=== PATIENT | male | born 1950 | race Caucasian/White ===

== ENCOUNTER 2017-07-08 14:50 | Inpatient (IN) | payer OTHER ==
[2017-07-08] MEDS ORDERED: NS 1/2 1000 ML IV 1,000 ML IV ONE (16:10)
[2017-07-08] MEDS: LEVAQUIN PREMIX IV 750 MG 750 MG/150 ML BAG IV SCH (16:25)
[2017-07-08] MEDS: NS 1/2 1000 ML IV 1,000 ML IV SCH (16:26)
[2017-07-08 17:01] LABS: ALANINE AMINOTRANSFERASE 15 Units/L (12-78); ALBUMIN 3.5 g/dL (3.4-5.0); ALKALINE PHOSPHATASE 77 Units/L (46-116); ASPARTATE AMINO TRANSFERASE 18 Units/L (15-37); BLOOD UREA NITROGEN 17 mg/dL (7-18); CALCIUM 8.8 mg/dL (8.5-10.1); CHLORIDE 97 mmol/L (98-107); CREATININE 1.04 mg/dL (0.70-1.30); SODIUM 134 mmol/L (136-145); TOTAL PROTEIN 6.7 g/dL (6.4-8.2); eGFR BLACK RACES > 60 (>60); eGFR NON BLACK RACES > 60 (>60)
[2017-07-08 17:07] LABS: BASOPHILS % (AUTO) 0.2 % (0.2-1.0); EOSINOPHILS # (AUTO) 0.1 x10^3/uL (0.0-0.2); EOSINOPHILS % (AUTO) 0.3 % (0.9-2.9); HEMATOCRIT 45.2 % (42.0-54.0); HEMOGLOBIN 15.2 g/dL (13.5-18.0); LYMPHOCYTES # (AUTO) 0.6 X10^3/uL (1.3-2.9); LYMPHOCYTES % (AUTO) 2.6 % (21.0-51.0); MEAN CORPUSCULAR HEMOGLOBIN 28.9 pg (27.0-34.0); MEAN CORPUSCULAR HGB CONC 33.6 g/dL (33.0-35.0); MEAN PLATELET VOLUME 7.3 fL (7.4-11.0); MONOCYTES # (AUTO) 1.7 x10^3/uL (0.3-0.8); MONOCYTES % (AUTO) 6.9 % (0.0-13.0); NEUTROPHILS # (AUTO) 21.8 x10^3/uL (2.2-4.8); PLATELET COUNT 216 X10^3/uL (150.0-450.0); RED BLOOD COUNT 5.26 X10^6/uL (4.7-6.0); RED CELL DISTRIBUTION WIDTH 15.9 % (11.6-16.5)
[2017-07-08] MEDS: DUONEB 0.5 MG/3 MG NEB SCH ×2 (17:11→21:45)
[2017-07-08 17:16] LABS: BAND NEUTROPHILS % 3 % (0-10); PLATELET MORPHOLOGY COMMENT NORMAL (NORMAL)
[2017-07-08 17:17] LABS: WHITE BLOOD COUNT 24.2 X10^3/uL (3.6-10.0)
[2017-07-08 17:49] VITALS: BMI 23.1
--- NOTE | 2017-07-08 18:17 | RAD ---
Examination: Chest, PA and lateral views History: Pneumonia, cough and SOB Comparison reference 12/26/2016 Findings: Continued normal heart size with no acute pulmonary, pleural or mediastinal abnormality. Impression: No interval change or acute chest findings. Reported By:
[2017-07-08] MEDS: ZOSYN VIAL 4.5 GM 4.5 GM in NS 100 ML IV + SPIKE MINIBAG* 100 ML IV SCH ×2 (18:23→21:38)
[2017-07-08] MEDS: ROBITUSSIN DM PO SCH ×2 (18:25→21:37)
[2017-07-08] MEDS ORDERED: NS 100 ML IV + SPIKE MINIBAG* 100 ML IV ONE (20:36)
[2017-07-08] MEDS: SOLU-Medrol 125 MG VIAL IVP SCH (21:39)
[2017-07-08] MEDS: PULMICORT NEB TX 0.5 MG NEB SCH (21:45)
[2017-07-08] MEDS: BROVANA IN SCH (21:45)
[2017-07-09] MEDS: DUONEB 0.5 MG/3 MG NEB SCH ×6 (00:44→20:43)
[2017-07-09] MEDS: ZOSYN VIAL 4.5 GM 4.5 GM in NS 100 ML IV + SPIKE MINIBAG* 100 ML IV SCH ×3 (05:58→21:41)
[2017-07-09] MEDS: SOLU-Medrol 125 MG VIAL IVP SCH ×3 (05:58→21:40)
[2017-07-09] MEDS: ROBITUSSIN DM PO SCH ×4 (08:38→21:40)
[2017-07-09] MEDS: LEVAQUIN PREMIX IV 750 MG 750 MG/150 ML BAG IV SCH (08:38)
[2017-07-09] MEDS: PULMICORT NEB TX 0.5 MG NEB SCH ×2 (09:22→20:43)
[2017-07-09] MEDS: BROVANA IN SCH ×2 (09:22→20:44)
[2017-07-09] MEDS ORDERED: NS 100 ML IV + SPIKE MINIBAG* 100 ML IV ONE (13:51)
[2017-07-09] MEDS: NS 1/2 1000 ML IV 1,000 ML IV SCH ×2 (14:09→21:44)
[2017-07-09] MEDS: TUSSIONEX PENNKINETIC SUSP PO PRN (20:46)
[2017-07-10] MEDS: DUONEB 0.5 MG/3 MG NEB SCH ×6 (00:54→21:34)
[2017-07-10] MEDS: SOLU-Medrol 125 MG VIAL IVP SCH ×3 (05:12→21:44)
[2017-07-10] MEDS: ZOSYN VIAL 4.5 GM 4.5 GM in NS 100 ML IV + SPIKE MINIBAG* 100 ML IV SCH ×3 (05:13→21:44)
[2017-07-10 06:36] LABS: BASOPHILS % (AUTO) 0.1 % (0.2-1.0); HEMATOCRIT 37.6 % (42.0-54.0); HEMOGLOBIN 12.9 g/dL (13.5-18.0); LYMPHOCYTES # (AUTO) 0.2 X10^3/uL (1.3-2.9); MEAN CORPUSCULAR HEMOGLOBIN 29.1 pg (27.0-34.0); MEAN CORPUSCULAR HGB CONC 34.2 g/dL (33.0-35.0); MEAN CORPUSCULAR VOLUME 85.1 fL (80.0-100.0); MEAN PLATELET VOLUME 7.5 fL (7.4-11.0); MONOCYTES # (AUTO) 0.6 x10^3/uL (0.3-0.8); MONOCYTES % (AUTO) 3.2 % (0.0-13.0); NEUTROPHILS # (AUTO) 16.7 x10^3/uL (2.2-4.8); NEUTROPHILS % (AUTO) 95.7 % (42.0-75.0); PLATELET COUNT 177 X10^3/uL (150.0-450.0); RED BLOOD COUNT 4.42 X10^6/uL (4.7-6.0); RED CELL DISTRIBUTION WIDTH 15.8 % (11.6-16.5); WHITE BLOOD COUNT 17.5 X10^3/uL (3.6-10.0)
[2017-07-10 06:52] LABS: ALANINE AMINOTRANSFERASE 18 Units/L (12-78); ALBUMIN 2.8 g/dL (3.4-5.0); ALKALINE PHOSPHATASE 67 Units/L (46-116); ASPARTATE AMINO TRANSFERASE 13 Units/L (15-37); BLOOD UREA NITROGEN 18 mg/dL (7-18); CALCIUM 8.3 mg/dL (8.5-10.1); CARBON DIOXIDE 26.5 mmol/L (21-32); CHLORIDE 99 mmol/L (98-107); COR CA(FOR HYPOALB) 9.3 mg/dL (8.5-10.1); COR NA(FOR HYPERGLY) 135 mmol/L (136-145); CREATININE 1.05 mg/dL (0.70-1.30); SODIUM 133 mmol/L (136-145); TOTAL PROTEIN 5.9 g/dL (6.4-8.2); eGFR BLACK RACES > 60 (>60); eGFR NON BLACK RACES > 60 (>60)
[2017-07-10 07:14] LABS: PLATELET MORPHOLOGY COMMENT NORMAL (NORMAL)
[2017-07-10] MEDS ORDERED: POTASSIUM CHL 40 MEQ/NS 0.45% 500 ML IV PRN (07:26)
[2017-07-10] MEDS ORDERED: POTASSIUM CHL 60 MEQ/NS 0.45% 500 ML IV PRN (07:26)
[2017-07-10] MEDS ORDERED: K-LYTE EFFERVESCENT PO PRN (07:26)
[2017-07-10] MEDS ORDERED: K-RIDER 10 MEQ/NS 100 ML 10 MEQ/100 ML BAG IV PRN (07:26)
[2017-07-10] MEDS ORDERED: MAGNESIUM SULFATE 1 GM/100 mL PREMIX 1 GM/100 ML BAG IV PRN (07:26)
[2017-07-10] MEDS ORDERED: POTASSIUM CHLORIDE LIQ 20 MEQ UDC PO PRN (07:26)
[2017-07-10] MEDS ORDERED: MAG-OX TAB PO PRN (07:26)
[2017-07-10] MEDS: PULMICORT NEB TX 0.5 MG NEB SCH ×2 (09:11→21:34)
[2017-07-10] MEDS: BROVANA IN SCH ×2 (09:11→21:35)
[2017-07-10] MEDS: LEVAQUIN PREMIX IV 750 MG 750 MG/150 ML BAG IV SCH (10:11)
[2017-07-10] MEDS: NS 1/2 1000 ML IV 1,000 ML IV SCH ×2 (10:11→23:13)
[2017-07-10] MEDS: ROBITUSSIN DM PO SCH ×4 (10:12→21:43)
--- NOTE | 2017-07-10 10:20 | RAD ---
HISTORY: CHF with shortness of breath Study: Two-view chest Comparison: 07/08/2017 Findings: The trachea is midline. The cardiac silhouette is unremarkable. The lungs demonstrate stable chroni c interstitial changes without focal infiltrate or effusion.. The bony thorax is unremarkable. IMPRESSION: 1. Stable chest. Reported By:
[2017-07-10 11:37] LABS: ABG BASE EXCESS 4.2 mmol/L (-2.0-2.0); ABG HCO3 28.4 mmol/L (22-26)
[2017-07-10] MEDS: PROTONIX TAB 40 MG PO SCH (14:41)
[2017-07-10] MEDS: TUSSIONEX PENNKINETIC SUSP PO PRN (20:40)
[2017-07-11] MEDS: DUONEB 0.5 MG/3 MG NEB SCH ×3 (00:40→09:05)
[2017-07-11] MEDS: SOLU-Medrol 125 MG VIAL IVP SCH (05:04)
[2017-07-11] MEDS: ZOSYN VIAL 4.5 GM 4.5 GM in NS 100 ML IV + SPIKE MINIBAG* 100 ML IV SCH (05:04)
[2017-07-11 05:47] LABS: BASOPHILS % (AUTO) 0.1 % (0.2-1.0); HEMATOCRIT 37.9 % (42.0-54.0); HEMOGLOBIN 12.7 g/dL (13.5-18.0); LYMPHOCYTES # (AUTO) 0.1 X10^3/uL (1.3-2.9); LYMPHOCYTES % (AUTO) 0.9 % (21.0-51.0); MEAN CORPUSCULAR HEMOGLOBIN 28.9 pg (27.0-34.0); MEAN CORPUSCULAR HGB CONC 33.5 g/dL (33.0-35.0); MEAN CORPUSCULAR VOLUME 86.3 fL (80.0-100.0); MEAN PLATELET VOLUME 7.4 fL (7.4-11.0); MONOCYTES # (AUTO) 0.5 x10^3/uL (0.3-0.8); MONOCYTES % (AUTO) 3.4 % (0.0-13.0); NEUTROPHILS # (AUTO) 13.4 x10^3/uL (2.2-4.8); NEUTROPHILS % (AUTO) 95.6 % (42.0-75.0); PLATELET COUNT 165 X10^3/uL (150.0-450.0); RED CELL DISTRIBUTION WIDTH 16.5 % (11.6-16.5)
[2017-07-11 05:53] LABS: ALANINE AMINOTRANSFERASE 23 Units/L (12-78); ALBUMIN 2.6 g/dL (3.4-5.0); ALKALINE PHOSPHATASE 61 Units/L (46-116); ASPARTATE AMINO TRANSFERASE 9 Units/L (15-37); BLOOD UREA NITROGEN 20 mg/dL (7-18); CALCIUM 8.3 mg/dL (8.5-10.1); CARBON DIOXIDE 26.8 mmol/L (21-32); CHLORIDE 102 mmol/L (98-107); COR CA(FOR HYPOALB) 9.4 mg/dL (8.5-10.1); COR NA(FOR HYPERGLY) 138 mmol/L (136-145); CREATININE 1.06 mg/dL (0.70-1.30); SODIUM 136 mmol/L (136-145); TOTAL PROTEIN 5.6 g/dL (6.4-8.2); eGFR BLACK RACES > 60 (>60); eGFR NON BLACK RACES > 60 (>60)
[2017-07-11 07:14] LABS: PLATELET MORPHOLOGY COMMENT NORMAL (NORMAL)
[2017-07-11] MEDS: PROTONIX TAB 40 MG PO SCH (08:17)
[2017-07-11] MEDS: ROBITUSSIN DM PO SCH (08:17)
[2017-07-11] MEDS: LEVAQUIN PREMIX IV 750 MG 750 MG/150 ML BAG IV SCH (08:18)
[2017-07-11] MEDS ORDERED: DIFLUCAN PO SCH (09:00)
[2017-07-11] MEDS: PULMICORT NEB TX 0.5 MG NEB SCH (09:05)
[2017-07-11] MEDS: BROVANA IN SCH (09:06)
[2017-07-11 10:01] VITALS: BP 130/73
== END 2017-07-11 11:50 | disposition home health service (06) | DRG 178 ==
LOC: UNDOADMIN 14:50 → OBS 14:50 → MED/SURG 07-09 18:05
PROVIDERS: ADMIT Internal Medicine; ATTEND Internal Medicine
DX: J15.1 Pneumonia due to Pseudomonas (principal); R06.03 Acute respiratory distress; J44.1 Chronic obstructive pulmonary disease with (acute) exacerbation; I10 Essential (primary) hypertension; E03.8 Other specified hypothyroidism; Z85.51 Personal history of malignant neoplasm of bladder; Z85.819 Personal history of malignant neoplasm of unspecified site of lip, oral cavity, and pharynx; Z99.81 Dependence on supplemental oxygen
CPT/HCPCS: 36415; 36600; 71046; 80053; 82803; 83735; 85025; 87040; 87070; 87077; 87186; 87205; 94640; 94760; A4222; J1956; J2543; J2930; J7620; J7626

== ENCOUNTER → 2017-08-25 | Outpatient (CLI) | payer OTHER ==
--- NOTE | 2017-08-25 14:25 | MRI ---
MRI OF THE LUMBAR SPINE WITHOUT IV CONTRAST CLINICAL INDICATION: Chronic low back pain TECHNIQUE: Pre-contrast sagittal T1-, T2-, and T2-w fat-saturated images, and axial T1- and T2-w imag es of the lumbar spine. COMPARISON: CT 11/13/2014 FINDINGS: For purposes of this dictation, it is assumed that there are 5 [id number], lumbar-type vertebrae , and the most caudal fully segmented lumbar vertebra is labeled L5. The lumbar spine demonstrates normal alignment. Vertebral bodies are normal in height. There is a nor mal marrow signal pattern. Multilevel degenerative disc disease. The conus medullaris terminates at a normal level and the nerve roots of the cauda equina appear normal. Redemonstration of severe left-s ided hydronephrosis and hydroureter which is similar to prior. Redemonstration of infrarenal abdomina l aortic aneurysm measuring 4.3 cm, previously 5.3 cm. Evaluation of the individual levels demonstrates: L1-2: Disc bulge with mild central stenosis and mild bilateral neural foraminal stenosis. Bilateral f acet arthritis can be seen. L2-3: Mild disc bulge without central or neural foraminal stenosis. L3-4: Circumferential disc bulge with moderate to severe central stenosis which is exacerbated by rig ht-sided ligamentum flavum redundancy which effaces the right lateral reflux. Moderate right-sided ne ural foraminal stenosis. L4-5: Circumferential disc bulge with critical central stenosis as well as ligamentum flavum redundan cy and facet hypertrophy resulting in severe left and moderate right neural foraminal stenosis. L5-S1: Mild disc bulge without central stenosis. Mild bilateral neural foraminal stenosis. IMPRESSION: 1. Multilevel degenerative disc disease worst at L4-5 where there is critical central stenosis. 2. Chronic left-sided hydroureteronephrosis. Reported By:
== END ==
LOC: RAD 12:56
PROVIDERS: ATTEND Internal Medicine
DX: M51.36 Other intervertebral disc degeneration, lumbar region (principal); N28.89 Other specified disorders of kidney and ureter
CPT/HCPCS: 72148

== ENCOUNTER 2018-11-10 20:40 | Inpatient (IN) ==
[2018-11-10] MEDS ORDERED: ZOFRAN INJ 4 MG VIAL IVP PRN (21:55)
[2018-11-10 22:13] LABS: BASOPHILS % (AUTO) 0.2 % (0.2-1.0); HEMATOCRIT 34.8 % (42.0-54.0); HEMOGLOBIN 11.5 g/dL (13.5-18.0); LYMPHOCYTES # (AUTO) 0.5 X10^3/uL (1.3-2.9); MEAN CORPUSCULAR HEMOGLOBIN 29.7 pg (27.0-34.0); MEAN CORPUSCULAR HGB CONC 33.1 g/dL (33.0-35.0); MEAN CORPUSCULAR VOLUME 89.8 fL (80.0-100.0); MEAN PLATELET VOLUME 7.3 fL (7.4-11.0); MONOCYTES # (AUTO) 0.5 x10^3/uL (0.3-0.8); MONOCYTES % (AUTO) 4.4 % (0.0-13.0); NEUTROPHILS % (AUTO) 91.4 % (42.0-75.0); PLATELET COUNT 265 X10^3/uL (150.0-450.0); RED BLOOD COUNT 3.88 X10^6/uL (4.7-6.0); RED CELL DISTRIBUTION WIDTH 14.1 % (11.6-16.5)
[2018-11-10] MEDS: PROVENTIL NEB TX 0.083% 2.5MG/ 3ML NEB PRN (22:15)
[2018-11-10 22:26] LABS: ALBUMIN 2.8 g/dL (3.4-5.0); CALCIUM 8.8 mg/dL (8.5-10.1); COR CA(FOR HYPOALB) 9.8 mg/dL (8.5-10.1); CREATININE 1.6 mg/dL (0.70-1.30); TOTAL PROTEIN 6.1 g/dL (6.4-8.2)
[2018-11-10] MEDS: NS 1000 ML 1,000 ML IV SCH (22:29)
[2018-11-10] MEDS: BROVANA IN SCH (22:30)
[2018-11-10] MEDS: ROCEPHIN VIAL 1 GRAM IVP SCH (22:30)
[2018-11-10 22:39] LABS: PLATELET MORPHOLOGY COMMENT NORMAL (NORMAL)
[2018-11-11 01:28] VITALS: BMI 20.3
[2018-11-11 05:37] LABS: BASOPHILS % (AUTO) 0.3 % (0.2-1.0); EOSINOPHILS % (AUTO) 0.2 % (0.9-2.9); HEMATOCRIT 28.5 % (42.0-54.0); HEMOGLOBIN 9.8 g/dL (13.5-18.0); LYMPHOCYTES # (AUTO) 0.7 X10^3/uL (1.3-2.9); LYMPHOCYTES % (AUTO) 5.5 % (21.0-51.0); MEAN CORPUSCULAR HEMOGLOBIN 30.5 pg (27.0-34.0); MEAN CORPUSCULAR HGB CONC 34.3 g/dL (33.0-35.0); MEAN PLATELET VOLUME 7.6 fL (7.4-11.0); MONOCYTES # (AUTO) 1.1 x10^3/uL (0.3-0.8); MONOCYTES % (AUTO) 8.2 % (0.0-13.0); NEUTROPHILS # (AUTO) 11.5 x10^3/uL (2.2-4.8); NEUTROPHILS % (AUTO) 85.8 % (42.0-75.0); PLATELET COUNT 222 X10^3/uL (150.0-450.0); RED BLOOD COUNT 3.21 X10^6/uL (4.7-6.0); RED CELL DISTRIBUTION WIDTH 14.3 % (11.6-16.5); WHITE BLOOD COUNT 13.4 X10^3/uL (3.6-10.0)
[2018-11-11 06:06] LABS: ALANINE AMINOTRANSFERASE 11 Units/L (12-78); ALBUMIN 2.3 g/dL (3.4-5.0); ALKALINE PHOSPHATASE 63 Units/L (46-116); ASPARTATE AMINO TRANSFERASE 12 Units/L (15-37); BLOOD UREA NITROGEN 30 mg/dL (7-18); CALCIUM 8.1 mg/dL (8.5-10.1); CARBON DIOXIDE 29.1 mmol/L (21-32); CHLORIDE 100 mmol/L (98-107); COR CA(FOR HYPOALB) 9.5 mg/dL (8.5-10.1); COR NA(FOR HYPERGLY) 136 mmol/L (136-145); CREATININE 1.35 mg/dL (0.70-1.30); SODIUM 135 mmol/L (136-145); TOTAL PROTEIN 5.2 g/dL (6.4-8.2); eGFR NON BLACK RACES 56 (>60)
--- NOTE | 2018-11-11 09:27 | DR.H&P ---
H&P - History & Physical for Day of: H&P Date: 11/10/18 - Chief Complaint Chief Complaint: cannot urinate, passing large blood clots since bladder surgery this am - History of Present Illness History of Present Illness: 68 WM DIRECT ADMIT FROM DR CANTRELL OFFICE AFTER CO CANNOT URINATE SINCE 7AM. PT HAD [address] BL[address] REMOV[address] PER [address] SANTA UROLOGIST IN [place] THIS AM AND CO PASSING LARGE CLOTS. PT CO SEVERE PAIN, COULD NOT URINATE. PT HAD OUTPT BLACKMAN PLACED WITH IMMEDIATE RELIEF THEN LATER "STOPPED UP". PT HAS PMH OF BLADDER CA, THROAT CANCER IN REMISSION, HTN, LSPINE DDD, COPD, RESP FAILURE. PT ADMITTED FOR TREATMENT OF ACUTE ILLNESS. - Past Medical History Past Medical History: Arthritis, COPD, Hypertension Additional Medical History: THROAT CANCER- IN REMISSION. BLADDER CANCER- FOLLOWED BY DR SANTA - Past Surgical History Surgical History: Other Additional Surgical History: PT HAS PEG TUBE PLACEMENT AND REMOVAL, THROAT CANCER SURGERY. BLADDER CANCER SURGERY - Family History Family Medical History: Cancer - Social History Does patient currently use any type of tobacco product: Yes Have you used tobacco products in the last 12 months: Yes Type of Tobacco Use: Cigarettes Does any household member use tobacco: Yes Alcohol Use: None Drug Use: None - Medications Home Medications: No Known Drug Allergies Allergy (Verified 12/24/16 15:32) - Review of Systems Constitutional: Weakness Eyes: No Symptoms Reported ENT: No Symptoms Reported Respiratory: Shortness of Breath Cardiovascular: No Symptoms Reported Gastrointestinal: Abdominal Pain Genitourinary: Incontinence, Hematuria Musculoskeletal: Back Pain Skin: No Symptoms Reported Neurological: Weakness - Physical Exam Vital Signs: Temperature 98.2 F Pulse Rate [Brachial] 95 Pulse Rate 88 Respiratory Rate 20 Blood Pressure [Right Arm] 109/66 Blood Pressure [Left Arm] 130/64 Blood Pressure 130/73 O2 Sat by Pulse Oximetry 96 Oriented: Normal Eyes: Normal Ear: Normal Nose: Normal Throat: Normal Respiratory: Diminished Throughout Cardiovascular: Normal : Normal Auscultation: Bowel Sounds: Normal Palpation: Normal Tenderness: Normal Skin: Normal Musculoskeletal: Back:Lumbar Psychiatric: Anxiety Affect: Anxious Speech Pattern: Clear, Appropriate - Assessment/Plan (1) Hematuria Status: Acute Plan: ADMITTED, ADMISSION LABS CBC CMP. CXR Q AM, RESP CONSULT. IV ROCEPHIN, STRICT I& OS. BLACKMAN CATH CARE, GENTLE IV HYDRATION (2) Urinary outflow obstruction Status: Acute (3) History of changes in urinary output Status: Acute (4) COPD (chronic obstructive pulmonary disease) Status: Acute (5) Hypertension Status: Chronic (6) History of throat cancer Status: Chronic (7) History of bladder cancer Status: Chronic - Allergies Allergies/Adverse Reactions: Allergies Allergy/AdvReac Type Severity Reaction Status Date / Time No Known Drug Allergies Allergy Verified 12/24/16 15:32
[2018-11-11] MEDS: BROVANA IN SCH ×3 (09:40→21:50)
[2018-11-11] MEDS: PROVENTIL NEB TX 0.083% 2.5MG/ 3ML NEB PRN ×2 (09:43→13:20)
[2018-11-11] MEDS: ZEBETA TAB 5 MG PO SCH (10:28)
[2018-11-11] MEDS: SYNTHROID 100 mcg TAB PO SCH (10:30)
--- NOTE | 2018-11-11 10:37 | RAD ---
Examination: AP chest History: COPD, SOB Comparison 07/10/2017 Findings: Continued normal heart size with significant symmetric pulmonary hyperaeration and diffuse chronic interstitial thickening. There is now suspicious appearance for an acute superimposed infiltrate in the left sub apical upper lobe. There is no discrete mass, adenopathy or pleural fluid identified. Impression: Continued findings consistent with COPD and chronic interstitial lung disease. There may be an acute superimposed infiltrate in the left upper lobe, see above. Follow-up suggested. Reported By:
[2018-11-11] MEDS: NS 1000 ML 1,000 ML IV SCH (12:02)
[2018-11-11] MEDS ORDERED: PHARMACY CONSULT - DOSE _____ XX SCH (14:00)
[2018-11-11] MEDS: NORCO 10/325 TAB PO PRN (17:05)
[2018-11-11 19:37] LABS: HEMATOCRIT 26.7 % (42.0-54.0); HEMOGLOBIN 9.2 g/dL (13.5-18.0)
[2018-11-11] MEDS: COLACE CAP 100 MG PO SCH (21:35)
[2018-11-11] MEDS: MILK OF MAGNESIA PO SCH (21:36)
[2018-11-11] MEDS: ROCEPHIN VIAL 1 GRAM IVP SCH (21:36)
[2018-11-12 05:19] LABS: BASOPHILS % (AUTO) 0.3 % (0.2-1.0); EOSINOPHILS # (AUTO) 0.3 x10^3/uL (0.0-0.2); EOSINOPHILS % (AUTO) 5.1 % (0.9-2.9); HEMATOCRIT 26.4 % (42.0-54.0); HEMOGLOBIN 9.1 g/dL (13.5-18.0); LYMPHOCYTES # (AUTO) 0.5 X10^3/uL (1.3-2.9); LYMPHOCYTES % (AUTO) 7.8 % (21.0-51.0); MEAN CORPUSCULAR HEMOGLOBIN 30.5 pg (27.0-34.0); MEAN CORPUSCULAR HGB CONC 34.3 g/dL (33.0-35.0); MEAN PLATELET VOLUME 6.9 fL (7.4-11.0); MONOCYTES # (AUTO) 0.9 x10^3/uL (0.3-0.8); MONOCYTES % (AUTO) 14.1 % (0.0-13.0); NEUTROPHILS # (AUTO) 4.4 x10^3/uL (2.2-4.8); NEUTROPHILS % (AUTO) 72.7 % (42.0-75.0); PLATELET COUNT 226 X10^3/uL (150.0-450.0); RED BLOOD COUNT 2.97 X10^6/uL (4.7-6.0); RED CELL DISTRIBUTION WIDTH 14.5 % (11.6-16.5); WHITE BLOOD COUNT 6.1 X10^3/uL (3.6-10.0)
[2018-11-12 05:36] LABS: ALANINE AMINOTRANSFERASE 11 Units/L (12-78); ALBUMIN 2.4 g/dL (3.4-5.0); ALKALINE PHOSPHATASE 62 Units/L (46-116); ASPARTATE AMINO TRANSFERASE 11 Units/L (15-37); BLOOD UREA NITROGEN 20 mg/dL (7-18); CALCIUM 8.3 mg/dL (8.5-10.1); CARBON DIOXIDE 35.3 mmol/L (21-32); CHLORIDE 104 mmol/L (98-107); COR CA(FOR HYPOALB) 9.6 mg/dL (8.5-10.1); CREATININE 1.06 mg/dL (0.70-1.30); SODIUM 141 mmol/L (136-145); TOTAL PROTEIN 5.2 g/dL (6.4-8.2); eGFR NON BLACK RACES > 60 (>60)
[2018-11-12] MEDS: NS 1000 ML 1,000 ML IV SCH ×3 (07:43→16:01)
[2018-11-12] MEDS: BROVANA IN SCH ×2 (09:06→21:07)
[2018-11-12] MEDS: PROVENTIL NEB TX 0.083% 2.5MG/ 3ML NEB PRN ×3 (09:09→20:45)
[2018-11-12] MEDS: SYNTHROID 100 mcg TAB PO SCH (09:28)
[2018-11-12] MEDS: MILK OF MAGNESIA PO SCH ×2 (09:28→21:00)
[2018-11-12] MEDS: ZEBETA TAB 5 MG PO SCH (09:28)
[2018-11-12] MEDS: NORCO 10/325 TAB PO PRN ×2 (09:30→20:55)
[2018-11-12] MEDS ORDERED: TRANEXAMIC ACID 1,000 MG in NS 100 ML IV 100 ML IV SCH (12:00)
[2018-11-12] MEDS ORDERED: TRANEXAMIC ACID 1,000 MG in NS 1000 ML 1,000 ML IV SCH (12:17)
[2018-11-12] MEDS: ROBITUSSIN DM PO SCH ×3 (14:06→20:55)
[2018-11-12] MEDS ORDERED: NS 100 ML IV 100 ML ONE (14:33)
[2018-11-12 14:41] LABS: BASOPHILS % (AUTO) 0.5 % (0.2-1.0); EOSINOPHILS # (AUTO) 0.4 x10^3/uL (0.0-0.2); EOSINOPHILS % (AUTO) 6.2 % (0.9-2.9); HEMATOCRIT 26.6 % (42.0-54.0); HEMOGLOBIN 9.1 g/dL (13.5-18.0); LYMPHOCYTES # (AUTO) 0.6 X10^3/uL (1.3-2.9); LYMPHOCYTES % (AUTO) 9.4 % (21.0-51.0); MEAN CORPUSCULAR HEMOGLOBIN 30.6 pg (27.0-34.0); MEAN CORPUSCULAR HGB CONC 34.2 g/dL (33.0-35.0); MEAN CORPUSCULAR VOLUME 89.6 fL (80.0-100.0); MEAN PLATELET VOLUME 6.5 fL (7.4-11.0); MONOCYTES # (AUTO) 0.9 x10^3/uL (0.3-0.8); MONOCYTES % (AUTO) 14.4 % (0.0-13.0); NEUTROPHILS # (AUTO) 4.4 x10^3/uL (2.2-4.8); NEUTROPHILS % (AUTO) 69.5 % (42.0-75.0); PLATELET COUNT 260 X10^3/uL (150.0-450.0); RED BLOOD COUNT 2.97 X10^6/uL (4.7-6.0); RED CELL DISTRIBUTION WIDTH 14.5 % (11.6-16.5); WHITE BLOOD COUNT 6.3 X10^3/uL (3.6-10.0)
[2018-11-12] MEDS ORDERED: TRANEXAMIC ACID ONE (14:44)
[2018-11-12] MEDS: PULMICORT NEB TX 0.5 MG NEB SCH ×2 (16:58→20:45)
[2018-11-12] MEDS: COLACE CAP 100 MG PO SCH (20:55)
[2018-11-12] MEDS: ROCEPHIN VIAL 1 GRAM IVP SCH (20:55)
[2018-11-12] MEDS: MORPHINE SULFATE INJ 2 MG INJ IVP PRN (23:19)
[2018-11-13 05:30] LABS: BASOPHILS % (AUTO) 0.3 % (0.2-1.0); EOSINOPHILS # (AUTO) 0.4 x10^3/uL (0.0-0.2); EOSINOPHILS % (AUTO) 5.7 % (0.9-2.9); HEMOGLOBIN 8.9 g/dL (13.5-18.0); LYMPHOCYTES # (AUTO) 0.7 X10^3/uL (1.3-2.9); LYMPHOCYTES % (AUTO) 9.8 % (21.0-51.0); MEAN CORPUSCULAR HGB CONC 34.2 g/dL (33.0-35.0); MEAN CORPUSCULAR VOLUME 90.5 fL (80.0-100.0); MEAN PLATELET VOLUME 6.9 fL (7.4-11.0); MONOCYTES # (AUTO) 1.1 x10^3/uL (0.3-0.8); MONOCYTES % (AUTO) 15.1 % (0.0-13.0); NEUTROPHILS # (AUTO) 4.9 x10^3/uL (2.2-4.8); NEUTROPHILS % (AUTO) 69.1 % (42.0-75.0); PLATELET COUNT 289 X10^3/uL (150.0-450.0); RED BLOOD COUNT 2.87 X10^6/uL (4.7-6.0); RED CELL DISTRIBUTION WIDTH 14.5 % (11.6-16.5); WHITE BLOOD COUNT 7.1 X10^3/uL (3.6-10.0)
[2018-11-13 05:49] LABS: ALANINE AMINOTRANSFERASE 13 Units/L (12-78); ALBUMIN 2.5 g/dL (3.4-5.0); ALKALINE PHOSPHATASE 62 Units/L (46-116); ASPARTATE AMINO TRANSFERASE 12 Units/L (15-37); BLOOD UREA NITROGEN 14 mg/dL (7-18); CALCIUM 8.2 mg/dL (8.5-10.1); CARBON DIOXIDE 31.9 mmol/L (21-32); CHLORIDE 103 mmol/L (98-107); COR CA(FOR HYPOALB) 9.4 mg/dL (8.5-10.1); CREATININE 0.92 mg/dL (0.70-1.30); SODIUM 138 mmol/L (136-145); TOTAL PROTEIN 5.5 g/dL (6.4-8.2); eGFR NON BLACK RACES > 60 (>60)
[2018-11-13] MEDS: NS 1000 ML 1,000 ML IV SCH (06:51)
[2018-11-13] MEDS: SYNTHROID 100 mcg TAB PO SCH (08:48)
[2018-11-13] MEDS: ZEBETA TAB 5 MG PO SCH (08:48)
[2018-11-13] MEDS: ROBITUSSIN DM PO SCH ×2 (08:48→13:16)
[2018-11-13] MEDS: MILK OF MAGNESIA PO SCH (08:51)
[2018-11-13] MEDS: MORPHINE SULFATE INJ 2 MG INJ IVP PRN (08:56)
[2018-11-13] MEDS: BROVANA IN SCH (09:10)
--- NOTE | 2018-11-13 09:16 | RAD ---
HISTORY: Pneumonia. Throat cancer. COPD. Study: AP portable chest Comparison: 11/11/2018, 07/10/2017 Findings: There are findings of chronic interstitial scarring. There is focal opacity in the left upper lobe, possibly due to underlying scarring as it is not felt to be significantly changed from the prior examination. This could be focal infiltrate . It is new when compared to 07/10/2017. Continued follow-up is recommended. The heart size is normal. Mild thoracic spondylosis is noted. No acute bony abnormalities are identified. IMPRESSION: 1. Findings suggesting chronic obstructive pulmonary disease. 2. The focal opacity in the left upper lobe is not felt to be significantly changed. Additional follow-up in 10-14 days is recommended to ensure complete clearing. If it has not resolved by that time then CT scan is recommended. Reported By:
[2018-11-13] MEDS: PULMICORT NEB TX 0.5 MG NEB SCH (09:17)
[2018-11-13] MEDS: PROVENTIL NEB TX 0.083% 2.5MG/ 3ML NEB PRN (09:17)
[2018-11-13 13:15] VITALS: BP 159/76
== END 2018-11-13 14:00 | disposition home or self-care (01) | DRG 694 ==
LOC: MED/SURG 20:42
PROVIDERS: ADMIT Internal Medicine; ATTEND Internal Medicine
DX: D50.0 Iron deficiency anemia secondary to blood loss (chronic); I10 Essential (primary) hypertension; N13.8 Other obstructive and reflux uropathy; J44.9 Chronic obstructive pulmonary disease, unspecified; Z85.819 Personal history of malignant neoplasm of unspecified site of lip, oral cavity, and pharynx; R31.9 Hematuria, unspecified; Z85.51 Personal history of malignant neoplasm of bladder; Z87.448 Personal history of other diseases of urinary system; R33.8 Other retention of urine; N99.821 Postprocedural hemorrhage of a genitourinary system organ or structure following other procedure
CPT/HCPCS: 36415; 71010; 71045; 80053; 84132; 85014; 85018; 85025; 94640; 94760; A4222; J0696; J2270; J7030; J7050; J7613; J7626

== ENCOUNTER 2019-08-13 11:39 | Inpatient (IN) ==
[2019-08-13] MEDS ORDERED: SOLU-Medrol 125 MG VIAL IVP ONE (11:47)
[2019-08-13] MEDS: PULMICORT NEB TX 0.5 MG NEB SCH ×2 (12:11→20:00)
[2019-08-13] MEDS: DUONEB 0.5 MG/3 MG (3 mL) NEB SCH ×3 (12:11→20:00)
[2019-08-13 12:16] LABS: ABG BASE EXCESS 9.5 mmol/L (-2.0-2.0)
[2019-08-13 12:17] LABS: ABG ALLEN TEST POS; ABG HCO3 37.3 mmol/L (22-26)
[2019-08-13] MEDS: PROTONIX INJ 40 MG VIAL IVP SCH ×2 (12:35→20:29)
[2019-08-13] MEDS: NS 1000 ML 1,000 ML IV SCH (12:35)
[2019-08-13 13:00] LABS: BASOPHILS % (AUTO) 0.3 % (0.2-1.0); EOSINOPHILS % (AUTO) 0.2 % (0.9-2.9); HEMATOCRIT 46.7 % (42.0-54.0); HEMOGLOBIN 15.7 g/dL (13.5-18.0); LYMPHOCYTES # (AUTO) 0.6 X10^3/uL (1.3-2.9); MEAN CORPUSCULAR HEMOGLOBIN 29.9 pg (27.0-34.0); MEAN CORPUSCULAR HGB CONC 33.6 g/dL (33.0-35.0); MEAN CORPUSCULAR VOLUME 88.9 fL (80.0-100.0); MEAN PLATELET VOLUME 7.3 fL (7.4-11.0); MONOCYTES # (AUTO) 1.1 x10^3/uL (0.3-0.8); MONOCYTES % (AUTO) 15.1 % (0.0-13.0); NEUTROPHILS # (AUTO) 5.7 x10^3/uL (2.2-4.8); NEUTROPHILS % (AUTO) 76.4 % (42.0-75.0); PLATELET COUNT 175 X10^3/uL (150.0-450.0); RED BLOOD COUNT 5.25 X10^6/uL (4.7-6.0); RED CELL DISTRIBUTION WIDTH 16.3 % (11.6-16.5); WHITE BLOOD COUNT 7.4 X10^3/uL (3.6-10.0)
[2019-08-13 13:06] VITALS: BMI 21.2
[2019-08-13] MEDS: LEVAQUIN PREMIX IV 500 MG 500 MG/100 ML BAG IV SCH (13:06)
--- NOTE | 2019-08-13 13:08 | DR.H&P ---
H&P - History & Physical for Day of: H&P Date: 08/13/19 - Chief Complaint Chief Complaint: "CANNOT GET MY BREATH", SOB - History of Present Illness History of Present Illness: PT IS 69 WM DIRECT ADMIT FROM DR CANTRELL OFFICE WITH FAILED OUTPT ACUTE ON CHRONIC RESP FAILURE WITH COPD EXACERBATION. PT HAS PMH OF COPD WITH RESP FAILURE ON SUPPLEMENTAL O2. PT HAD ONSET OF INCREASED CCC LAST TUESDAY AND WAS STARTED ON LEVAQUIN PO AND CONTINUED DUO NEBS WITHOUT IMPROVEMENT. PT FAMILY REPORTS HE HAD BEEN IN BED ALL WEEKEND, VERY WEAK, UNSTEADY GAIT. PT HAS PMH OF HTN, THROAT CA IN REMISSION, BLADDER CANCER, HYPOTHYROIDISM, LSPINE DDD. PT ADMITTED FOR TREATMENT OF ACUTE RESP DISTRESS. - Past Medical History Past Medical History: Arthritis, COPD, GERD, Hypertension, Hypothyroidism Additional Medical History: THROAT CANCER- IN REMISSION. BLADDER CANCER- FOLLOWED BY DR SANTA - Past Surgical History Surgical History: Other Additional Surgical History: PT HAS PEG TUBE PLACEMENT AND REMOVAL, THROAT CANCER SURGERY. BLADDER CANCER SURGERY - Family History Family Medical History: Cancer - Social History Does patient currently use any type of tobacco product: Yes Have you used tobacco products in the last 12 months: Yes Type of Tobacco Use: Cigarettes Does any household member use tobacco: Yes Alcohol Use: None Drug Use: None Risks, benefits, and alternatives of opioids discussed: Yes Prescription drug monitoring program results: PDMP reviewed and no concerns identified - Medications Home Medications: No Known Drug Allergies Allergy (Verified 12/24/16 15:32) - Review of Systems Constitutional: Weakness Eyes: No Symptoms Reported ENT: No Symptoms Reported Respiratory: Cough, Shortness of Breath, SOB with Excertion, Pleuritic Pain, Sputum, Wheezing Cardiovascular: No Symptoms Reported. denies: Edema Gastrointestinal: Nausea Genitourinary: No Symptoms Reported Musculoskeletal: Back Pain Skin: No Symptoms Reported Neurological: Weakness - Physical Exam Vital Signs: Blood Pressure [Right Arm] 164/72 Blood Pressure [Left Arm] 159/76 Oriented: Normal Eyes: Normal Ear: Normal Nose: Normal Throat: Normal Respiratory: Diminished Throughout, Wheezes Throughout Cardiovascular: Normal : Normal Auscultation: Bowel Sounds: Normal Palpation: Normal Tenderness: Normal Skin: Decreased Turgur Musculoskeletal: Back:Thoracic, Back:Lumbar Psychiatric: Anxiety Affect: Anxious Speech Pattern: Clear, Appropriate, Delayed (DUE TO RESP DISTRESS) - Assessment/Plan (1) Acute respiratory distress Status: Acute Plan: ADMIT, ICU. ABG ON ADMISSION, RESP CONSULT, DUO NEBS. CXR ON ADMISSION, SPUTUM AND BLOOD CULTURES. GENTLE IV HYDRATION, BP CONTROL. IV SOLU MEDROL, PPI THERAPY, VERIFY HOME MEDICATIONS (2) COPD with acute bronchitis Status: Acute (3) History of bladder cancer Status: Chronic (4) History of throat cancer Status: Chronic (5) Hypertension Status: Chronic (6) Hyperthyroidism Status: Chronic - Allergies Allergies/Adverse Reactions: Allergies Allergy/AdvReac Type Severity Reaction Status Date / Time No Known Drug Allergies Allergy Verified 12/24/16 15:32
--- NOTE | 2019-08-13 13:13 | RAD ---
HISTORYR/O PNEUMONIA, COPD, SOBSTUDYCHEST x-ray, 1 VIEWCOMPARISONX-ray 11/13/2018FINDINGSThe trachea is midline. The cardiac silhouette is unremarkable .Lungs are hyperinflated suggesting COPD. Stable slightly nodular area in the left upper lobe is probably from scar as there is a linear component, also. No pneumothorax or pleural effusion is seen. Bilateral nipple shadows are seen. Mild prominence of the left renal hilum is unchanged.No acute bony abnormality is seen.IMPRESSIONNo acute cardiopulmonary abnormality is seen.Electronically signed by: Donavan Ortiz (Aug 13, 2019 13:11:55)
[2019-08-13 13:28] LABS: BLOOD UREA NITROGEN 24 mg/dL (7-18); CALCIUM 9.4 mg/dL (8.5-10.1); CARBON DIOXIDE 36.4 mmol/L (21-32); CHLORIDE 97 mmol/L (98-107); CREATININE 0.94 mg/dL (0.70-1.30); SODIUM 137 mmol/L (136-145); TROPONIN I 0.65 ng/mL (0-1.5); eGFR NON BLACK RACES > 60 (>60)
[2019-08-13 13:38] LABS: ALANINE AMINOTRANSFERASE 21 Units/L (12-78); ALBUMIN 3.2 g/dL (3.4-5.0); ALKALINE PHOSPHATASE 71 Units/L (46-116); ASPARTATE AMINO TRANSFERASE 29 Units/L (15-37); CKMB % 7.8 % (<4); CREATINE KINASE 76 Units/L (39-308); TOTAL PROTEIN 7.2 g/dL (6.4-8.2)
[2019-08-13 13:40] LABS: CREATINE KINASE MB 5.9 ng/mL (0-4.0)
[2019-08-13 15:28] LABS: BILIRUBIN,URINE NEGATIVE (NEGATIVE); BLOOD/HEMOGLOBIN,URINE 3+ (NEGATIVE); GLUCOSE, URINE NEGATIVE (NEGATIVE); KETONES,URINE 1+ (NEGATIVE); LEUKOCYTE ESTERASE ,URINE 1+ (NEGATIVE); NITRITES,URINE NEGATIVE (NEGATIVE); PROTEIN,URINE 4+ (NEGATIVE); UROBILINOGEN,URINE NORMAL (NORMAL)
[2019-08-13 15:29] LABS: APPEARANCE,URINE CLEAR (CLEAR); COLOR,URINE YELLOW (YELLOW)
[2019-08-13 15:58] LABS: SQUAMOUS EPITHELIAL CELL,UR FEW /HPF (NEGATIVE)
[2019-08-13 15:59] LABS: AMORPHOUS SEDIMENT,UR TRACE /HPF (NEGATIVE); BACTERIA,URINE NEGATIVE /HPF (NEGATIVE); HYALINE CASTS, URINE FEW /LPF (NEGATIVE); MUCUS,URINE MODERATE /HPF (NEGATIVE)
[2019-08-13] MEDS: NORCO 10/325 TAB PO PRN (17:39)
[2019-08-13] MEDS ORDERED: ZOFRAN INJ 4 MG VIAL IVP PRN (17:59)
[2019-08-13] MEDS: ZESTRIL TAB 10 MG PO SCH (18:10)
[2019-08-13] MEDS: VISTARIL PO SCH (18:31)
[2019-08-13 18:48] LABS: CKMB % 11.5 % (<4); TROPONIN I 0.76 ng/mL (0-1.5)
[2019-08-13 19:01] LABS: CREATINE KINASE MB 7.1 ng/mL (0-4.0)
[2019-08-13] MEDS: LOVENOX INJ 40 MG SYR SC SCH (20:29)
[2019-08-13] MEDS: SINGULAIR TAB 10 MG PO SCH (20:30)
[2019-08-13] MEDS: SOLU-Medrol 125 MG VIAL IVP SCH (21:35)
[2019-08-14 00:09] LABS: CKMB % 12.7 % (<4); TROPONIN I 0.48 ng/mL (0-1.5)
[2019-08-14 00:11] LABS: CREATINE KINASE MB 5.7 ng/mL (0-4.0)
[2019-08-14] MEDS: VISTARIL PO SCH ×4 (02:45→21:17)
[2019-08-14] MEDS ORDERED: LOPRESSOR INJ 5 MG AMP ONE ×3 (03:21→23:11)
[2019-08-14] MEDS: LOPRESSOR INJ 5 MG AMP IVP ONE ×2 (03:25→21:32)
[2019-08-14 05:23] LABS: BASOPHILS % (AUTO) 0.3 % (0.2-1.0); HEMATOCRIT 42.2 % (42.0-54.0); HEMOGLOBIN 14.3 g/dL (13.5-18.0); LYMPHOCYTES # (AUTO) 0.4 X10^3/uL (1.3-2.9); LYMPHOCYTES % (AUTO) 8.6 % (21.0-51.0); MEAN CORPUSCULAR VOLUME 88.2 fL (80.0-100.0); MEAN PLATELET VOLUME 7.7 fL (7.4-11.0); MONOCYTES # (AUTO) 0.3 x10^3/uL (0.3-0.8); MONOCYTES % (AUTO) 6.7 % (0.0-13.0); NEUTROPHILS # (AUTO) 3.5 x10^3/uL (2.2-4.8); NEUTROPHILS % (AUTO) 84.4 % (42.0-75.0); PLATELET COUNT 153 X10^3/uL (150.0-450.0); RED BLOOD COUNT 4.78 X10^6/uL (4.7-6.0); RED CELL DISTRIBUTION WIDTH 15.8 % (11.6-16.5); WHITE BLOOD COUNT 4.2 X10^3/uL (3.6-10.0)
[2019-08-14 05:36] LABS: ALANINE AMINOTRANSFERASE 17 Units/L (12-78); ALKALINE PHOSPHATASE 65 Units/L (46-116); ASPARTATE AMINO TRANSFERASE 18 Units/L (15-37); BLOOD UREA NITROGEN 20 mg/dL (7-18); CALCIUM 8.9 mg/dL (8.5-10.1); CARBON DIOXIDE 32.9 mmol/L (21-32); CHLORIDE 100 mmol/L (98-107); COR CA(FOR HYPOALB) 9.7 mg/dL (8.5-10.1); COR NA(FOR HYPERGLY) 139 mmol/L (136-145); CREATININE 0.91 mg/dL (0.70-1.30); SODIUM 138 mmol/L (136-145); TOTAL PROTEIN 6.6 g/dL (6.4-8.2); eGFR NON BLACK RACES > 60 (>60)
[2019-08-14] MEDS: NS 1000 ML 1,000 ML IV SCH ×2 (05:42→18:20)
[2019-08-14] MEDS: SOLU-Medrol 125 MG VIAL IVP SCH ×3 (05:42→21:16)
[2019-08-14] MEDS ORDERED: Atrovent NEB TX 0.02% NEB PRN (08:22)
[2019-08-14] MEDS: PULMICORT NEB TX 0.5 MG NEB SCH ×2 (08:22→22:53)
[2019-08-14] MEDS ORDERED: MUCOMYST 20% 200 MG/ML NEB SCH (09:00)
[2019-08-14] MEDS ORDERED: XOPENEX 1.25 MG/3 ML NEBULE NEB SCH (09:00)
[2019-08-14] MEDS: LEVAQUIN PREMIX IV 500 MG 500 MG/100 ML BAG IV SCH (09:03)
[2019-08-14] MEDS: SYNTHROID 100 mcg TAB PO SCH (09:05)
[2019-08-14] MEDS: PROTONIX INJ 40 MG VIAL IVP SCH ×2 (09:05→21:15)
[2019-08-14] MEDS: ZESTRIL TAB 10 MG PO SCH ×2 (09:06→21:16)
[2019-08-14] MEDS: NORCO 10/325 TAB PO PRN (09:06)
[2019-08-14 09:16] LABS: ABG BASE EXCESS 10.6 mmol/L (-2.0-2.0)
[2019-08-14 09:17] LABS: ABG ALLEN TEST POS; ABG HCO3 37.4 mmol/L (22-26)
[2019-08-14] MEDS: XOPENEX 1.25 MG/3 ML NEBULE NEB SCH ×2 (12:20→18:00)
[2019-08-14] MEDS: MUCOMYST 20% 200 MG/ML NEB SCH ×2 (12:20→18:00)
[2019-08-14] MEDS: NORCO 10/325 TAB PO SCH ×3 (12:30→21:17)
[2019-08-14] MEDS: ZOSYN VIAL 3.375 GRAMS 3.375 G in NS 100 ML IV + SPIKE MINIBAG* 100 ML IV SCH ×3 (12:32→21:14)
--- NOTE | 2019-08-14 17:53 | RAD ---
CHEST, 1 VIEWHISTORY: SOB, DECREASED [id number]: AP view of the chest.Comparison:August 13, 2019Findings:The cardiomediastinal silhouette is normal. No focal consolidations, pleural effusions or pneumothorax. Osseous structures demonstrate no acute abnormality. Bilateral hyperexpansion and interstitial prominence.IMPRESSION:1. No acute cardiopulmonary process.2. Findings of COPD.Electronically signed by: MITCH OLEA (Aug 14, 2019 17:51:59)
[2019-08-14] MEDS: LASIX IVP SCH (18:27)
[2019-08-14] MEDS: NICOTINE PATCH TD SCH (18:27)
[2019-08-14] MEDS: ROBITUSSIN DM PO SCH ×2 (18:28→21:15)
[2019-08-14 18:41] LABS: CKMB % 8.6 % (<4); CREATINE KINASE MB 3.8 ng/mL (0-4.0); TROPONIN I 0.2 ng/mL (0-1.5)
[2019-08-14 20:10] LABS: BILIRUBIN,URINE NEGATIVE (NEGATIVE); BLOOD/HEMOGLOBIN,URINE 1+ (NEGATIVE); GLUCOSE, URINE NEGATIVE (NEGATIVE); KETONES,URINE NEGATIVE (NEGATIVE); LEUKOCYTE ESTERASE ,URINE NEGATIVE (NEGATIVE); NITRITES,URINE NEGATIVE (NEGATIVE); PROTEIN,URINE 2+ (NEGATIVE); UROBILINOGEN,URINE NORMAL (NORMAL)
[2019-08-14 20:16] LABS: APPEARANCE,URINE CLEAR (CLEAR); COLOR,URINE PALE YELLOW (YELLOW)
[2019-08-14 20:17] LABS: BACTERIA,URINE NEGATIVE /HPF (NEGATIVE); RBC,URINE 0-2 /HPF (0-3); SQUAMOUS EPITHELIAL CELL,UR RARE /HPF (NEGATIVE)
[2019-08-14] MEDS: LOVENOX INJ 40 MG SYR SC SCH (21:14)
[2019-08-14] MEDS: SINGULAIR TAB 10 MG PO SCH (21:16)
[2019-08-14] MEDS: FLOMAX PO SCH (21:17)
[2019-08-14] MEDS ORDERED: LOPRESSOR INJ 5 MG AMP IVP ONE ×2 (21:30→23:07)
[2019-08-14] MEDS: LOPRESSOR TAB 25 MG PO SCH (22:15)
[2019-08-15] MEDS ORDERED: CARDIZEM INJ 125 MG VIAL 125 MG in NS 100 ML IV 100 ML IV PRN (00:17)
[2019-08-15] MEDS: NORCO 10/325 TAB PO SCH ×6 (00:46→20:53)
[2019-08-15 05:55] LABS: BASOPHILS % (AUTO) 0.1 % (0.2-1.0); HEMATOCRIT 40.1 % (42.0-54.0); HEMOGLOBIN 13.7 g/dL (13.5-18.0); LYMPHOCYTES # (AUTO) 0.2 X10^3/uL (1.3-2.9); LYMPHOCYTES % (AUTO) 2.3 % (21.0-51.0); MEAN CORPUSCULAR HEMOGLOBIN 30.4 pg (27.0-34.0); MEAN CORPUSCULAR HGB CONC 34.2 g/dL (33.0-35.0); MEAN CORPUSCULAR VOLUME 88.8 fL (80.0-100.0); MEAN PLATELET VOLUME 7.7 fL (7.4-11.0); MONOCYTES # (AUTO) 0.6 x10^3/uL (0.3-0.8); MONOCYTES % (AUTO) 5.7 % (0.0-13.0); NEUTROPHILS % (AUTO) 91.9 % (42.0-75.0); PLATELET COUNT 158 X10^3/uL (150.0-450.0); RED BLOOD COUNT 4.52 X10^6/uL (4.7-6.0); RED CELL DISTRIBUTION WIDTH 15.6 % (11.6-16.5); WHITE BLOOD COUNT 9.8 X10^3/uL (3.6-10.0)
[2019-08-15 05:59] LABS: ALANINE AMINOTRANSFERASE 19 Units/L (12-78); ALBUMIN 2.8 g/dL (3.4-5.0); ALKALINE PHOSPHATASE 55 Units/L (46-116); ASPARTATE AMINO TRANSFERASE 15 Units/L (15-37); BLOOD UREA NITROGEN 25 mg/dL (7-18); CALCIUM 8.6 mg/dL (8.5-10.1); CARBON DIOXIDE 37.6 mmol/L (21-32); CHLORIDE 99 mmol/L (98-107); COR CA(FOR HYPOALB) 9.6 mg/dL (8.5-10.1); COR NA(FOR HYPERGLY) 140 mmol/L (136-145); CREATINE KINASE 30 Units/L (39-308); CREATINE KINASE MB 2.4 ng/mL (0-4.0); CREATININE 1.08 mg/dL (0.70-1.30); SODIUM 140 mmol/L (136-145); TOTAL PROTEIN 6.2 g/dL (6.4-8.2); TROPONIN I 0.16 ng/mL (0-1.5); eGFR NON BLACK RACES > 60 (>60)
[2019-08-15 06:18] LABS: BAND NEUTROPHILS % 3 % (0-10); PLATELET MORPHOLOGY COMMENT NORMAL (NORMAL)
[2019-08-15] MEDS: ZOSYN VIAL 3.375 GRAMS 3.375 G in NS 100 ML IV + SPIKE MINIBAG* 100 ML IV SCH ×3 (06:19→22:03)
[2019-08-15] MEDS: SOLU-Medrol 125 MG VIAL IVP SCH ×3 (06:19→22:03)
[2019-08-15] MEDS: NS 1000 ML 1,000 ML IV SCH ×2 (06:19→22:13)
[2019-08-15] MEDS: MUCOMYST 20% 200 MG/ML NEB SCH ×4 (06:33→17:44)
[2019-08-15] MEDS: XOPENEX 1.25 MG/3 ML NEBULE NEB SCH ×4 (06:34→17:45)
[2019-08-15] MEDS: ROBITUSSIN DM PO SCH ×4 (08:08→20:55)
[2019-08-15 08:45] LABS: CHOL/HDL RATIO 2.8 (0.0-5.0)
[2019-08-15 08:59] LABS: ABG BASE EXCESS 11.6 mmol/L (-2.0-2.0)
[2019-08-15 09:00] LABS: ABG ALLEN TEST POS; ABG HCO3 38.3 mmol/L (22-26)
[2019-08-15] MEDS: PULMICORT NEB TX 0.5 MG NEB SCH ×2 (09:50→21:33)
[2019-08-15] MEDS: LOPRESSOR TAB 25 MG PO SCH ×2 (09:57→20:54)
[2019-08-15] MEDS: PROTONIX INJ 40 MG VIAL IVP SCH ×2 (09:57→20:52)
[2019-08-15] MEDS: ZESTRIL TAB 10 MG PO SCH ×2 (09:57→21:00)
[2019-08-15] MEDS: LASIX IVP SCH (09:57)
[2019-08-15] MEDS: SYNTHROID 100 mcg TAB PO SCH (09:57)
[2019-08-15] MEDS: LEVAQUIN PREMIX IV 500 MG 500 MG/100 ML BAG IV SCH (09:58)
[2019-08-15] MEDS: VISTARIL PO SCH ×2 (09:58→20:54)
[2019-08-15] MEDS: NICOTINE PATCH TD SCH (09:58)
[2019-08-15] MEDS ORDERED: CARDIZEM INJ 50 MG VIAL IVP ONE ×2 (18:50→19:16)
[2019-08-15] MEDS ORDERED: CARDIZEM INJ 125 MG VIAL ONE (18:53)
[2019-08-15] MEDS ORDERED: NS 100 ML IV 100 ML IV ONE (18:53)
[2019-08-15] MEDS: CARDIZEM INJ 125 MG VIAL 125 MG in NS 100 ML IV 100 ML IV PRN (19:00)
[2019-08-15] MEDS: FLOMAX PO SCH (20:53)
[2019-08-15] MEDS: SINGULAIR TAB 10 MG PO SCH (20:53)
[2019-08-15] MEDS: LOVENOX INJ 40 MG SYR SC SCH (20:54)
[2019-08-16] MEDS: NORCO 10/325 TAB PO SCH ×6 (04:58→20:14)
[2019-08-16 05:26] LABS: BASOPHILS % (AUTO) 0.1 % (0.2-1.0); HEMATOCRIT 39.2 % (42.0-54.0); HEMOGLOBIN 13.2 g/dL (13.5-18.0); LYMPHOCYTES # (AUTO) 0.2 X10^3/uL (1.3-2.9); LYMPHOCYTES % (AUTO) 2.4 % (21.0-51.0); MEAN CORPUSCULAR HGB CONC 33.6 g/dL (33.0-35.0); MEAN CORPUSCULAR VOLUME 89.2 fL (80.0-100.0); MEAN PLATELET VOLUME 7.6 fL (7.4-11.0); MONOCYTES # (AUTO) 0.4 x10^3/uL (0.3-0.8); MONOCYTES % (AUTO) 3.8 % (0.0-13.0); NEUTROPHILS # (AUTO) 9.1 x10^3/uL (2.2-4.8); NEUTROPHILS % (AUTO) 93.7 % (42.0-75.0); PLATELET COUNT 141 X10^3/uL (150.0-450.0); RED CELL DISTRIBUTION WIDTH 15.5 % (11.6-16.5); WHITE BLOOD COUNT 9.7 X10^3/uL (3.6-10.0)
[2019-08-16] MEDS: ZOSYN VIAL 3.375 GRAMS 3.375 G in NS 100 ML IV + SPIKE MINIBAG* 100 ML IV SCH ×3 (05:27→21:45)
[2019-08-16] MEDS: SOLU-Medrol 125 MG VIAL IVP SCH ×3 (05:27→21:02)
[2019-08-16 05:36] LABS: ALANINE AMINOTRANSFERASE 24 Units/L (12-78); ALBUMIN 2.6 g/dL (3.4-5.0); ALKALINE PHOSPHATASE 47 Units/L (46-116); ASPARTATE AMINO TRANSFERASE 14 Units/L (15-37); BLOOD UREA NITROGEN 28 mg/dL (7-18); CALCIUM 8.2 mg/dL (8.5-10.1); CARBON DIOXIDE 39.1 mmol/L (21-32); CHLORIDE 99 mmol/L (98-107); COR CA(FOR HYPOALB) 9.3 mg/dL (8.5-10.1); COR NA(FOR HYPERGLY) 141 mmol/L (136-145); CREATININE 1.09 mg/dL (0.70-1.30); SODIUM 140 mmol/L (136-145); TOTAL PROTEIN 5.7 g/dL (6.4-8.2); eGFR NON BLACK RACES > 60 (>60)
[2019-08-16] MEDS: MUCOMYST 20% 200 MG/ML NEB SCH ×3 (05:42→12:05)
[2019-08-16] MEDS: XOPENEX 1.25 MG/3 ML NEBULE NEB SCH ×2 (05:42)
[2019-08-16] MEDS ORDERED: K-DUR TAB 20 MEQ PO PRN (05:55)
[2019-08-16] MEDS ORDERED: MICRO K EXTEN CAP 10 MEQ PO PRN (05:55)
[2019-08-16] MEDS ORDERED: POTASSIUM CHL 60 MEQ/NS 0.45% 500 ML IV PRN (05:55)
[2019-08-16] MEDS ORDERED: POTASSIUM CHLORIDE LIQ 20 MEQ UDC PO PRN (05:55)
[2019-08-16] MEDS ORDERED: KLOR-CON PO PRN (05:55)
[2019-08-16] MEDS ORDERED: POTASSIUM CHL 40 MEQ/NS 0.45% 500 ML IV PRN (05:55)
[2019-08-16] MEDS ORDERED: K-RIDER 10 MEQ/NS 100 ML 10 MEQ/100 ML BAG IV PRN (05:55)
[2019-08-16 05:56] LABS: BAND NEUTROPHILS % 2 % (0-10); PLATELET MORPHOLOGY COMMENT NORMAL (NORMAL)
[2019-08-16 06:10] LABS: ABG BASE EXCESS 15.4 mmol/L (-2.0-2.0)
[2019-08-16 06:12] LABS: ABG ALLEN TEST POS; ABG HCO3 39.4 mmol/L (22-26)
[2019-08-16 06:21] LABS: FRACTIONATED INSPIRED OXYGEN 32
[2019-08-16] MEDS: CARDIZEM INJ 125 MG VIAL 125 MG in NS 100 ML IV 100 ML IV PRN (08:20)
[2019-08-16] MEDS ORDERED: LOPRESSOR INJ 5 MG AMP IVP ONE ×2 (08:34→23:23)
[2019-08-16] MEDS ORDERED: LANOXIN INJ ONE (08:38)
[2019-08-16] MEDS ORDERED: LOPRESSOR INJ 5 MG AMP ONE (08:39)
[2019-08-16] MEDS: LANOXIN INJ IVP SCH ×3 (08:40→23:48)
[2019-08-16] MEDS: PULMICORT NEB TX 0.5 MG NEB SCH ×2 (08:56→20:30)
[2019-08-16] MEDS: PROTONIX INJ 40 MG VIAL IVP SCH ×2 (09:47→20:17)
[2019-08-16] MEDS: VISTARIL PO SCH ×2 (09:47→20:16)
[2019-08-16] MEDS: ELIQUIS PO SCH ×2 (09:48→20:18)
[2019-08-16] MEDS: SYNTHROID 100 mcg TAB PO SCH (09:48)
[2019-08-16] MEDS: LEVAQUIN PREMIX IV 500 MG 500 MG/100 ML BAG IV SCH (09:48)
[2019-08-16] MEDS: LASIX IVP SCH (09:48)
[2019-08-16] MEDS: ROBITUSSIN DM PO SCH ×4 (09:48→20:17)
[2019-08-16] MEDS: NICOTINE PATCH TD SCH (09:49)
[2019-08-16] MEDS: ZESTRIL TAB 10 MG PO SCH (09:52)
[2019-08-16] MEDS: LOPRESSOR TAB 25 MG PO SCH ×4 (09:52→20:17)
[2019-08-16] MEDS ORDERED: CORDARONE TAB 200 MG PO SCH (10:00)
--- NOTE | 2019-08-16 10:45 | RAD ---
HISTORYSOB, TACHYCARDIASTUDYCHEST, 1 VIEWCOMPARISONChest film August 14, 2019.FINDINGSThe trachea is midline. The cardiac silhouette is unremarkable . The lungs are clear without focal infiltrate or effusion. There are chronic changes of fibrosis in the apices. The lungs are also hyperexpanded consistent with COPD.. The bony thorax is unremarkable for acute bone changes. There is suggestion that several ribs are sclerotic compared to older films in 2018 which raises the possibility of sclerotic metastases..IMPRESSIONCOPD and chronic changes of fibrosis in the apices but no acute cardiopulmonary abnormalities. No acute cardiopulmonary disease.Electronically signed by: PERRY VERMA (Aug 16, 2019 10:42:55)
[2019-08-16] MEDS: NS 1000 ML 1,000 ML IV SCH ×2 (10:58→21:45)
[2019-08-16] MEDS: MAGNESIUM SULFATE 1 GRAM/100 mL PREMIX 1 GM/100 ML BAG IV PRN ×2 (13:00→14:10)
[2019-08-16] MEDS ORDERED: NEXTERONE IV 150 MG PREMIX* 150 MG/100 ML BAG IV ONE (15:03)
[2019-08-16] MEDS ORDERED: NEXTERONE IV 360 MG PREMIX* 360 MG/200 ML BAG IV PRN (15:06)
[2019-08-16] MEDS: XOPENEX 1.25 MG/3 ML NEBULE NEB PRN (16:25)
[2019-08-16 18:14] LABS: CREATINE KINASE MB 1.8 ng/mL (0-4.0); TROPONIN I 0.07 ng/mL (0-1.5)
[2019-08-16] MEDS: CARDIZEM TAB 30 MG PLAIN PO SCH (20:15)
[2019-08-16] MEDS: SINGULAIR TAB 10 MG PO SCH (20:16)
[2019-08-16] MEDS: FLOMAX PO SCH (20:18)
[2019-08-16] MEDS: MERREM VIAL 500 MG in NS 100 ML IV + SPIKE MINIBAG* 100 ML IV SCH (21:01)
[2019-08-16] MEDS: NEXTERONE IV 360 MG PREMIX* 360 MG/200 ML BAG IV PRN (22:03)
[2019-08-17] MEDS: NORCO 10/325 TAB PO SCH ×6 (00:10→20:45)
[2019-08-17 00:14] LABS: CKMB % 8.1 % (<4); CREATINE KINASE MB 1.7 ng/mL (0-4.0); TROPONIN I 0.06 ng/mL (0-1.5)
[2019-08-17] MEDS: MERREM VIAL 500 MG in NS 100 ML IV + SPIKE MINIBAG* 100 ML IV SCH ×3 (04:59→21:09)
[2019-08-17 05:21] LABS: BASOPHILS % (AUTO) 0 % (0.2-1.0); HEMATOCRIT 39.6 % (42.0-54.0); HEMOGLOBIN 13.1 g/dL (13.5-18.0); LYMPHOCYTES # (AUTO) 0.2 X10^3/uL (1.3-2.9); LYMPHOCYTES % (AUTO) 1.5 % (21.0-51.0); MEAN CORPUSCULAR HEMOGLOBIN 29.5 pg (27.0-34.0); MEAN CORPUSCULAR HGB CONC 33.2 g/dL (33.0-35.0); MEAN PLATELET VOLUME 7.2 fL (7.4-11.0); MONOCYTES # (AUTO) 0.8 x10^3/uL (0.3-0.8); MONOCYTES % (AUTO) 6.4 % (0.0-13.0); NEUTROPHILS # (AUTO) 11.3 x10^3/uL (2.2-4.8); NEUTROPHILS % (AUTO) 92.1 % (42.0-75.0); PLATELET COUNT 161 X10^3/uL (150.0-450.0); RED BLOOD COUNT 4.45 X10^6/uL (4.7-6.0); RED CELL DISTRIBUTION WIDTH 15.5 % (11.6-16.5); WHITE BLOOD COUNT 12.3 X10^3/uL (3.6-10.0)
[2019-08-17 05:40] LABS: PLATELET MORPHOLOGY COMMENT NORMAL (NORMAL)
[2019-08-17 05:44] LABS: ALANINE AMINOTRANSFERASE 42 Units/L (12-78); ALBUMIN 2.7 g/dL (3.4-5.0); ALKALINE PHOSPHATASE 46 Units/L (46-116); ASPARTATE AMINO TRANSFERASE 21 Units/L (15-37); BLOOD UREA NITROGEN 27 mg/dL (7-18); CALCIUM 7.9 mg/dL (8.5-10.1); CARBON DIOXIDE 39.4 mmol/L (21-32); CHLORIDE 99 mmol/L (98-107); COR CA(FOR HYPOALB) 8.9 mg/dL (8.5-10.1); COR NA(FOR HYPERGLY) 141 mmol/L (136-145); CREATININE 0.89 mg/dL (0.70-1.30); SODIUM 140 mmol/L (136-145); TOTAL PROTEIN 5.6 g/dL (6.4-8.2); eGFR NON BLACK RACES > 60 (>60)
[2019-08-17 05:45] LABS: CKMB % 6.3 % (<4); CREATINE KINASE MB 1.5 ng/mL (0-4.0); DIGOXIN 0.62 ng/mL (0.9-2); TROPONIN I 0.06 ng/mL (0-1.5)
[2019-08-17] MEDS: CARDIZEM TAB 30 MG PLAIN PO SCH ×3 (06:02→21:08)
[2019-08-17] MEDS: ZOSYN VIAL 3.375 GRAMS 3.375 G in NS 100 ML IV + SPIKE MINIBAG* 100 ML IV SCH ×3 (06:03→22:20)
[2019-08-17] MEDS: LANOXIN INJ IVP SCH (06:20)
[2019-08-17] MEDS ORDERED: CORDARONE TAB 200 MG PO SCH (09:00)
[2019-08-17] MEDS: VISTARIL PO SCH ×2 (09:06→21:08)
[2019-08-17] MEDS: LOPRESSOR TAB 25 MG PO SCH ×2 (09:07→21:07)
[2019-08-17] MEDS: SYNTHROID 100 mcg TAB PO SCH (09:07)
[2019-08-17] MEDS: ROBITUSSIN DM PO SCH ×4 (09:08→21:07)
[2019-08-17] MEDS: ELIQUIS PO SCH ×2 (09:08→21:07)
[2019-08-17] MEDS: NICOTINE PATCH TD SCH (09:08)
[2019-08-17] MEDS: PROTONIX INJ 40 MG VIAL IVP SCH ×2 (09:09→21:07)
[2019-08-17] MEDS: LASIX IVP SCH (09:09)
[2019-08-17] MEDS: PULMICORT NEB TX 0.5 MG NEB SCH ×2 (09:25→20:00)
[2019-08-17] MEDS: XOPENEX 1.25 MG/3 ML NEBULE NEB PRN ×2 (11:50→20:00)
[2019-08-17 12:28] LABS: ABG BASE EXCESS 15.3 mmol/L (-2.0-2.0)
[2019-08-17 12:29] LABS: ABG ALLEN TEST POS; ABG HCO3 42.8 mmol/L (22-26)
[2019-08-17] MEDS: NEXTERONE IV 360 MG PREMIX* 360 MG/200 ML BAG IV PRN (12:55)
[2019-08-17] MEDS: NS 1000 ML 1,000 ML IV SCH (15:17)
[2019-08-17] MEDS: FLOMAX PO SCH (21:07)
[2019-08-17] MEDS: SINGULAIR TAB 10 MG PO SCH (21:08)
[2019-08-18] MEDS: NORCO 10/325 TAB PO SCH ×7 (03:36→20:32)
[2019-08-18] MEDS: CARDIZEM TAB 30 MG PLAIN PO SCH ×3 (05:25→22:15)
[2019-08-18] MEDS: MERREM VIAL 500 MG in NS 100 ML IV + SPIKE MINIBAG* 100 ML IV SCH ×3 (05:25→22:15)
[2019-08-18] MEDS: ZOSYN VIAL 3.375 GRAMS 3.375 G in NS 100 ML IV + SPIKE MINIBAG* 100 ML IV SCH (06:15)
[2019-08-18 06:18] LABS: BASOPHILS % (AUTO) 0.1 % (0.2-1.0); EOSINOPHILS % (AUTO) 0.1 % (0.9-2.9); HEMATOCRIT 36.7 % (42.0-54.0); HEMOGLOBIN 12.4 g/dL (13.5-18.0); LYMPHOCYTES # (AUTO) 0.4 X10^3/uL (1.3-2.9); LYMPHOCYTES % (AUTO) 3.9 % (21.0-51.0); MEAN CORPUSCULAR HEMOGLOBIN 30.1 pg (27.0-34.0); MEAN CORPUSCULAR HGB CONC 33.8 g/dL (33.0-35.0); MEAN PLATELET VOLUME 7.6 fL (7.4-11.0); MONOCYTES # (AUTO) 0.8 x10^3/uL (0.3-0.8); MONOCYTES % (AUTO) 8.9 % (0.0-13.0); NEUTROPHILS # (AUTO) 8.2 x10^3/uL (2.2-4.8); PLATELET COUNT 151 X10^3/uL (150.0-450.0); RED BLOOD COUNT 4.12 X10^6/uL (4.7-6.0); RED CELL DISTRIBUTION WIDTH 15.5 % (11.6-16.5); WHITE BLOOD COUNT 9.5 X10^3/uL (3.6-10.0)
[2019-08-18 06:51] LABS: ALANINE AMINOTRANSFERASE 28 Units/L (12-78); ALBUMIN 2.2 g/dL (3.4-5.0); ALKALINE PHOSPHATASE 42 Units/L (46-116); ASPARTATE AMINO TRANSFERASE 13 Units/L (15-37); BLOOD UREA NITROGEN 22 mg/dL (7-18); CALCIUM 7.6 mg/dL (8.5-10.1); CARBON DIOXIDE 37.9 mmol/L (21-32); CHLORIDE 101 mmol/L (98-107); SODIUM 140 mmol/L (136-145); TOTAL PROTEIN 4.8 g/dL (6.4-8.2); eGFR NON BLACK RACES > 60 (>60)
[2019-08-18] MEDS: NS 1000 ML 1,000 ML IV SCH (07:19)
[2019-08-18] MEDS: VISTARIL PO SCH ×2 (08:57→20:33)
[2019-08-18] MEDS: ELIQUIS PO SCH ×2 (08:57→20:32)
[2019-08-18] MEDS: LASIX IVP SCH (08:57)
[2019-08-18] MEDS: LOPRESSOR TAB 25 MG PO SCH ×2 (08:57→20:33)
[2019-08-18] MEDS: SYNTHROID 100 mcg TAB PO SCH (08:57)
[2019-08-18] MEDS: ROBITUSSIN DM PO SCH ×4 (08:58→20:33)
[2019-08-18] MEDS: PROTONIX INJ 40 MG VIAL IVP SCH ×2 (08:58→20:33)
[2019-08-18] MEDS: NICOTINE PATCH TD SCH (08:58)
[2019-08-18] MEDS ORDERED: MICRO K EXTEN CAP 10 MEQ PO PRN (09:00)
[2019-08-18] MEDS: PULMICORT NEB TX 0.5 MG NEB SCH ×2 (09:11→20:00)
--- NOTE | 2019-08-18 10:29 | PCM.PROG ---
Progress Note Progress Note for Day of Date of Exam: 08/18/19 Subjective Subjective: Patient seen at bedside, no acute overnight events. Patient is awaiting on being transferred to [facility] in [facility] due to cardiology evaluation for new onset afib with RVR. Patient not in distress, currently on oxygen. He is currently in NSR with HR in 60s. He is also receiving antibiotics for E.coli and Klebsiella pna. He was started on Merrem yesterday, will DC Zosyn. CXR showed COPD with chronic fibrotic changes. Continue cardiac medications. Awaiting on bed to be transferred to [facility]. Family at bedside updated. Past Medical Family Social History Past Med/Fam/Surg Hx: No changes since H&P Allergies: Allergies No Known Drug Allergies Allergy (Verified 12/24/16 15:32) Review of Systems ROS: No change since H&P Vital Signs and I&O's Vital Signs: Temperature 97.8 F Pulse Rate [Apical] 79 Pulse Rate 68 Respiratory Rate 22 Blood Pressure [Right Arm] 164/72 Blood Pressure [Left Arm] 137/62 Blood Pressure 155/67 O2 Sat by Pulse Oximetry 98 Intake and Output: Intake & Output 08/15/19 08/16/19 08/17/19 08/18/19 23:59 23:59 23:59 23:59 Intake Total 3336 / 3336 5251.5 / 5251.5 2986 / 2986 956 / 956 Output Total 3225 / 3225 3325 / 3325 4250 / 4250 500 / 500 Balance 111 / 111 1926.5 / 1926.5 -1264 / -1264 456 / 456 Physical Exam Oriented: Normal Eyes: Normal Ear: Normal Nose: Normal Throat: Normal Respiratory: Diminished Cardiovascular: Normal Auscultation: Bowel Sounds: Normal Tenderness: Normal Skin: Decreased Turgur Musculoskeletal: Back:Thoracic and Back:Lumbar Psychiatric: Anxiety Mood Description: Calm Affect: Normal Speech Pattern: Clear and Appropriate Laboratory and Diagnostics Result Diagrams: 08/18/19 04:12 08/18/19 04:12 Labs: 08/13/19 12:19 Sputum - Expectorated Sputum Sputum Culture - Final Escherichia Coli Klebsiella Pneumoniae 08/13/19 12:19 Sputum - Expectorated Sputum - Final 08/13/19 12:35 Blood Blood Culture - Preliminary 08/13/19 12:18 Blood Blood Culture - Preliminary Laboratory WBC 9.5 X10^3/uL (3.6-10.0) 08/18/19 04:12 RBC 4.12 X10^6/uL (4.7-6.0) L 08/18/19 04:12 Hgb 12.4 g/dL (13.5-18.0) L 08/18/19 04:12 Hct 36.7 % (42.0-54.0) L 08/18/19 04:12 MCV 89.0 fL (80.0-100.0) 08/18/19 04:12 MCH 30.1 pg (27.0-34.0) 08/18/19 04:12 MCHC 33.8 g/dL (33.0-35.0) 08/18/19 04:12 RDW 15.5 % (11.6-16.5) 08/18/19 04:12 Plt Count 151 X10^3/uL (150.0-450.0) 08/18/19 04:12 Plt Count Comment Adequate (ADEQUATE) 08/17/19 04:46 MPV 7.6 fL (7.4-11.0) 08/18/19 04:12 Neut % (Auto) 87.0 % (42.0-75.0) H 08/18/19 04:12 Lymph % (Auto) 3.9 % (21.0-51.0) L 08/18/19 04:12 Spink % (Auto) 8.9 % (0.0-13.0) 08/18/19 04:12 Eos % (Auto) 0.1 % (0.9-2.9) L 08/18/19 04:12 Baso % (Auto) 0.1 % (0.2-1.0) L 08/18/19 04:12 Neut # (Auto) 8.2 x10^3/uL (2.2-4.8) H 08/18/19 04:12 Lymph # (Auto) 0.4 X10^3/uL (1.3-2.9) L 08/18/19 04:12 Spink # (Auto) 0.8 x10^3/uL (0.3-0.8) 08/18/19 04:12 Eos # (Auto) 0.0 x10^3/uL (0.0-0.2) 08/18/19 04:12 Baso # (Auto) 0.0 X10^3/uL (0.0-0.1) 08/18/19 04:12 Absolute Nucleated RBC 0.2 /100WBC 08/18/19 04:12 Total Counted 100 08/17/19 04:46 Neutrophils % (Manual) 92 % (39-76) H 08/17/19 04:46 Band Neutrophils % 2 % (0-10) 08/16/19 04:03 Lymphocytes % (Manual) 4 % (13-43) L 08/17/19 04:46 Monocytes % (Manual) 4 % (4-9) 08/17/19 04:46 Plt Morphology Comment Normal (NORMAL) 08/17/19 04:46 RBC Morphology Normal (NORMAL) 08/17/19 04:46 Sample Site Rrad 08/17/19 12:15 ABG pH 7.420 (7.35-7.45) 08/17/19 12:15 ABG pCO2 66.0 mmHg (35.0-45.0) H* 08/17/19 12:15 ABG pO2 84.0 mmHg (80.0-100.0) 08/17/19 12:15 ABG HCO3 42.8 mmol/L (22-26) H* 08/17/19 12:15 ABG O2 Saturation 96.0 % (90-100) 08/17/19 12:15 ABG Base Excess 15.3 mmol/L (-2.0-2.0) H 08/17/19 12:15 Ed Test Pos 08/17/19 12:15 A-a Gradient 62.0 mmHg 08/17/19 12:15 FiO2 32.0 08/17/19 12:15 Blood Gas Comments Mignon well -sd 08/17/19 12:15 Sodium 140 mmol/L (136-145) 08/18/19 04:12 Corrected Sodium TNP 08/18/19 04:12 Potassium 3.7 mmol/L (3.5-5.1) 08/18/19 04:12 Chloride 101 mmol/L (98-107) 08/18/19 04:12 Carbon Dioxide 37.9 mmol/L (21-32) H 08/18/19 04:12 BUN 22 mg/dL (7-18) H 08/18/19 04:12 Creatinine 0.90 mg/dL (0.70-1.30) 08/18/19 04:12 Est GFR (MDRD) Af Amer > 60 (>60) 08/18/19 04:12 Est GFR (MDRD) Non-Af > 60 (>60) 08/18/19 04:12 Glucose 84 mg/dL (65-99) 08/18/19 04:12 Calcium 7.6 mg/dL (8.5-10.1) L 08/18/19 04:12 Corrected Calcium 9.0 mg/dL (8.5-10.1) 08/18/19 04:12 Magnesium 2.0 mg/dL (1.7-2.9) 08/18/19 04:12 Total Bilirubin 0.20 mg/dL (0.2-1.0) 08/18/19 04:12 AST 13 Units/L (15-37) L 08/18/19 04:12 ALT 28 Units/L (12-78) 08/18/19 04:12 Alkaline Phosphatase 42 Units/L (46-116) L 08/18/19 04:12 Creatine Kinase 24 Units/L (39-308) L 08/17/19 04:46 CK-MB (CK-2) 1.5 ng/mL (0-4.0) 08/17/19 04:46 CK/CKMB % Calc 6.3 % (<4) 08/17/19 04:46 Troponin I 0.06 ng/mL (0-1.5) 08/17/19 04:46 Total Protein 4.8 g/dL (6.4-8.2) L 08/18/19 04:12 Albumin 2.2 g/dL (3.4-5.0) L 08/18/19 04:12 Globulin 2.6 g/dL (2.5-4.5) 08/18/19 04:12 Albumin/Globulin Ratio 0.8 Ratio (1.1-2.1) L 08/18/19 04:12 Triglycerides 90 mg/dL (0-150) 08/15/19 04:15 Cholesterol 148 mg/dL (0-200) 08/15/19 04:15 LDL Cholesterol, Calc 78 mg/dL (0-100) 08/15/19 04:15 HDL Cholesterol 52 mg/dL (40-60) 08/15/19 04:15 Cholesterol/HDL Ratio 2.8 (0.0-5.0) 08/15/19 04:15 Specimen Type Catherized urine 08/14/19 19:50 Urine Color Pale yellow (YELLOW) 08/14/19 19:50 Urine Appearance Clear (CLEAR) 08/14/19 19:50 Urine pH 6.0 (5.0 - 8.0) 08/14/19 19:50 Ur Specific [place] 1.010 (1.000-1.030) 08/14/19 19:50 Urine Protein 2+ (NEGATIVE) 08/14/19 19:50 Urine Glucose (UA) Negative (NEGATIVE) 08/14/19 19:50 Urine Ketones Negative (NEGATIVE) 08/14/19 19:50 Urine Occult Blood 1+ (NEGATIVE) 08/14/19 19:50 Urine Nitrite Negative (NEGATIVE) 08/14/19 19:50 Urine Bilirubin Negative (NEGATIVE) 08/14/19 19:50 Urine Urobilinogen Normal (NORMAL) 08/14/19 19:50 Ur Leukocyte Esterase Negative (NEGATIVE) 08/14/19 19:50 Urine RBC 0-2 /HPF (0-3) 08/14/19 19:50 Urine WBC None seen /HPF (0-5) 08/14/19 19:50 Ur Squamous Epith Cells Rare /HPF (NEGATIVE) 08/14/19 19:50 Amorphous Sediment Trace /HPF (NEGATIVE) 08/13/19 15:12 Urine Bacteria Negative /HPF (NEGATIVE) 08/14/19 19:50 Hyaline Casts Few /LPF (NEGATIVE) 08/13/19 15:12 Urine Mucus Moderate /HPF (NEGATIVE) 08/13/19 15:12 Ur Culture Indicated? No/not indicated 08/14/19 19:50 Digoxin 0.62 ng/mL (0.9-2) L 08/17/19 04:46 Plan (1) Acute respiratory distress: Status: Acute (2) COPD with acute bronchitis: Status: Acute (3) History of bladder cancer: Status: Chronic (4) History of throat cancer: Status: Chronic (5) Hypertension: Status: Chronic Qualifiers: Hypertension type: essential hypertension Qualified Code(s): I10 - Essential (primary) hypertension (6) Hyperthyroidism: Status: Chronic
[2019-08-18] MEDS ORDERED: NS 1000 ML 1,000 ML ONE (15:25)
[2019-08-18] MEDS: CORDARONE TAB 200 MG PO SCH (19:14)
[2019-08-18] MEDS: XOPENEX 1.25 MG/3 ML NEBULE NEB PRN (20:00)
[2019-08-18] MEDS: FLOMAX PO SCH (20:32)
[2019-08-18] MEDS: SINGULAIR TAB 10 MG PO SCH (20:33)
[2019-08-19] MEDS: NORCO 10/325 TAB PO SCH ×5 (05:15→17:10)
[2019-08-19] MEDS: MERREM VIAL 500 MG in NS 100 ML IV + SPIKE MINIBAG* 100 ML IV SCH ×2 (05:56→14:06)
[2019-08-19] MEDS: CARDIZEM TAB 30 MG PLAIN PO SCH ×2 (05:56→14:05)
[2019-08-19 06:19] LABS: BASOPHILS % (AUTO) 0.1 % (0.2-1.0); EOSINOPHILS # (AUTO) 0.1 x10^3/uL (0.0-0.2); EOSINOPHILS % (AUTO) 1.6 % (0.9-2.9); HEMATOCRIT 39.6 % (42.0-54.0); HEMOGLOBIN 13.3 g/dL (13.5-18.0); LYMPHOCYTES # (AUTO) 0.4 X10^3/uL (1.3-2.9); LYMPHOCYTES % (AUTO) 5.3 % (21.0-51.0); MEAN CORPUSCULAR HEMOGLOBIN 29.8 pg (27.0-34.0); MEAN CORPUSCULAR HGB CONC 33.5 g/dL (33.0-35.0); MEAN CORPUSCULAR VOLUME 88.8 fL (80.0-100.0); MEAN PLATELET VOLUME 7.1 fL (7.4-11.0); MONOCYTES # (AUTO) 0.7 x10^3/uL (0.3-0.8); NEUTROPHILS # (AUTO) 6.4 x10^3/uL (2.2-4.8); PLATELET COUNT 161 X10^3/uL (150.0-450.0); RED BLOOD COUNT 4.46 X10^6/uL (4.7-6.0); RED CELL DISTRIBUTION WIDTH 15.5 % (11.6-16.5); WHITE BLOOD COUNT 7.6 X10^3/uL (3.6-10.0)
[2019-08-19 06:27] LABS: ALANINE AMINOTRANSFERASE 25 Units/L (12-78); ALBUMIN 2.2 g/dL (3.4-5.0); ALKALINE PHOSPHATASE 43 Units/L (46-116); ASPARTATE AMINO TRANSFERASE 15 Units/L (15-37); BLOOD UREA NITROGEN 17 mg/dL (7-18); CALCIUM 7.9 mg/dL (8.5-10.1); CHLORIDE 101 mmol/L (98-107); COR CA(FOR HYPOALB) 9.3 mg/dL (8.5-10.1); CREATININE 0.68 mg/dL (0.70-1.30); SODIUM 141 mmol/L (136-145); eGFR NON BLACK RACES > 60 (>60)
[2019-08-19 06:31] LABS: CARBON DIOXIDE 42.2 mmol/L (21-32)
[2019-08-19] MEDS: PULMICORT NEB TX 0.5 MG NEB SCH (09:22)
[2019-08-19] MEDS: LASIX IVP SCH (09:33)
[2019-08-19] MEDS: PROTONIX INJ 40 MG VIAL IVP SCH (09:33)
[2019-08-19] MEDS: SYNTHROID 100 mcg TAB PO SCH (09:34)
[2019-08-19] MEDS: VISTARIL PO SCH (09:34)
[2019-08-19] MEDS: ZESTRIL TAB 10 MG PO SCH (09:34)
[2019-08-19] MEDS: LOPRESSOR TAB 25 MG PO SCH (09:34)
[2019-08-19] MEDS: NICOTINE PATCH TD SCH (09:35)
[2019-08-19] MEDS: ELIQUIS PO SCH (09:35)
[2019-08-19] MEDS: CORDARONE TAB 200 MG PO SCH (09:35)
[2019-08-19] MEDS: ROBITUSSIN DM PO SCH ×3 (09:36→17:10)
--- NOTE | 2019-08-19 11:22 | PCM.PROG ---
Progress Note Progress Note for Day of Date of Exam: 08/19/19 Subjective Subjective: Patient seen at bedside, no acute overnight events. Patient has been in NSR since yesterday. Patient is awaiting on being transferred to [facility] in [facility] due to cardiology evaluation for new onset afib. Patient resting on exam, no distress noted. He is currently in NSR with HR in 60-80s. He is also receiving antibiotics for E.coli and Klebsiella pna. Last CXR showed COPD with chronic fibrotic changes. Continue cardiac medications. Will continue Merrem. Resume lisinopril. Family at bedside updated. Past Medical Family Social History Past Med/Fam/Surg Hx: No changes since H&P Allergies: Allergies No Known Drug Allergies Allergy (Verified 12/24/16 15:32) Review of Systems ROS: No change since H&P Vital Signs and I&O's Vital Signs: Temperature 98.1 F Pulse Rate [Apical] 79 Pulse Rate 67 Respiratory Rate 18 Blood Pressure [Right Arm] 164/72 Blood Pressure [Left Arm] 137/62 Blood Pressure 163/74 O2 Sat by Pulse Oximetry 94 Intake and Output: Intake & Output 08/16/19 08/17/19 08/18/19 08/20/19 23:59 23:59 23:59 00:59 Intake Total 5251.5 / 5251.5 2986 / 2986 2325 / 2325 100 / 100 Output Total 3325 / 3325 4250 / 4250 4300 / 4300 1100 / 1100 Balance 1926.5 / 1926.5 -1264 / -1264 -1974 / -1974 -1000 / -1000 Physical Exam Oriented: Normal Eyes: Normal Ear: Normal Nose: Normal Throat: Normal Respiratory: Diminished and Wheezes Cardiovascular: Normal Auscultation: Bowel Sounds: Normal Tenderness: Normal Skin: Decreased Turgur Musculoskeletal: Back:Thoracic and Back:Lumbar Psychiatric: Normal Mood Description: Calm Affect: Normal Speech Pattern: Clear and Appropriate Laboratory and Diagnostics Result Diagrams: 08/19/19 04:34 08/19/19 04:34 Labs: 08/13/19 12:35 Blood Blood Culture - Final 08/13/19 12:18 Blood Blood Culture - Final 08/13/19 12:19 Sputum - Expectorated Sputum Sputum Culture - Final Escherichia Coli Klebsiella Pneumoniae 08/13/19 12:19 Sputum - Expectorated Sputum - Final Laboratory WBC 7.6 X10^3/uL (3.6-10.0) 08/19/19 04:34 RBC 4.46 X10^6/uL (4.7-6.0) L 08/19/19 04:34 Hgb 13.3 g/dL (13.5-18.0) L 08/19/19 04:34 Hct 39.6 % (42.0-54.0) L 08/19/19 04:34 MCV 88.8 fL (80.0-100.0) 08/19/19 04:34 MCH 29.8 pg (27.0-34.0) 08/19/19 04:34 MCHC 33.5 g/dL (33.0-35.0) 08/19/19 04:34 RDW 15.5 % (11.6-16.5) 08/19/19 04:34 Plt Count 161 X10^3/uL (150.0-450.0) 08/19/19 04:34 Plt Count Comment Adequate (ADEQUATE) 08/17/19 04:46 MPV 7.1 fL (7.4-11.0) L 08/19/19 04:34 Neut % (Auto) 84.0 % (42.0-75.0) H 08/19/19 04:34 Lymph % (Auto) 5.3 % (21.0-51.0) L 08/19/19 04:34 [place] % (Auto) 9.0 % (0.0-13.0) 08/19/19 04:34 Eos % (Auto) 1.6 % (0.9-2.9) 08/19/19 04:34 Baso % (Auto) 0.1 % (0.2-1.0) L 08/19/19 04:34 Neut # (Auto) 6.4 x10^3/uL (2.2-4.8) H 08/19/19 04:34 Lymph # (Auto) 0.4 X10^3/uL (1.3-2.9) L 08/19/19 04:34 [place] # (Auto) 0.7 x10^3/uL (0.3-0.8) 08/19/19 04:34 Eos # (Auto) 0.1 x10^3/uL (0.0-0.2) 08/19/19 04:34 Baso # (Auto) 0.0 X10^3/uL (0.0-0.1) 08/19/19 04:34 Absolute Nucleated RBC 0.1 /100WBC 08/19/19 04:34 Total Counted 100 08/17/19 04:46 Neutrophils % (Manual) 92 % (39-76) H 08/17/19 04:46 Band Neutrophils % 2 % (0-10) 08/16/19 04:03 Lymphocytes % (Manual) 4 % (13-43) L 08/17/19 04:46 Monocytes % (Manual) 4 % (4-9) 08/17/19 04:46 Plt Morphology Comment Normal (NORMAL) 08/17/19 04:46 RBC Morphology Normal (NORMAL) 08/17/19 04:46 Sample Site Rrad 08/17/19 12:15 ABG pH 7.420 (7.35-7.45) 08/17/19 12:15 ABG pCO2 66.0 mmHg (35.0-45.0) H* 08/17/19 12:15 ABG pO2 84.0 mmHg (80.0-100.0) 08/17/19 12:15 ABG HCO3 42.8 mmol/L (22-26) H* 08/17/19 12:15 ABG O2 Saturation 96.0 % (90-100) 08/17/19 12:15 ABG Base Excess 15.3 mmol/L (-2.0-2.0) H 08/17/19 12:15 Ed Test Pos 08/17/19 12:15 A-a Gradient 62.0 mmHg 08/17/19 12:15 FiO2 32.0 08/17/19 12:15 Blood Gas Comments Mignon well -sd 08/17/19 12:15 Sodium 141 mmol/L (136-145) 08/19/19 04:34 Corrected Sodium TNP 08/19/19 04:34 Potassium 3.7 mmol/L (3.5-5.1) 08/19/19 04:34 Chloride 101 mmol/L (98-107) 08/19/19 04:34 Carbon Dioxide 42.2 mmol/L (21-32) H* 08/19/19 04:34 BUN 17 mg/dL (7-18) 08/19/19 04:34 Creatinine 0.68 mg/dL (0.70-1.30) L 08/19/19 04:34 Est GFR (MDRD) Af Amer > 60 (>60) 08/19/19 04:34 Est GFR (MDRD) Non-Af > 60 (>60) 08/19/19 04:34 Glucose 73 mg/dL (65-99) 08/19/19 04:34 Calcium 7.9 mg/dL (8.5-10.1) L 08/19/19 04:34 Corrected Calcium 9.3 mg/dL (8.5-10.1) 08/19/19 04:34 Magnesium 2.0 mg/dL (1.7-2.9) 08/18/19 04:12 Total Bilirubin 0.30 mg/dL (0.2-1.0) 08/19/19 04:34 AST 15 Units/L (15-37) 08/19/19 04:34 ALT 25 Units/L (12-78) 08/19/19 04:34 Alkaline Phosphatase 43 Units/L (46-116) L 08/19/19 04:34 Creatine Kinase 24 Units/L (39-308) L 08/17/19 04:46 CK-MB (CK-2) 1.5 ng/mL (0-4.0) 08/17/19 04:46 CK/CKMB % Calc 6.3 % (<4) 08/17/19 04:46 Troponin I 0.06 ng/mL (0-1.5) 08/17/19 04:46 Total Protein 5.0 g/dL (6.4-8.2) L 08/19/19 04:34 Albumin 2.2 g/dL (3.4-5.0) L 08/19/19 04:34 Globulin 2.8 g/dL (2.5-4.5) 08/19/19 04:34 Albumin/Globulin Ratio 0.8 Ratio (1.1-2.1) L 08/19/19 04:34 Triglycerides 90 mg/dL (0-150) 08/15/19 04:15 Cholesterol 148 mg/dL (0-200) 08/15/19 04:15 LDL Cholesterol, Calc 78 mg/dL (0-100) 08/15/19 04:15 HDL Cholesterol 52 mg/dL (40-60) 08/15/19 04:15 Cholesterol/HDL Ratio 2.8 (0.0-5.0) 08/15/19 04:15 Specimen Type Catherized urine 08/14/19 19:50 Urine Color Pale yellow (YELLOW) 08/14/19 19:50 Urine Appearance Clear (CLEAR) 08/14/19 19:50 Urine pH 6.0 (5.0 - 8.0) 08/14/19 19:50 Ur Specific [place] 1.010 (1.000-1.030) 08/14/19 19:50 Urine Protein 2+ (NEGATIVE) 08/14/19 19:50 Urine Glucose (UA) Negative (NEGATIVE) 08/14/19 19:50 Urine Ketones Negative (NEGATIVE) 08/14/19 19:50 Urine Occult Blood 1+ (NEGATIVE) 08/14/19 19:50 Urine Nitrite Negative (NEGATIVE) 08/14/19 19:50 Urine Bilirubin Negative (NEGATIVE) 08/14/19 19:50 Urine Urobilinogen Normal (NORMAL) 08/14/19 19:50 Ur Leukocyte Esterase Negative (NEGATIVE) 08/14/19 19:50 Urine RBC 0-2 /HPF (0-3) 08/14/19 19:50 Urine WBC None seen /HPF (0-5) 08/14/19 19:50 Ur Squamous Epith Cells Rare /HPF (NEGATIVE) 08/14/19 19:50 Amorphous Sediment Trace /HPF (NEGATIVE) 08/13/19 15:12 Urine Bacteria Negative /HPF (NEGATIVE) 08/14/19 19:50 Hyaline Casts Few /LPF (NEGATIVE) 08/13/19 15:12 Urine Mucus Moderate /HPF (NEGATIVE) 08/13/19 15:12 Ur Culture Indicated? No/not indicated 08/14/19 19:50 Digoxin 0.62 ng/mL (0.9-2) L 08/17/19 04:46 Plan (1) Acute respiratory distress: Status: Acute (2) COPD with acute bronchitis: Status: Acute (3) History of bladder cancer: Status: Chronic (4) History of throat cancer: Status: Chronic (5) Hypertension: Status: Chronic Qualifiers: Hypertension type: essential hypertension Qualified Code(s): I10 - Essential (primary) hypertension (6) Hyperthyroidism: Status: Chronic
[2019-08-19 17:58] VITALS: BP 167/87
== END 2019-08-19 17:40 | disposition short-term general hospital (02) | DRG 189 ==
LOC: ICU 11:41
PROVIDERS: ADMIT Internal Medicine; ATTEND Internal Medicine
DX: R94.31 Abnormal electrocardiogram [ECG] [EKG]; R26.89 Other abnormalities of gait and mobility; N40.0 Benign prostatic hyperplasia without lower urinary tract symptoms; Z85.51 Personal history of malignant neoplasm of bladder; J96.21 Acute and chronic respiratory failure with hypoxia; I10 Essential (primary) hypertension; J15.5 Pneumonia due to Escherichia coli; J44.1 Chronic obstructive pulmonary disease with (acute) exacerbation; I49.8 Other specified cardiac arrhythmias; E03.8 Other specified hypothyroidism; Z85.819 Personal history of malignant neoplasm of unspecified site of lip, oral cavity, and pharynx; I48.91 Unspecified atrial fibrillation; J15.0 Pneumonia due to Klebsiella pneumoniae
CPT/HCPCS: 36415; 36600; 71010; 71045; 80053; 80061; 80162; 81001; 82550; 82553; 82803; 83735; 84484; 85025; 87040; 87070; 87077; 87186; 87205; 93005; 94640; 94669; 97162; 97165; A4222; A7030; C9113; J0282; J1160; J1650; J1940; J1956; J2185; J2543; J2930; J3475; J3490; J7030; J7050; J7620; J7626; Q0177

== ENCOUNTER 2019-11-28 14:19 | Inpatient (IN) ==
[2019-11-28 16:05] LABS: CKMB % 9.2 % (<4); CREATINE KINASE MB 3.4 ng/mL (0-4.0); TROPONIN I 0.08 ng/mL (0-1.5)
[2019-11-28] MEDS: DUONEB 0.5 MG/3 MG (3 mL) NEB SCH ×2 (16:05→21:30)
[2019-11-28 16:06] LABS: ABG HCO3 32.5 mmol/L (22-26)
[2019-11-28 17:12] LABS: BASOPHILS % (AUTO) 0.1 % (0.2-1.0); HEMATOCRIT 33.2 % (42.0-54.0); HEMOGLOBIN 10.9 g/dL (13.5-18.0); LYMPHOCYTES # (AUTO) 0.3 X10^3/uL (1.3-2.9); LYMPHOCYTES % (AUTO) 2.3 % (21.0-51.0); MEAN CORPUSCULAR HEMOGLOBIN 29.1 pg (27.0-34.0); MEAN CORPUSCULAR HGB CONC 32.7 g/dL (33.0-35.0); MEAN CORPUSCULAR VOLUME 88.9 fL (80.0-100.0); MEAN PLATELET VOLUME 6.7 fL (7.4-11.0); MONOCYTES # (AUTO) 0.5 x10^3/uL (0.3-0.8); MONOCYTES % (AUTO) 3.6 % (0.0-13.0); NEUTROPHILS # (AUTO) 13.6 x10^3/uL (2.2-4.8); PLATELET COUNT 403 X10^3/uL (150.0-450.0); RED BLOOD COUNT 3.74 X10^6/uL (4.7-6.0); WHITE BLOOD COUNT 14.5 X10^3/uL (3.6-10.0)
[2019-11-28 17:22] LABS: ALBUMIN 2.8 g/dL (3.4-5.0); CALCIUM 9.3 mg/dL (8.5-10.1); CARBON DIOXIDE 30.8 mmol/L (21-32); COR CA(FOR HYPOALB) 10.3 mg/dL (8.5-10.1); CREATININE 2.2 mg/dL (0.70-1.30); TOTAL PROTEIN 7.3 g/dL (6.4-8.2)
[2019-11-28 17:24] LABS: BAND NEUTROPHILS % 5 % (0-10); PLATELET MORPHOLOGY COMMENT NORMAL (NORMAL)
[2019-11-28] MEDS ORDERED: DECADRON TAB PO ONE (17:59)
--- NOTE | 2019-11-28 18:06 | DR.H&P ---
H&P - History & Physical for Day of: H&P Date: 11/28/19 - Chief Complaint Chief Complaint: CHEST PAIN, SOB - History of Present Illness History of Present Illness: PT IS 69 WM DIRECT ADMIT FROM DR CANTRELL OFFICE AFTER PRESENTING WITH CO CHEST PAIN, RADIATES TO LEFT ARM AND LEFT JAW. PT REPORTS EPISODES ON AND OFF X 1 ONE WEEK. PT HAD ABLATION FOR AFIB [address] CARLOS ALBERTO GUZMAN. PT REPORTS HE HAS HAD INCREASED FATIGUE AND BLACK STOOL. PT HAS CHRONIC RESP FAILURE ON CONTINUOUS O2, WITH SAT 70% ON 4 LPER NC. PT ADMITTED FOR ICU FOR R/O AM, ACUTE HYPOXIA, COVID SWAB ORDERED ON ADMISSION. - Past Medical History Past Medical History: Arthritis, COPD, GERD, Hypertension, Hypothyroidism Additional Medical History: THROAT CANCER- IN REMISSION. BLADDER CANCER- FOLLOWED BY DR SANTA - Past Surgical History Surgical History: Other Additional Surgical History: PT HAS PEG TUBE PLACEMENT AND REMOVAL, THROAT CANCER SURGERY. BLADDER CANCER SURGERY - Family History Family Medical History: Cancer - Social History Does patient currently use any type of tobacco product: Yes Have you used tobacco products in the last 12 months: Yes Type of Tobacco Use: Cigarettes Alcohol Use: None Drug Use: None - Medications Home Medications: No Known Drug Allergies Allergy (Verified 12/24/16 15:32) CONTINUE taking the following medications amiodarone 200 mg PO DAILY 11/28/19 [History] apixaban [Eliquis] 5 mg PO BID 11/28/19 [History] furosemide 40 mg PO DAILY 11/28/19 [History] lisinopril 10 mg PO DAILY 11/28/19 [History] pantoprazole 40 mg PO DAILY 11/28/19 [History] simvastatin 10 mg PO HS 11/28/19 [History] - Review of Systems Constitutional: Weakness. denies: Fever Eyes: No Symptoms Reported ENT: No Symptoms Reported Respiratory: Shortness of Breath Cardiovascular: Chest Pain, Edema Gastrointestinal: No Symptoms Reported Genitourinary: No Symptoms Reported Musculoskeletal: Shoulder Pain, Arm Pain Skin: No Symptoms Reported Neurological: Weakness - Physical Exam Vital Signs: Temperature 98.1 F Pulse Rate [Apical] 80 Respiratory Rate 22 Blood Pressure [Right Arm] 164/72 Blood Pressure [Left Arm] 98/57 Blood Pressure 167/87 O2 Sat by Pulse Oximetry 100 Oriented: Normal Eyes: Normal Ear: Normal Nose: Normal Throat: Normal Respiratory: Diminished Throughout Cardiovascular: Irregular, Edema Auscultation: Bowel Sounds: Normal Palpation: Normal Tenderness: Normal Skin: Decreased Turgur Musculoskeletal: Back:Thoracic, Back:Lumbar Psychiatric: Anxiety Affect: Anxious Speech Pattern: Clear, Appropriate - Assessment/Plan (1) Chest pain Status: Acute Plan: ADMIT, SERIAL CE AND EKG. CARDIAC MONITORING, ABG ON ADMISSION. SUPPLMENTAL O2, COVID 19 ON ADMISSION. CBC CMP AND SPUTUM CULTURE. IV ZITHROMAX, CXR ON ADMISSION, VERIFY HOME MEDICATION. OCCULT STOOL, ANEMIA PANEL (2) Acute respiratory disease Status: Acute (3) COPD with acute bronchitis Status: Acute (4) Hypoxia Status: Acute (5) History of bladder cancer Status: Chronic (6) History of throat cancer Status: Chronic (7) Hypertension Qualifiers: Hypertension type: essential hypertension Qualified Code(s): I10 - Essential (primary) hypertension Status: Chronic (8) Hyperthyroidism Status: Chronic - Allergies Allergies/Adverse Reactions: Allergies Allergy/AdvReac Type Severity Reaction Status Date / Time No Known Drug Allergies Allergy Verified 12/24/16 15:32
[2019-11-28] MEDS: PROTONIX INJ 40 MG VIAL IVP SCH (18:16)
[2019-11-28] MEDS: NS 1000 ML 1,000 ML IV SCH (18:16)
[2019-11-28] MEDS: ZITHROMAX INJ 500 MG VIAL 500 MG in NS 250 ML IV 250 ML IV SCH (18:24)
[2019-11-28 18:42] LABS: BILIRUBIN,URINE NEGATIVE (NEGATIVE); BLOOD/HEMOGLOBIN,URINE 1+ (NEGATIVE); GLUCOSE, URINE NEGATIVE (NEGATIVE); KETONES,URINE NEGATIVE (NEGATIVE); LEUKOCYTE ESTERASE ,URINE NEGATIVE (NEGATIVE); NITRITES,URINE NEGATIVE (NEGATIVE); PROTEIN,URINE 1+ (NEGATIVE); UROBILINOGEN,URINE NORMAL (NORMAL)
[2019-11-28 18:54] LABS: APPEARANCE,URINE CLEAR (CLEAR); COLOR,URINE YELLOW (YELLOW)
[2019-11-28 18:55] LABS: BACTERIA,URINE NEGATIVE /HPF (NEGATIVE); RBC,URINE 0-2 /HPF (0-3); SQUAMOUS EPITHELIAL CELL,UR RARE /HPF (NEGATIVE)
[2019-11-28] MEDS: PULMICORT NEB TX 0.5 MG NEB SCH (21:30)
[2019-11-28] MEDS: ROBITUSSIN DM PO SCH (21:40)
[2019-11-28] MEDS: ZOCOR TAB 10 MG PO SCH (21:40)
[2019-11-28] MEDS: ELIQUIS PO SCH (21:40)
[2019-11-28 23:12] LABS: CKMB % 13.9 % (<4); TROPONIN I 0.5 ng/mL (0-1.5)
[2019-11-28 23:13] LABS: CREATINE KINASE MB 5.4 ng/mL (0-4.0)
[2019-11-29] MEDS: DUONEB 0.5 MG/3 MG (3 mL) NEB SCH ×6 (01:07→20:40)
[2019-11-29 03:26] LABS: BASOPHILS % (AUTO) 0.2 % (0.2-1.0); EOSINOPHILS # (AUTO) 0.1 x10^3/uL (0.0-0.2); HEMATOCRIT 27.5 % (42.0-54.0); HEMOGLOBIN 9.1 g/dL (13.5-18.0); LYMPHOCYTES # (AUTO) 0.5 X10^3/uL (1.3-2.9); LYMPHOCYTES % (AUTO) 4.5 % (21.0-51.0); MEAN CORPUSCULAR HEMOGLOBIN 29.4 pg (27.0-34.0); MEAN CORPUSCULAR HGB CONC 33.3 g/dL (33.0-35.0); MEAN CORPUSCULAR VOLUME 88.3 fL (80.0-100.0); MEAN PLATELET VOLUME 6.7 fL (7.4-11.0); MONOCYTES # (AUTO) 0.6 x10^3/uL (0.3-0.8); MONOCYTES % (AUTO) 6.3 % (0.0-13.0); NEUTROPHILS # (AUTO) 8.8 x10^3/uL (2.2-4.8); PLATELET COUNT 337 X10^3/uL (150.0-450.0); RED BLOOD COUNT 3.11 X10^6/uL (4.7-6.0); RED CELL DISTRIBUTION WIDTH 15.6 % (11.6-16.5)
[2019-11-29 04:04] LABS: ALBUMIN 2.3 g/dL (3.4-5.0); CALCIUM 8.4 mg/dL (8.5-10.1); CARBON DIOXIDE 31.3 mmol/L (21-32); CKMB % 12.8 % (<4); COR CA(FOR HYPOALB) 9.8 mg/dL (8.5-10.1); CREATININE 1.88 mg/dL (0.70-1.30); TOTAL PROTEIN 5.9 g/dL (6.4-8.2); TROPONIN I 0.58 ng/mL (0-1.5)
[2019-11-29 04:06] LABS: CREATINE KINASE MB 4.1 ng/mL (0-4.0)
[2019-11-29] MEDS ORDERED: SYNTHROID 100 mcg TAB ONE (05:57)
--- NOTE | 2019-11-29 06:01 | RAD ---
Chest AP portableIndication: Dyspnea. Bladder and throat cancer.[email or web address] leads obscure detail. There is no pneumothorax. Heart size is normal. Lungs are hyperinflated. Patchy bilateral pulmonary opacities are noted.IMPRESSIONProminent heart size and COPD with patchy pulmonary opacities seen. Correlate for signs of developing pneumonia. Viral pneumonitis not excluded.Electronically signed by: MEET BROCK (Nov 29, 2019 05:59:28)
[2019-11-29] MEDS: SYNTHROID 100 mcg TAB PO SCH (06:16)
[2019-11-29] MEDS: PULMICORT NEB TX 0.5 MG NEB SCH ×2 (09:10→20:40)
[2019-11-29] MEDS: CORDARONE TAB 200 MG PO SCH (09:39)
[2019-11-29] MEDS: ELIQUIS PO SCH ×2 (09:40→22:40)
[2019-11-29] MEDS: ROBITUSSIN DM PO SCH ×4 (09:40→21:10)
[2019-11-29] MEDS: PROTONIX INJ 40 MG VIAL IVP SCH (09:40)
[2019-11-29 09:41] LABS: CKMB % 10.4 % (<4); CREATINE KINASE MB 2.9 ng/mL (0-4.0); TROPONIN I 0.35 ng/mL (0-1.5)
[2019-11-29] MEDS: HEMOCYTE-PLUS PO SCH (14:18)
[2019-11-29 14:58] VITALS: BMI 19.8
[2019-11-29 15:27] LABS: CKMB % 9.6 % (<4); CREATINE KINASE MB 2.5 ng/mL (0-4.0); TROPONIN I 0.23 ng/mL (0-1.5)
[2019-11-29] MEDS: ZITHROMAX INJ 500 MG VIAL 500 MG in NS 250 ML IV 250 ML IV SCH (21:10)
[2019-11-29] MEDS: ZOCOR TAB 10 MG PO SCH (21:10)
[2019-11-29 22:11] LABS: CKMB % 7.6 % (<4); CREATINE KINASE MB 1.9 ng/mL (0-4.0); TROPONIN I 0.21 ng/mL (0-1.5)
[2019-11-30] MEDS: DUONEB 0.5 MG/3 MG (3 mL) NEB SCH ×4 (00:53→12:41)
--- NOTE | 2019-11-30 05:50 | RAD ---
Chest AP portableIndication: Pneumonia.[email or web address] is no pneumothorax. Heart size is normal. No large effusion. Pulmonary hyperinflation is noted. Mild peribronchial thickening noted. Monitoring leads obscure detail.IMPRESSIONCOPD with patchy pulmonary opacities. Correlate for developing pneumonia. Mild pneumonitis not excluded. Findings are similar to the previous day's radiograph.Electronically signed by: MEET BROCK (Nov 30, 2019 05:48:44)
[2019-11-30 05:53] LABS: ALANINE AMINOTRANSFERASE 17 Units/L (12-78); ALBUMIN 2.5 g/dL (3.4-5.0); ALKALINE PHOSPHATASE 63 Units/L (46-116); ASPARTATE AMINO TRANSFERASE 13 Units/L (15-37); BLOOD UREA NITROGEN 30 mg/dL (7-18); CALCIUM 8.7 mg/dL (8.5-10.1); CARBON DIOXIDE 31.1 mmol/L (21-32); CHLORIDE 100 mmol/L (98-107); COR CA(FOR HYPOALB) 9.9 mg/dL (8.5-10.1); CREATININE 1.45 mg/dL (0.70-1.30); SODIUM 136 mmol/L (136-145); TOTAL PROTEIN 6.4 g/dL (6.4-8.2); eGFR NON BLACK RACES 51 (>60)
[2019-11-30 06:02] LABS: BASOPHILS % (AUTO) 0.2 % (0.2-1.0); EOSINOPHILS % (AUTO) 0.4 % (0.9-2.9); HEMATOCRIT 29.3 % (42.0-54.0); HEMOGLOBIN 9.7 g/dL (13.5-18.0); LYMPHOCYTES # (AUTO) 0.6 X10^3/uL (1.3-2.9); LYMPHOCYTES % (AUTO) 5.1 % (21.0-51.0); MEAN CORPUSCULAR HGB CONC 33.1 g/dL (33.0-35.0); MEAN CORPUSCULAR VOLUME 87.6 fL (80.0-100.0); MEAN PLATELET VOLUME 6.6 fL (7.4-11.0); MONOCYTES # (AUTO) 0.7 x10^3/uL (0.3-0.8); MONOCYTES % (AUTO) 5.6 % (0.0-13.0); NEUTROPHILS # (AUTO) 10.9 x10^3/uL (2.2-4.8); NEUTROPHILS % (AUTO) 88.7 % (42.0-75.0); PLATELET COUNT 392 X10^3/uL (150.0-450.0); RED BLOOD COUNT 3.34 X10^6/uL (4.7-6.0); RED CELL DISTRIBUTION WIDTH 15.5 % (11.6-16.5); WHITE BLOOD COUNT 12.2 X10^3/uL (3.6-10.0)
[2019-11-30] MEDS: SYNTHROID 100 mcg TAB PO SCH (06:16)
[2019-11-30] MEDS: CORDARONE TAB 200 MG PO SCH (08:00)
[2019-11-30] MEDS: ROBITUSSIN DM PO SCH ×3 (08:00→17:11)
[2019-11-30] MEDS: HEMOCYTE-PLUS PO SCH (08:22)
[2019-11-30] MEDS: ELIQUIS PO SCH ×2 (08:22→21:39)
[2019-11-30] MEDS: PROTONIX INJ 40 MG VIAL IVP SCH (08:23)
[2019-11-30] MEDS: PULMICORT NEB TX 0.5 MG NEB SCH ×2 (09:55→22:05)
[2019-11-30] MEDS: ZESTRIL TAB 10 MG PO SCH (13:03)
[2019-11-30] MEDS: ZOSYN VIAL 3.375 GRAMS 3.375 G in NS 100 ML IV 100 ML IV SCH ×2 (14:00→22:50)
[2019-11-30] MEDS: NORCO 10/325 TAB PO PRN (14:00)
[2019-11-30] MEDS ORDERED: XOPENEX 1.25 MG/3 ML NEBULE NEB SCH (14:30)
[2019-11-30] MEDS ORDERED: LOPRESSOR TAB 25 MG ONE (14:32)
[2019-11-30] MEDS ORDERED: NICOTINE PATCH TD ONE (14:32)
[2019-11-30] MEDS: NICOTINE PATCH TD SCH (14:33)
[2019-11-30] MEDS: LOPRESSOR TAB 25 MG PO SCH ×2 (14:33→21:30)
[2019-11-30] MEDS: LASIX IVP SCH (17:11)
[2019-11-30] MEDS ORDERED: TYLENOL 325 MG TAB PO PRN (17:26)
[2019-11-30] MEDS ORDERED: TYLENOL 325 MG TAB PO ONE (17:28)
[2019-11-30] MEDS: XOPENEX 1.25 MG/3 ML NEBULE NEB SCH (18:00)
[2019-11-30] MEDS ORDERED: NS 100 ML IV + SPIKE MINIBAG* 100 ML IV ONE (20:47)
[2019-11-30] MEDS ORDERED: ZOSYN VIAL 3.375 GRAMS IV ONE (20:48)
[2019-11-30] MEDS ORDERED: NS 250 ML IV 0 ML IV ONE (20:48)
[2019-11-30] MEDS: NS 1000 ML 1,000 ML IV SCH (21:05)
[2019-11-30] MEDS: ZITHROMAX INJ 500 MG VIAL 500 MG in NS 250 ML IV 250 ML IV SCH (21:35)
[2019-12-01] MEDS: XOPENEX 1.25 MG/3 ML NEBULE NEB SCH ×5 (00:45→17:00)
[2019-12-01] MEDS ORDERED: NS 100 ML IV + SPIKE MINIBAG* 100 ML IV ONE (04:48)
[2019-12-01] MEDS ORDERED: ZOSYN VIAL 3.375 GRAMS IV ONE (04:49)
[2019-12-01 05:43] LABS: BASOPHILS # (AUTO) 0.1 X10^3/uL (0.0-0.1); BASOPHILS % (AUTO) 0.9 % (0.2-1.0); EOSINOPHILS # (AUTO) 0.2 x10^3/uL (0.0-0.2); EOSINOPHILS % (AUTO) 1.8 % (0.9-2.9); HEMATOCRIT 27.3 % (42.0-54.0); HEMOGLOBIN 9.1 g/dL (13.5-18.0); LYMPHOCYTES # (AUTO) 0.8 X10^3/uL (1.3-2.9); LYMPHOCYTES % (AUTO) 7.7 % (21.0-51.0); MEAN CORPUSCULAR HEMOGLOBIN 29.6 pg (27.0-34.0); MEAN CORPUSCULAR HGB CONC 33.3 g/dL (33.0-35.0); MEAN CORPUSCULAR VOLUME 88.8 fL (80.0-100.0); MEAN PLATELET VOLUME 6.5 fL (7.4-11.0); MONOCYTES # (AUTO) 0.9 x10^3/uL (0.3-0.8); MONOCYTES % (AUTO) 8.2 % (0.0-13.0); NEUTROPHILS # (AUTO) 8.4 x10^3/uL (2.2-4.8); NEUTROPHILS % (AUTO) 81.4 % (42.0-75.0); PLATELET COUNT 350 X10^3/uL (150.0-450.0); RED BLOOD COUNT 3.07 X10^6/uL (4.7-6.0); RED CELL DISTRIBUTION WIDTH 15.6 % (11.6-16.5); WHITE BLOOD COUNT 10.4 X10^3/uL (3.6-10.0)
[2019-12-01 05:54] LABS: ALANINE AMINOTRANSFERASE 24 Units/L (12-78); ALBUMIN 2.4 g/dL (3.4-5.0); ALKALINE PHOSPHATASE 71 Units/L (46-116); ASPARTATE AMINO TRANSFERASE 18 Units/L (15-37); BLOOD UREA NITROGEN 23 mg/dL (7-18); CALCIUM 8.4 mg/dL (8.5-10.1); CARBON DIOXIDE 31.2 mmol/L (21-32); CHLORIDE 101 mmol/L (98-107); COR CA(FOR HYPOALB) 9.7 mg/dL (8.5-10.1); CREATININE 1.37 mg/dL (0.70-1.30); SODIUM 136 mmol/L (136-145); TOTAL PROTEIN 5.7 g/dL (6.4-8.2); eGFR NON BLACK RACES 55 (>60)
[2019-12-01] MEDS: ZOSYN VIAL 3.375 GRAMS 3.375 G in NS 100 ML IV 100 ML IV SCH ×3 (05:55→23:40)
[2019-12-01] MEDS: SYNTHROID 100 mcg TAB PO SCH (06:19)
[2019-12-01 07:05] LABS: BAND NEUTROPHILS % 1 % (0-10); PLATELET MORPHOLOGY COMMENT NORMAL (NORMAL)
--- NOTE | 2019-12-01 07:22 | RAD ---
HISTORYSOBSTUDYPortable AP [id number] normal heart size with symmetric pulmonary hyperinflation and diffuse bilateral interstitial prominence, especially in the lower lobes. No developing airspace consolidation, pulmonary edema or extrapulmonary air.IMPRESSIONFindings remain consistent with COPD a nd an area parenchymal distortion/fibrosis. No localized pneumonia identified.Electronically signed b y: VICKY PADILLA (Dec 01, 2019 07:21:18)
[2019-12-01 08:41] LABS: ABG BASE EXCESS 5.6 mmol/L (-2.0-2.0)
[2019-12-01 08:42] LABS: ABG ALLEN TEST POS; ABG HCO3 31.6 mmol/L (22-26)
[2019-12-01] MEDS: PULMICORT NEB TX 0.5 MG NEB SCH ×2 (08:44→21:30)
[2019-12-01] MEDS: ROBITUSSIN DM PO SCH ×5 (08:55→21:45)
[2019-12-01] MEDS: CORDARONE TAB 200 MG PO SCH (08:55)
[2019-12-01] MEDS: PROTONIX INJ 40 MG VIAL IVP SCH (08:56)
[2019-12-01] MEDS: ZESTRIL TAB 10 MG PO SCH (08:56)
[2019-12-01] MEDS: NICOTINE PATCH TD SCH (08:57)
[2019-12-01] MEDS: LOPRESSOR TAB 25 MG PO SCH ×2 (08:57→21:44)
[2019-12-01] MEDS: LASIX IVP SCH (08:57)
[2019-12-01] MEDS: ELIQUIS PO SCH ×2 (08:58→21:44)
[2019-12-01] MEDS: HEMOCYTE-PLUS PO SCH (08:58)
--- NOTE | 2019-12-01 09:33 | PCM.PROG ---
Progress Note - Progress Note for Day of Date of Exam: 12/01/19 - Subjective Subjective: IS BEING TREATED FOR COPD WITH ACUTE BRONCHITIS, PNEUMONIA, HYPOXIA, AND DEHYDRATION. HE WAS SWABBED FOR COVID-19, BUT HIS RESULTS ARE PENDING. HE DID HAVE A POSITIVE TEST OVER A MONTH AGO, BUT HAS SINCE TESTED NEGATIVE. HIS SPUTUM CULTURE DID GROW OUT KLEBSIELLA PNEUMONIAE AND PSUED UOMONAS. TODAY, HE IS ALERT AND ORIENTED, LYING IN BED ON MORNING ROUNDS. HE CONTINUE WITH COMPLAINTS OF SHORTNESS OF BREATH TODAY. ON EXAMINATION, HEART IS REGULAR IN RATE AND RHYTHM. BILATERAL LUNGS ARE NOTED WITH DIMINISHED LUNG SOUNDS THROUGHOUT. ABDOMEN IS FLAT, SOFT, AND NON-TENDER WITH NORMAL BOWEL SOUNDS NOTED IN ALL QUADRANTS. HIS VITALS THIS MORNING ARE: 98.2-79-29-97%NC-199/88. LABS WERE OBTAINED. ABNORMAL LAB VALUES INCLUDE THE FOLLOWING: WBC 10.4, RBC 3.07, HGB 9.1, HCT 27.3, BUN 23, CREATININE 1.37, CALCIUM 8.4, TOTAL BILI 0.10, CRP 19.30, TOTAL PROTEIN 5.7, ALBUMIN 2.4. AN ABG WAS REPEATED TODAY AND REVEALED: PH 7.400, PC02 51.0, P02 90.0, HC03 31.6, 02 SATURATION 97.0, BASE EXCESS 5.6. A CHEST XRAY WAS REPEATED AND REVEALED: Findings remain consistent with COPD and an area parenchymal distortion/fibrosis. No localized pneumonia identified. HE IS CURRENTLY RECEIVING NS AT [facility], ZOSYN 3.375G IV TID, AZITHROMYCIN 500MG IV HS, XOPENEX NEB TX, PULMICORT NEB TX, PTORONIX 40MG IV DAILY, HEMOCYTE PLUS, LOPRESSOR 25MG PO BID, ZESTRIL 10MG PO DAILY, SYNTHROID 100MCG PO DAILY, NORCO 10/325MG PO Q6H PRN, ROBITUSSIN DM 10 ML PO QID, ELIQUIS 5MG PO BID, AND AMIODARONE 200MG PO NORBERTO LY. WE WILL CONTINUE WITH CURRENT PLAN OF CARE TODAY. OTHERWISE, WE WILL FOLLOW UP WITH AM LABS AND CONTINUE TO MONITOR. - Past Medical Family Social History Past Med/Fam/Surg Hx: No changes since H&P Allergies: Allergies No Known Drug Allergies Allergy (Verified 12/24/16 15:32) - Review of Systems ROS: No change since H&P - Vital Signs and I&O's Vital Signs: Temperature 98.2 F Pulse Rate [Apical] 79 Pulse Rate 79 Respiratory Rate 29 Blood Pressure [Right Arm] 199/88 Blood Pressure [Left Arm] 174/80 Blood Pressure 167/87 O2 Sat by Pulse Oximetry 97 Intake and Output: Intake & Output 11/28/19 11/29/19 11/30/19 12/01/19 11:59 11:59 11:59 11:59 Intake Total 869 / 869 2035 / 2035 1879 / 1879 Output Total 1400 / 1400 1000 / 1000 2350 / 2350 Balance -531 / -531 1035 / 1035 -471 / -471 - Physical Exam Oriented: Normal Eyes: Normal Ear: Normal Nose: Normal Throat: Normal Respiratory: Generalized, Diminished Cardiovascular: Normal : Normal Auscultation: Bowel Sounds: Normal Palpation: Normal Tenderness: Normal Skin: Decreased Turgur Musculoskeletal: Back:Thoracic, Back:Lumbar Psychiatric: Anxiety Affect: Anxious Speech Pattern: Clear, Appropriate - Laboratory and Diagnostics Result Diagrams: 12/01/19 04:49 12/01/19 04:49 Labs: 11/28/19 22:06 Sputum - Expectorated Sputum Sputum Culture - Final Klebsiella Pneumoniae Pseudomonas Aeruginosa 11/28/19 22:06 Sputum - Expectorated Sputum - Final Laboratory WBC 10.4 X10^3/uL (3.6-10.0) H 12/01/19 04:49 RBC 3.07 X10^6/uL (4.7-6.0) L 12/01/19 04:49 Hgb 9.1 g/dL (13.5-18.0) L 12/01/19 04:49 Hct 27.3 % (42.0-54.0) L 12/01/19 04:49 MCV 88.8 fL (80.0-100.0) 12/01/19 04:49 MCH 29.6 pg (27.0-34.0) 12/01/19 04:49 MCHC 33.3 g/dL (33.0-35.0) 12/01/19 04:49 RDW 15.6 % (11.6-16.5) 12/01/19 04:49 Plt Count 350 X10^3/uL (150.0-450.0) 12/01/19 04:49 Plt Count Comment Adequate (ADEQUATE) 12/01/19 04:49 MPV 6.5 fL (7.4-11.0) L 12/01/19 04:49 Neut % (Auto) 81.4 % (42.0-75.0) H 12/01/19 04:49 Lymph % (Auto) 7.7 % (21.0-51.0) L 12/01/19 04:49 [place] % (Auto) 8.2 % (0.0-13.0) 12/01/19 04:49 Eos % (Auto) 1.8 % (0.9-2.9) 12/01/19 04:49 Baso % (Auto) 0.9 % (0.2-1.0) 12/01/19 04:49 Neut # (Auto) 8.4 x10^3/uL (2.2-4.8) H 12/01/19 04:49 Lymph # (Auto) 0.8 X10^3/uL (1.3-2.9) L 12/01/19 04:49 [place] # (Auto) 0.9 x10^3/uL (0.3-0.8) H 12/01/19 04:49 Eos # (Auto) 0.2 x10^3/uL (0.0-0.2) 12/01/19 04:49 Baso # (Auto) 0.1 X10^3/uL (0.0-0.1) 12/01/19 04:49 Absolute Nucleated RBC 0.0 /100WBC 12/01/19 04:49 Total Counted 100 12/01/19 04:49 Neutrophils % (Manual) 90 % (39-76) H 12/01/19 04:49 Band Neutrophils % 1 % (0-10) 12/01/19 04:49 Lymphocytes % (Manual) 7 % (13-43) L 12/01/19 04:49 Monocytes % (Manual) 2 % (4-9) L 12/01/19 04:49 Eosinophils % (Manual) 1 % (0-6) 11/28/19 15:32 Plt Morphology Comment Normal (NORMAL) 12/01/19 04:49 RBC Morphology Normal (NORMAL) 12/01/19 04:49 ESR 72 MM/HOUR (0-15) H 11/29/19 08:55 Sample Site Lr 12/01/19 08:31 ABG pH 7.400 (7.35-7.45) 12/01/19 08:31 ABG pCO2 51.0 mmHg (35.0-45.0) H* 12/01/19 08:31 ABG pO2 90.0 mmHg (80.0-100.0) 12/01/19 08:31 ABG HCO3 31.6 mmol/L (22-26) H* 12/01/19 08:31 ABG O2 Saturation 97.0 % (90-100) 12/01/19 08:31 ABG Base Excess 5.6 mmol/L (-2.0-2.0) H 12/01/19 08:31 Ed Test Pos 12/01/19 08:31 A-a Gradient 74.0 mmHg 12/01/19 08:31 FiO2 32.0 12/01/19 08:31 Blood Gas Comments Pt rossi well. cdn 12/01/19 08:31 Sodium 136 mmol/L (136-145) 12/01/19 04:49 Corrected Sodium TNP 12/01/19 04:49 Potassium 4.6 mmol/L (3.5-5.1) 12/01/19 04:49 Chloride 101 mmol/L (98-107) 12/01/19 04:49 Carbon Dioxide 31.2 mmol/L (21-32) 12/01/19 04:49 BUN 23 mg/dL (7-18) H 12/01/19 04:49 Creatinine 1.37 mg/dL (0.70-1.30) H 12/01/19 04:49 Est GFR (MDRD) Af Amer > 60 (>60) 12/01/19 04:49 Est GFR (MDRD) Non-Af 55 (>60) L 12/01/19 04:49 Glucose 82 mg/dL (65-99) 12/01/19 04:49 Calcium 8.4 mg/dL (8.5-10.1) L 12/01/19 04:49 Corrected Calcium 9.7 mg/dL (8.5-10.1) 12/01/19 04:49 Iron 22 ug/dL (50-175) L 11/28/19 15:11 Transferrin 245 mg/dL (202-364) 11/28/19 15:11 Ferritin 65 ng/mL (26-388) 12/01/19 04:49 Total Bilirubin 0.10 mg/dL (0.2-1.0) L 12/01/19 04:49 AST 18 Units/L (15-37) 12/01/19 04:49 ALT 24 Units/L (12-78) 12/01/19 04:49 Alkaline Phosphatase 71 Units/L (46-116) 12/01/19 04:49 Creatine Kinase 25 Units/L (39-308) L 11/29/19 21:30 CK-MB (CK-2) 1.9 ng/mL (0-4.0) 11/29/19 21:30 CK/CKMB % Calc 7.6 % (<4) 11/29/19 21:30 Troponin I 0.21 ng/mL (0-1.5) 11/29/19 21:30 C-Reactive Protein 19.30 mg/L (0-3.0) H 12/01/19 04:49 Total Protein 5.7 g/dL (6.4-8.2) L 12/01/19 04:49 Albumin 2.4 g/dL (3.4-5.0) L 12/01/19 04:49 Globulin 3.3 g/dL (2.5-4.5) 12/01/19 04:49 Albumin/Globulin Ratio 0.7 Ratio (1.1-2.1) L 12/01/19 04:49 Vitamin B12 1182 pg/mL (193-986) H 11/28/19 15:11 Folate 17.5 ng/mL (>8.6) 11/28/19 15:11 Specimen Type Clean catch urine 11/28/19 18:31 Urine Color Yellow (YELLOW) 11/28/19 18:31 Urine Appearance Clear (CLEAR) 11/28/19 18: Urine pH 6.0 (5.0 - 8.0) 11/28/19 18:31 Ur Specific [place] 1.010 (1.000-1.030) 11/28/19 18:31 Urine Protein 1+ (NEGATIVE) 11/28/19 18: Urine Glucose (UA) Negative (NEGATIVE) 11/28/19 18:31 Urine Ketones Negative (NEGATIVE) 11/28/19 18:31 Urine Occult Blood 1+ (NEGATIVE) 11/28/19 18:31 Urine Nitrite Negative (NEGATIVE) 11/28/19 18:31 Urine Bilirubin Negative (NEGATIVE) 11/28/19 18:31 Urine Urobilinogen Normal (NORMAL) 11/28/19 18:31 Ur Leukocyte Esterase Negative (NEGATIVE) 11/28/19 18:31 Urine RBC 0-2 /HPF (0-3) 11/28/19 18:31 Urine WBC 0-2 /HPF (0-5) 11/28/19 18:31 Ur Squamous Epith Cells Rare /HPF (NEGATIVE) 11/28/19 18:31 Urine Bacteria Negative /HPF (NEGATIVE) 11/28/19 18:31 Ur Culture Indicated? No/not indicated 11/28/19 18:31 Stool Description 120g brown solid 11/29/19 04:50 Stl Occult Blood (IFOB) Positive (NEGATIVE) A 11/29/19 04:50 - Plan (1) COPD with acute bronchitis Status: Acute (2) Pneumonia Status: Acute Qualifiers: Pneumonia type: due to Klebsiella pneumoniae Laterality: unspecified laterality Lung location: unspecified part of lung Qualified Code(s): J15.0 - Pneumonia due to Klebsiella pneumoniae (3) Hypoxia Status: Acute (4) Dehydration Status: Acute
[2019-12-01] MEDS: ZOCOR TAB 10 MG PO SCH ×2 (11:46→21:45)
[2019-12-01] MEDS: NS 1000 ML 1,000 ML IV SCH (11:48)
[2019-12-01] MEDS: NORCO 10/325 TAB PO PRN (12:05)
[2019-12-01] MEDS ORDERED: RESTORIL CAP 15 MG PO PRN (20:30)
[2019-12-01] MEDS: ZITHROMAX INJ 500 MG VIAL 500 MG in NS 250 ML IV 250 ML IV SCH (21:45)
[2019-12-02] MEDS: XOPENEX 1.25 MG/3 ML NEBULE NEB SCH ×2 (00:46→06:23)
[2019-12-02] MEDS: NS 1000 ML 1,000 ML IV SCH (05:22)
[2019-12-02] MEDS: ZOSYN VIAL 3.375 GRAMS 3.375 G in NS 100 ML IV 100 ML IV SCH (05:23)
[2019-12-02 05:34] LABS: BASOPHILS # (AUTO) 0.2 X10^3/uL (0.0-0.1); BASOPHILS % (AUTO) 2.1 % (0.2-1.0); EOSINOPHILS # (AUTO) 0.3 x10^3/uL (0.0-0.2); HEMATOCRIT 27.5 % (42.0-54.0); HEMOGLOBIN 8.9 g/dL (13.5-18.0); LYMPHOCYTES # (AUTO) 0.8 X10^3/uL (1.3-2.9); LYMPHOCYTES % (AUTO) 8.3 % (21.0-51.0); MEAN CORPUSCULAR HEMOGLOBIN 29.2 pg (27.0-34.0); MEAN CORPUSCULAR HGB CONC 32.6 g/dL (33.0-35.0); MEAN CORPUSCULAR VOLUME 89.6 fL (80.0-100.0); MEAN PLATELET VOLUME 6.6 fL (7.4-11.0); MONOCYTES # (AUTO) 1.1 x10^3/uL (0.3-0.8); MONOCYTES % (AUTO) 10.8 % (0.0-13.0); NEUTROPHILS # (AUTO) 7.6 x10^3/uL (2.2-4.8); NEUTROPHILS % (AUTO) 75.8 % (42.0-75.0); PLATELET COUNT 361 X10^3/uL (150.0-450.0); RED BLOOD COUNT 3.07 X10^6/uL (4.7-6.0); RED CELL DISTRIBUTION WIDTH 15.6 % (11.6-16.5)
[2019-12-02 06:07] LABS: ALANINE AMINOTRANSFERASE 20 Units/L (12-78); ALBUMIN 2.4 g/dL (3.4-5.0); ALKALINE PHOSPHATASE 69 Units/L (46-116); ASPARTATE AMINO TRANSFERASE 20 Units/L (15-37); BLOOD UREA NITROGEN 19 mg/dL (7-18); CALCIUM 8.4 mg/dL (8.5-10.1); CARBON DIOXIDE 31.3 mmol/L (21-32); CHLORIDE 100 mmol/L (98-107); COR CA(FOR HYPOALB) 9.7 mg/dL (8.5-10.1); CREATININE 1.34 mg/dL (0.70-1.30); SODIUM 136 mmol/L (136-145); TOTAL PROTEIN 5.7 g/dL (6.4-8.2); eGFR NON BLACK RACES 56 (>60)
--- NOTE | 2019-12-02 06:39 | RAD ---
CHEST, 1 VIEWHistory: SHORTNESS OF BREATHComparison: 12/01/2019Findings: Cardiac silhouette is normal in size. Lungs are hyperinflated with flattening of the hemidiaphragms and stable coarsened interstitial markings, compatible with COPD. No acute alveolar infiltrate or significant effusion is identified. No pneumothorax.Impression: Stable findings of COPD without acute cardiopulmonary abnormality.Electronically signed by: LANG ALVARADO (Dec 02, 2019 06:38:17)
[2019-12-02 06:41] LABS: BAND NEUTROPHILS % 1 % (0-10); PLATELET MORPHOLOGY COMMENT NORMAL (NORMAL)
[2019-12-02] MEDS: NORCO 10/325 TAB PO PRN (08:09)
[2019-12-02 08:11] VITALS: BP 166/76
[2019-12-02] MEDS: NICOTINE PATCH TD SCH (08:25)
[2019-12-02] MEDS: ROBITUSSIN DM PO SCH (08:27)
[2019-12-02] MEDS: LOPRESSOR TAB 25 MG PO SCH (08:27)
[2019-12-02] MEDS: ZESTRIL TAB 10 MG PO SCH (08:27)
[2019-12-02] MEDS: CORDARONE TAB 200 MG PO SCH (08:28)
[2019-12-02] MEDS: ELIQUIS PO SCH (08:28)
[2019-12-02] MEDS: PROTONIX INJ 40 MG VIAL IVP SCH (08:28)
[2019-12-02] MEDS: HEMOCYTE-PLUS PO SCH (08:29)
[2019-12-02] MEDS: PULMICORT NEB TX 0.5 MG NEB SCH (09:11)
== END 2019-12-02 11:34 | disposition home or self-care (01) | DRG 178 ==
LOC: ICU
PROVIDERS: ADMIT Internal Medicine; ATTEND Internal Medicine
DX: R26.89 Other abnormalities of gait and mobility; J15.0 Pneumonia due to Klebsiella pneumoniae; I48.91 Unspecified atrial fibrillation; J44.9 Chronic obstructive pulmonary disease, unspecified; R70.0 Elevated erythrocyte sedimentation rate; Z85.51 Personal history of malignant neoplasm of bladder; J44.0 Chronic obstructive pulmonary disease with (acute) lower respiratory infection; N17.8 Other acute kidney failure; E86.0 Dehydration; J20.8 Acute bronchitis due to other specified organisms; Z72.0 Tobacco use; B96.5 Pseudomonas (aeruginosa) (mallei) (pseudomallei) as the cause of diseases classified elsewhere; Z11.59 Encounter for screening for other viral diseases; I10 Essential (primary) hypertension; D64.89 Other specified anemias; R79.82 Elevated C-reactive protein (CRP); Z85.819 Personal history of malignant neoplasm of unspecified site of lip, oral cavity, and pharynx
CPT/HCPCS: 36415; 36600; 71010; 71045; 80053; 81001; 82270; 82550; 82553; 82607; 82728; 82746; 82803; 83540; 84466; 84484; 85025; 85652; 86140; 87070; 87077; 87186; 87205; 93005; 94640; 97110; 97162; 97166; A4216; C9113; G0378; J0456; J1940; J2543; J7030; J7050; J7620; J7626; J8540

== ENCOUNTER 2020-11-03 12:43 | Inpatient (IN) ==
[2020-11-03] MEDS ORDERED: TUSSIONEX PENNKINETIC SUSP PO PRN (16:31)
[2020-11-03] MEDS ORDERED: XOPENEX 1.25 MG/3 ML NEBULE NEB ONE (16:45)
[2020-11-03 16:54] LABS: ABG BASE EXCESS 13.3 mmol/L (-2.0-2.0)
[2020-11-03 16:55] LABS: ABG ALLEN TEST POS; ABG HCO3 40.6 mmol/L (22-26)
[2020-11-03] MEDS: XOPENEX 1.25 MG/3 ML NEBULE NEB SCH (16:58)
[2020-11-03] MEDS: SOLU-Medrol 125 MG VIAL IVP SCH ×2 (17:05→21:15)
[2020-11-03] MEDS: ZITHROMAX INJ 500 MG VIAL 500 MG in D5W 250 ML IV 250 ML IV SCH (17:05)
[2020-11-03] MEDS: ROBITUSSIN DM PO SCH ×2 (17:05→21:15)
[2020-11-03] MEDS: NS 1000 ML 1,000 ML IV SCH (17:05)
--- NOTE | 2020-11-03 17:18 | DR.H&P ---
H&P - History & Physical for Day of: H&P Date: 11/03/20 - Chief Complaint Chief Complaint: SOB, CCC, WEAKNESS, INCREASED WHEEZING - History of Present Illness History of Present Illness: PT IS 70 WM DIRECT ADMIT FROM DR [place] OFFICE WITH SOB, CCC, AND INCREASED WEAKNESS. PT HAD COPD AND RESP FAILURE WITH CONTINUOUS SUPPLEMENTAL O2, SATING 84% ON 3L NC IN OFFICE, 74 AFTER EXERTION. PT FAILED OUTPT TREATMENT WITH PO PREDNISONE AND ZITHROMAX 500MG PO. PT DENIES ANY FEVER OR KNOWN COVID EXPOSURE. PT HAS PMH OF RESP FAILURE, COPD, AFIB, HTN, HYPOTHYROIDISM AND LSPINE DDD. PT ADMITTED FOR ACUTE RESP DISTRESS RO COVID 19 - Past Medical History Past Medical History: Hypertension, Hypothyroidism, COPD, GERD, Arthritis Additional Medical History: THROAT CANCER- IN REMISSION. BLADDER CANCER- FOLLOWED BY DR SANTA - Past Surgical History Surgical History: Other Additional Surgical History: PT HAS PEG TUBE PLACEMENT AND REMOVAL, THROAT CANCER SURGERY. BLADDER CANCER SURGERY - Family History Family Medical History: Cancer - Social History Does patient currently use any type of tobacco product: Yes Have you used tobacco products in the last 12 months: Yes Type of Tobacco Use: Cigarettes Does any household member use tobacco: No Alcohol Use: None Drug Use: None Risks, benefits, and alternatives of opioids discussed: No - Medications Home Medications: No Known Drug Allergies Allergy (Verified 02/04/20 11:09) - Review of Systems Constitutional: Weakness, Malaise Eyes: No Symptoms Reported ENT: No Symptoms Reported Respiratory: No Symptoms Reported Cardiovascular: No Symptoms Reported Gastrointestinal: Nausea, Other (POOR APPETITE) Genitourinary: No Symptoms Reported Musculoskeletal: No Symptoms Reported Skin: No Symptoms Reported Neurological: No Symptoms Reported - Physical Exam Vital Signs: Respiratory Rate 20 Blood Pressure [Right Arm] 101/60 Blood Pressure [Left Arm] 174/80 Blood Pressure 110/60 O2 Sat by Pulse Oximetry 97 Oriented: Normal Eyes: Normal Ear: Normal Nose: Normal Throat: Normal Respiratory: Wheezes Throughout, RML Diminished, RLL Diminished, LML Diminished, LLL Diminished Cardiovascular: Normal : Normal Auscultation: Bowel Sounds: Normal Palpation: Normal Tenderness: Normal Skin: Decreased Turgur Psychiatric: Anxiety Mood Description: Anxious Affect: Anxious Speech Pattern: Clear, Appropriate - Assessment/Plan (1) COPD with acute bronchitis Status: Acute Plan: ADMIT, COVID 19 SWAB ON ADMISSION. IV ATBX, RESP THERAPY BLOOD AND SPUTUM CULTURE ON ADMISSION. EKG ON ADMISSION. RAFA NEBCaleb, VERIFY HOME MEDICATION. ABG ON ADMISSION (2) Hypoxia Status: Acute (3) Pneumonia Qualifiers: Pneumonia type: due to Klebsiella pneumoniae Laterality: unspecified lat erality Lung location: unspecified part of lung Qualified Code(s): J15.0 - Pneumonia due to Klebsiella pneumoniae Status: Acute (4) SOB (shortness of breath) Status: Acute (5) Hypertension Qualifiers: Hypertension type: essential hypertension Qualified Code(s): I10 - Essential (primary) hypertension Status: Chronic (6) History of throat cancer Status: Chronic (7) History of bladder cancer Status: Chronic - Allergies Allergies/Adverse Reactions: Allergies Allergy/AdvReac Type Severity Reaction Status Date / Time No Known Drug Allergies Allergy Verified 02/04/20 11:09
[2020-11-03 17:20] LABS: BASOPHILS % (AUTO) 0.3 % (0.2-1.0); HEMATOCRIT 34.9 % (42.0-54.0); HEMOGLOBIN 11.7 g/dL (13.5-18.0); LYMPHOCYTES # (AUTO) 0.5 X10^3/uL (1.3-2.9); LYMPHOCYTES % (AUTO) 6.2 % (21.0-51.0); MEAN CORPUSCULAR HEMOGLOBIN 28.7 pg (27.0-34.0); MEAN CORPUSCULAR HGB CONC 33.5 g/dL (33.0-35.0); MEAN CORPUSCULAR VOLUME 85.5 fL (80.0-100.0); MONOCYTES # (AUTO) 0.4 x10^3/uL (0.3-0.8); MONOCYTES % (AUTO) 5.2 % (0.0-13.0); NEUTROPHILS # (AUTO) 7.6 x10^3/uL (2.2-4.8); NEUTROPHILS % (AUTO) 88.3 % (42.0-75.0); PLATELET COUNT 240 X10^3/uL (150.0-450.0); RED BLOOD COUNT 4.08 X10^6/uL (4.7-6.0); RED CELL DISTRIBUTION WIDTH 16.2 % (11.6-16.5); WHITE BLOOD COUNT 8.6 X10^3/uL (3.6-10.0)
[2020-11-03 17:29] LABS: ALANINE AMINOTRANSFERASE 17 Units/L (12-78); ALBUMIN 3.5 g/dL (3.4-5.0); ALKALINE PHOSPHATASE 100 Units/L (46-116); ASPARTATE AMINO TRANSFERASE 14 Units/L (15-37); BLOOD UREA NITROGEN 30 mg/dL (7-18); CALCIUM 8.9 mg/dL (8.5-10.1); CARBON DIOXIDE 37.5 mmol/L (21-32); CHLORIDE 102 mmol/L (98-107); CREATININE 1.25 mg/dL (0.70-1.30); SODIUM 144 mmol/L (136-145); eGFR NON BLACK RACES > 60 (>60)
[2020-11-03 19:05] VITALS: BMI 18.6
--- NOTE | 2020-11-03 19:29 | RAD ---
HISTORYCOPD, SOB, PNEUMONIASTUDYCHEST, 1 VIEWCOMPARISONAugust 2019[facility] 1 view AP projection, 2 imagesFINDINGSNo cardiomegalyAirspace disease in the right infrahilar region, obscuring the right heart border, could be located within the middle lobe.No acute osseous abnormality.No pleural effusion.No pneumothorax.Soft tissues are unremarkable.No acute osseous abnormality.Lungs are hyperinflated.IMPRESSION1. Airspace disease in the right infrahilar region, obscuring the right heart border, could be located within the middle lobe. Differential diagnosis atelectasis and infiltrate. Recommend continued follow-up to resolution to exclude an underlying neoplastic process.2. Lungs are hyperinflated; consistent with COPD.Electronically signed by: Jerel Almodovar (November 03, 2020 19:27:56)
[2020-11-03] MEDS ORDERED: PULMICORT NEB TX 0.5 MG NEB ONE (19:36)
[2020-11-03] MEDS ORDERED: MUCOMYST (RESPIRATORY USE ONLY) ONE (19:37)
[2020-11-03] MEDS ORDERED: STERILE WATER IRRIGATION IR ONE (19:55)
[2020-11-03] MEDS: PULMICORT NEB TX 0.5 MG NEB SCH (20:10)
[2020-11-03] MEDS ORDERED: MUCOMYST (RESPIRATORY USE ONLY) NEB SCH (21:00)
[2020-11-03] MEDS: LOPRESSOR TAB 25 MG PO SCH (21:14)
[2020-11-03] MEDS: ZOCOR TAB 10 MG PO SCH (21:15)
[2020-11-04] MEDS: MUCOMYST 20% 200 MG/ML NEB SCH ×4 (00:10→17:45)
[2020-11-04] MEDS: XOPENEX 1.25 MG/3 ML NEBULE NEB SCH ×4 (00:10→17:45)
[2020-11-04] MEDS ORDERED: NS 100 ML IV 100 ML IV ONE (05:17)
[2020-11-04 06:18] LABS: BASOPHILS % (AUTO) 0.1 % (0.2-1.0); HEMATOCRIT 36.2 % (42.0-54.0); LYMPHOCYTES # (AUTO) 0.4 X10^3/uL (1.3-2.9); LYMPHOCYTES % (AUTO) 5.9 % (21.0-51.0); MEAN CORPUSCULAR HEMOGLOBIN 28.4 pg (27.0-34.0); MEAN CORPUSCULAR HGB CONC 33.2 g/dL (33.0-35.0); MEAN CORPUSCULAR VOLUME 85.5 fL (80.0-100.0); MONOCYTES # (AUTO) 0.2 x10^3/uL (0.3-0.8); MONOCYTES % (AUTO) 2.8 % (0.0-13.0); NEUTROPHILS # (AUTO) 6.5 x10^3/uL (2.2-4.8); NEUTROPHILS % (AUTO) 91.2 % (42.0-75.0); PLATELET COUNT 227 X10^3/uL (150.0-450.0); RED BLOOD COUNT 4.24 X10^6/uL (4.7-6.0); RED CELL DISTRIBUTION WIDTH 15.9 % (11.6-16.5); WHITE BLOOD COUNT 7.1 X10^3/uL (3.6-10.0)
[2020-11-04] MEDS: NS 1000 ML 1,000 ML IV SCH ×3 (06:28→23:45)
[2020-11-04] MEDS: SOLU-Medrol 125 MG VIAL IVP SCH ×3 (06:28→21:02)
[2020-11-04 06:38] LABS: ALANINE AMINOTRANSFERASE 23 Units/L (12-78); ALBUMIN 3.4 g/dL (3.4-5.0); ALKALINE PHOSPHATASE 101 Units/L (46-116); ASPARTATE AMINO TRANSFERASE 19 Units/L (15-37); BLOOD UREA NITROGEN 26 mg/dL (7-18); CARBON DIOXIDE 34.8 mmol/L (21-32); CHLORIDE 98 mmol/L (98-107); COR NA(FOR HYPERGLY) 139 mmol/L (136-145); CREATININE 1.04 mg/dL (0.70-1.30); SODIUM 139 mmol/L (136-145); TOTAL PROTEIN 7.1 g/dL (6.4-8.2); eGFR NON BLACK RACES > 60 (>60)
[2020-11-04 06:47] LABS: BAND NEUTROPHILS % 2 % (0-10); PLATELET MORPHOLOGY COMMENT NORMAL (NORMAL)
--- NOTE | 2020-11-04 09:01 | CT ---
HISTORYcopd, sob, pneumoniaSTUDYCHEST WITH CONCOMPARISONChest x-ray 11/03/2020TECHNIQUEMultiple axial images of the chest were obtained from the thoracic inlet to the upper abdomen after the administration of IV contrast. 3D reconstructions utilizing axial MIPS imaging was performed and reviewed. Dose reduction techniques including Automated Exposure Control (AEC) and adjustment of mA and kV were utilized.FINDINGSNo pneumothorax or effusion. Severe centrilobular emphysema. 0.8 cm right lower lobe nodule seen on series 5, image 62. Right middle lobe collapse and volume loss. Left upper lobe scarring.The heart is normal in size. No evidence of pericardial disease. Coronary calcifications. Prominence of the main pulmonary arteries.No acute osseous abnormality. Multilevel degenerative changes throughout the visualized spine.Limited visualized portions of the upper abdomen demonstrate no acute process. Partially visualized abdominal aortic aneurysm.IMPRESSIONRight middle lobe collapse and volume loss without definite acute airspace disease.Prominence of the main pulmonary arteries which may be seen with pulmonary hypertension.Severe centrilobular emphysema.Partially visualized abdominal aortic aneurysm.Electronically signed by: LUCI HUYNH (November 04, 2020 08:59:38)
[2020-11-04] MEDS: ZITHROMAX INJ 500 MG VIAL 500 MG in D5W 250 ML IV 250 ML IV SCH (09:21)
[2020-11-04] MEDS: SYNTHROID 100 mcg TAB PO SCH (09:22)
[2020-11-04] MEDS: ROBITUSSIN DM PO SCH ×4 (09:23→21:02)
[2020-11-04] MEDS: LOPRESSOR TAB 25 MG PO SCH ×2 (09:24→21:03)
[2020-11-04] MEDS: NICOTINE PATCH TD SCH (09:24)
[2020-11-04] MEDS: NORCO 10/325 TAB PO PRN ×2 (09:30→21:09)
[2020-11-04] MEDS: PULMICORT NEB TX 0.5 MG NEB SCH ×2 (09:45→20:18)
[2020-11-04] MEDS: ZOCOR TAB 10 MG PO SCH (21:02)
[2020-11-05] MEDS: XOPENEX 1.25 MG/3 ML NEBULE NEB SCH ×3 (00:29→13:03)
[2020-11-05] MEDS: MUCOMYST 20% 200 MG/ML NEB SCH ×3 (00:29→13:03)
[2020-11-05] MEDS: NORCO 10/325 TAB PO PRN ×2 (03:24→08:59)
[2020-11-05 05:27] LABS: BASOPHILS % (AUTO) 0.1 % (0.2-1.0); HEMATOCRIT 35.9 % (42.0-54.0); HEMOGLOBIN 11.7 g/dL (13.5-18.0); LYMPHOCYTES # (AUTO) 0.3 X10^3/uL (1.3-2.9); LYMPHOCYTES % (AUTO) 2.9 % (21.0-51.0); MEAN CORPUSCULAR HGB CONC 32.7 g/dL (33.0-35.0); MEAN CORPUSCULAR VOLUME 85.5 fL (80.0-100.0); MEAN PLATELET VOLUME 7.5 fL (7.4-11.0); MONOCYTES # (AUTO) 0.4 x10^3/uL (0.3-0.8); MONOCYTES % (AUTO) 3.6 % (0.0-13.0); NEUTROPHILS # (AUTO) 10.7 x10^3/uL (2.2-4.8); NEUTROPHILS % (AUTO) 93.4 % (42.0-75.0); PLATELET COUNT 246 X10^3/uL (150.0-450.0); RED CELL DISTRIBUTION WIDTH 16.1 % (11.6-16.5); WHITE BLOOD COUNT 11.5 X10^3/uL (3.6-10.0)
[2020-11-05 05:44] LABS: ALANINE AMINOTRANSFERASE 52 Units/L (12-78); ALBUMIN 3.4 g/dL (3.4-5.0); ALKALINE PHOSPHATASE 100 Units/L (46-116); ASPARTATE AMINO TRANSFERASE 40 Units/L (15-37); BLOOD UREA NITROGEN 29 mg/dL (7-18); CALCIUM 8.6 mg/dL (8.5-10.1); CHLORIDE 99 mmol/L (98-107); COR NA(FOR HYPERGLY) 137 mmol/L (136-145); SODIUM 136 mmol/L (136-145); TOTAL PROTEIN 6.9 g/dL (6.4-8.2); eGFR NON BLACK RACES 58 (>60)
[2020-11-05] MEDS: SOLU-Medrol 125 MG VIAL IVP SCH ×2 (06:00→13:45)
[2020-11-05 06:07] LABS: BAND NEUTROPHILS % 1 % (0-10); PLATELET MORPHOLOGY COMMENT NORMAL (NORMAL)
[2020-11-05] MEDS: ZITHROMAX INJ 500 MG VIAL 500 MG in D5W 250 ML IV 250 ML IV SCH (08:58)
[2020-11-05] MEDS: ROBITUSSIN DM PO SCH ×2 (08:58→13:44)
[2020-11-05] MEDS: LOPRESSOR TAB 25 MG PO SCH (08:59)
[2020-11-05] MEDS: NICOTINE PATCH TD SCH (09:00)
[2020-11-05] MEDS: SYNTHROID 100 mcg TAB PO SCH (09:00)
[2020-11-05] MEDS ORDERED: PROTONIX INJ 40 MG VIAL IVP ONE (09:44)
[2020-11-05] MEDS: PULMICORT NEB TX 0.5 MG NEB SCH (09:45)
[2020-11-05] MEDS ORDERED: PEPCID 20 MG IV PREMIX* 20 MG/50 ML BAG IV ONE (13:39)
[2020-11-05] MEDS ORDERED: PROTONIX INJ 40 MG VIAL ONE (13:39)
[2020-11-05] MEDS: PEPCID 20 MG IV PREMIX* 20 MG/50 ML BAG IV ONE ×2 (13:43→13:44)
[2020-11-05 13:50] VITALS: BP 147/68
== END 2020-11-05 14:45 | disposition home or self-care (01) | DRG 178 ==
LOC: OBS → OBSVTOIN 15:02 → MED/SURG 16:19
PROVIDERS: ADMIT Internal Medicine; ATTEND Internal Medicine
DX: K21.9 Gastro-esophageal reflux disease without esophagitis; Z85.21 Personal history of malignant neoplasm of larynx; R09.02 Hypoxemia; R94.31 Abnormal electrocardiogram [ECG] [EKG]; Z99.81 Dependence on supplemental oxygen; R26.89 Other abnormalities of gait and mobility; J15.0 Pneumonia due to Klebsiella pneumoniae; E03.8 Other specified hypothyroidism; R53.1 Weakness; J44.0 Chronic obstructive pulmonary disease with (acute) lower respiratory infection; Z20.822 Contact with and (suspected) exposure to COVID-19; Z85.51 Personal history of malignant neoplasm of bladder; I10 Essential (primary) hypertension; R06.02 Shortness of breath

== ENCOUNTER 2020-12-29 12:48 | Inpatient (IN) ==
[2020-12-29 14:39] LABS: BASOPHILS # (AUTO) 0.1 X10^3/uL (0.0-0.1); BASOPHILS % (AUTO) 0.9 % (0.2-1.0); EOSINOPHILS # (AUTO) 0.3 x10^3/uL (0.0-0.2); EOSINOPHILS % (AUTO) 2.1 % (0.9-2.9); HEMATOCRIT 37.2 % (42.0-54.0); LYMPHOCYTES # (AUTO) 0.9 X10^3/uL (1.3-2.9); LYMPHOCYTES % (AUTO) 6.1 % (21.0-51.0); MEAN CORPUSCULAR HEMOGLOBIN 28.2 pg (27.0-34.0); MEAN CORPUSCULAR HGB CONC 32.2 g/dL (33.0-35.0); MEAN CORPUSCULAR VOLUME 87.5 fL (80.0-100.0); MEAN PLATELET VOLUME 6.2 fL (7.4-11.0); MONOCYTES # (AUTO) 1.1 x10^3/uL (0.3-0.8); MONOCYTES % (AUTO) 7.8 % (0.0-13.0); NEUTROPHILS # (AUTO) 12.1 x10^3/uL (2.2-4.8); NEUTROPHILS % (AUTO) 83.1 % (42.0-75.0); PLATELET COUNT 299 X10^3/uL (150.0-450.0); RED BLOOD COUNT 4.25 X10^6/uL (4.7-6.0); RED CELL DISTRIBUTION WIDTH 16.5 % (11.6-16.5); WHITE BLOOD COUNT 14.5 X10^3/uL (3.6-10.0)
[2020-12-29 14:55] LABS: ALANINE AMINOTRANSFERASE 12 Units/L (12-78); ALBUMIN 3.5 g/dL (3.4-5.0); ALKALINE PHOSPHATASE 100 Units/L (46-116); ASPARTATE AMINO TRANSFERASE 12 Units/L (15-37); BLOOD UREA NITROGEN 12 mg/dL (7-18); CALCIUM 9.1 mg/dL (8.5-10.1); CARBON DIOXIDE 38.5 mmol/L (21-32); CHLORIDE 100 mmol/L (98-107); CREATININE 1.02 mg/dL (0.70-1.30); MAGNESIUM 2.4 mg/dL (1.7-2.9); SODIUM 142 mmol/L (136-145); TOTAL PROTEIN 7.4 g/dL (6.4-8.2); eGFR NON BLACK RACES > 60 (>60)
--- NOTE | 2020-12-29 15:44 | RAD ---
HISTORYSOB, CONGESTION[Chest pain and dyspnea].Exam: [PA and lateral views of the chest].Comparison: Chest radiograph dated November 03, 2020.Findings: The trachea is [midline]. The cardiomediastinal silhouette is [within normal limits]. There is [no evidence for CHF or pulmonary edema]. Hazy ground-glass changes are seen in the left lung base, suggesting an early infiltrate or pneumonia. Follow-up to complete resolution is recommended. The chest is hyperinflated with an increased AP dimension of the chest, diaphragmatic flattening, and central interstitial changes which would be compatible with changes of obstructive airways disease. []. [No acute bony abnormalities are seen].Impression:Hazy ground-glass changes are seen in the left lung base, suggesting an early infiltrate or pneumonia. Follow-up to complete resolution is recommended. Findings of obstructive airways disease/COPD. No other cardiopulmonary changes are identified.Electronically signed by: YAMILA PALACIO III (Dec 29, 2020 15:42:59)
[2020-12-29] MEDS ORDERED: SALINE 3% 15 ML NEB TX ONE (15:50)
[2020-12-29] MEDS ORDERED: XOPENEX 1.25 MG/3 ML NEBULE NEB ONE (15:50)
[2020-12-29] MEDS: XOPENEX 1.25 MG/3 ML NEBULE NEB SCH (16:15)
[2020-12-29 16:22] LABS: ABG BASE EXCESS 14.1 mmol/L (-2.0-2.0)
[2020-12-29 16:23] LABS: ABG ALLEN TEST POS; ABG HCO3 43.1 mmol/L (22-26)
[2020-12-29 16:33] VITALS: BMI 17.1
[2020-12-29 17:51] LABS: BILIRUBIN,URINE NEGATIVE (NEGATIVE); BLOOD/HEMOGLOBIN,URINE 1+ (NEGATIVE); GLUCOSE, URINE NEGATIVE (NEGATIVE); KETONES,URINE NEGATIVE (NEGATIVE); LEUKOCYTE ESTERASE ,URINE NEGATIVE (NEGATIVE); NITRITES,URINE NEGATIVE (NEGATIVE); PROTEIN,URINE 1+ (NEGATIVE); UROBILINOGEN,URINE NORMAL (NORMAL)
[2020-12-29] MEDS: NS 1000 ML 1,000 ML IV SCH (17:51)
[2020-12-29 18:01] LABS: APPEARANCE,URINE CLEAR (CLEAR); COLOR,URINE YELLOW (YELLOW)
[2020-12-29 18:03] LABS: BACTERIA,URINE NEGATIVE /HPF (NEGATIVE); RBC,URINE 0-2 /HPF (0-3); SQUAMOUS EPITHELIAL CELL,UR RARE /HPF (NEGATIVE)
--- NOTE | 2020-12-29 18:07 | DR.H&P ---
H&P - History & Physical for Day of: H&P Date: 12/29/20 - Chief Complaint Chief Complaint: CCC, SOB, WEAKNESS - History of Present Illness History of Present Illness: PT IS 70 WM DIRECT ADMIT FROM DR CANTRELL OFFICE WITH CO CCC WITH INCREASED SOB ONSET LAST TUESDAY. PT STARTED ON AUGMENTIN ON TUESDAY, 875 BID WITHOUT IMPROVEMENT. PT HAS BEEN TAKING PO PREDNISONE AND USING DUO NEBS WITH CONTINUED PRODUCTIVE COUGH. PT FAMILY REPORTS HE HAS BEEN WEAK WITH POOR PO INTAKE. PT HAS PMH OF COPD WITH RESP FAILURE, HTN, HYPOTHYROIDISM, OA, HX THROAT AND BLADDER CA. PT HAD NEGATIVE COVID SWAB LAST WEEK, PT ADMITTED FOR TREATMENT OF ACUTE ILLNESS. - Past Medical History Past Medical History: Hypertension, Hypothyroidism, COPD, GERD, Arthritis Additional Medical History: THROAT CANCER- IN REMISSION. BLADDER CANCER- FOLLOWED BY DR SANTA - Past Surgical History Surgical History: AAA Repair, Ortho Surgery, Other Additional Surgical History: PT HAS PEG TUBE PLACEMENT AND REMOVAL, THROAT CANCER SURGERY. BLADDER CANCER SURGERY - Family History Family Medical History: Hypertension - Social History Does patient currently use any type of tobacco product: Yes Have you used tobacco products in the last 12 months: Yes Type of Tobacco Use: Cigarettes Alcohol Use: None Drug Use: None - Medications Home Medications: No Known Drug Allergies Allergy (Verified 02/04/20 11:09) - Review of Systems Constitutional: Chills, Weakness, Malaise Eyes: No Symptoms Reported ENT: No Symptoms Reported Respiratory: Cough, Shortness of Breath, SOB with Excertion, Sputum, Wheezing Cardiovascular: Light Headedness Gastrointestinal: Nausea Genitourinary: Frequency Musculoskeletal: Back Pain, Leg Pain Skin: No Symptoms Reported Neurological: Weakness - Physical Exam Vital Signs: Temperature 98.3 F Pulse Rate [Left Radial] 71 Pulse Rate 47 Respiratory Rate 20 Blood Pressure [Right Arm] 141/71 Blood Pressure [Left Arm] 147/68 Blood Pressure 110/60 O2 Sat by Pulse Oximetry 98 Oriented: Normal Eyes: Normal Ear: Normal Nose: Normal Throat: Normal Respiratory: RLL Diminished, LLL Diminished Cardiovascular: Normal. negative: Edema : Normal Auscultation: Bowel Sounds: Normal Palpation: Normal Tenderness: Normal Skin: Decreased Turgur Musculoskeletal: Back:Thoracic, Back:Lumbar Psychiatric: Anxiety Affect: Anxious Speech Pattern: Clear (CHRONIC HOARSENESS ), Appropriate - Allergies Allergies/Adverse Reactions: Allergies Allergy/AdvReac Type Severity Reaction Status Date / Time No Known Drug Allergies Allergy Verified 02/04/20 11:09
[2020-12-29] MEDS: ROCEPHIN 1 GRAM IV PREMIX 1 G/50 ML IV.SOLN. IV SCH (18:26)
[2020-12-29] MEDS: ROBITUSSIN DM PO SCH ×2 (18:26→20:42)
[2020-12-29] MEDS: ELIQUIS PO SCH ×2 (18:26→20:44)
[2020-12-29] MEDS: PROTONIX INJ 40 MG VIAL IVP SCH ×2 (18:26→20:43)
[2020-12-29] MEDS: SOLU-Medrol 125 MG VIAL IVP SCH ×2 (18:26→21:06)
[2020-12-29 18:30] LABS: CKMB % 3.3 % (<4); CREATINE KINASE 52 Units/L (39-308); CREATINE KINASE MB 1.7 ng/mL (0-4.0); TROPONIN I < 0.02 ng/mL (0-1.5)
[2020-12-29] MEDS: NICOTINE PATCH TD SCH (19:07)
[2020-12-29] MEDS: NORCO 10/325 TAB PO PRN (19:07)
[2020-12-29] MEDS: PULMICORT NEB TX 0.5 MG NEB SCH (20:30)
[2020-12-29] MEDS: LEVAQUIN PREMIX IV 500 MG 500 MG/100 ML BAG IV SCH (20:42)
[2020-12-29] MEDS: LOPRESSOR TAB 25 MG PO SCH (20:43)
[2020-12-30] MEDS: XOPENEX 1.25 MG/3 ML NEBULE NEB SCH ×4 (00:39→17:18)
[2020-12-30] MEDS: SOLU-Medrol 125 MG VIAL IVP SCH ×3 (05:38→22:16)
[2020-12-30] MEDS: NORCO 10/325 TAB PO PRN ×3 (05:59→20:42)
[2020-12-30] MEDS: PROTONIX INJ 40 MG VIAL IVP SCH ×2 (09:01→20:45)
[2020-12-30] MEDS: LEVAQUIN PREMIX IV 500 MG 500 MG/100 ML BAG IV SCH (09:01)
[2020-12-30] MEDS: NICOTINE PATCH TD SCH (09:01)
[2020-12-30] MEDS: LOPRESSOR TAB 25 MG PO SCH ×2 (09:01→20:44)
[2020-12-30] MEDS: ELIQUIS PO SCH (09:01)
[2020-12-30] MEDS: ROBITUSSIN DM PO SCH ×4 (09:02→20:44)
[2020-12-30] MEDS: SYNTHROID 75 mcg TAB PO SCH (09:02)
[2020-12-30] MEDS: ROCEPHIN 1 GRAM IV PREMIX 1 G/50 ML IV.SOLN. IV SCH (09:02)
[2020-12-30] MEDS: PULMICORT NEB TX 0.5 MG NEB SCH ×2 (09:38→21:00)
[2020-12-30 09:47] LABS: BASOPHILS % (AUTO) 0.1 % (0.2-1.0); HEMATOCRIT 36.7 % (42.0-54.0); HEMOGLOBIN 11.8 g/dL (13.5-18.0); LYMPHOCYTES # (AUTO) 0.2 X10^3/uL (1.3-2.9); LYMPHOCYTES % (AUTO) 1.9 % (21.0-51.0); MEAN CORPUSCULAR HEMOGLOBIN 28.2 pg (27.0-34.0); MEAN CORPUSCULAR HGB CONC 32.1 g/dL (33.0-35.0); MEAN CORPUSCULAR VOLUME 87.8 fL (80.0-100.0); MEAN PLATELET VOLUME 6.5 fL (7.4-11.0); MONOCYTES # (AUTO) 0.1 x10^3/uL (0.3-0.8); MONOCYTES % (AUTO) 1.2 % (0.0-13.0); NEUTROPHILS # (AUTO) 7.8 x10^3/uL (2.2-4.8); NEUTROPHILS % (AUTO) 96.8 % (42.0-75.0); PLATELET COUNT 276 X10^3/uL (150.0-450.0); RED BLOOD COUNT 4.18 X10^6/uL (4.7-6.0); RED CELL DISTRIBUTION WIDTH 16.2 % (11.6-16.5); WHITE BLOOD COUNT 8.1 X10^3/uL (3.6-10.0)
[2020-12-30 09:58] LABS: ALANINE AMINOTRANSFERASE 12 Units/L (12-78); ALBUMIN 3.4 g/dL (3.4-5.0); ALKALINE PHOSPHATASE 97 Units/L (46-116); ASPARTATE AMINO TRANSFERASE 10 Units/L (15-37); BLOOD UREA NITROGEN 16 mg/dL (7-18); CALCIUM 9.4 mg/dL (8.5-10.1); CARBON DIOXIDE 36.5 mmol/L (21-32); CHLORIDE 98 mmol/L (98-107); COR NA(FOR HYPERGLY) 141 mmol/L (136-145); CREATININE 1.23 mg/dL (0.70-1.30); SODIUM 139 mmol/L (136-145); TOTAL PROTEIN 7.5 g/dL (6.4-8.2); eGFR NON BLACK RACES > 60 (>60)
[2020-12-30 10:03] LABS: PLATELET MORPHOLOGY COMMENT NORMAL (NORMAL)
--- NOTE | 2020-12-30 15:59 | RAD ---
CHEST, 1 VIEWHISTORY: PRE OP EEG CLEARANCEStudy: AP view of the chest.Comparison:NoneFindings:The cardiomediastinal silhouette is normal. No focal consolidations, pleural effusions or pneumothorax. Osseous structures demonstrate no acute abnormality. Bilateral hyperexpansion and interstitial prominence.IMPRESSION:1. No acute cardiopulmonary process.2. Findings of COPD.Electronically signed by: MITCH OLEA (Dec 30, 2020 15:57:05)
[2020-12-30] MEDS: MUCOMYST (RESPIRATORY USE ONLY) NEB SCH (17:18)
[2020-12-30] MEDS ORDERED: STERILE WATER IRRIGATION IR ONE (17:25)
[2020-12-31] MEDS: XOPENEX 1.25 MG/3 ML NEBULE NEB SCH ×4 (01:25→17:30)
[2020-12-31] MEDS: MUCOMYST (RESPIRATORY USE ONLY) NEB SCH ×4 (01:25→17:30)
[2020-12-31 05:16] LABS: BASOPHILS % (AUTO) 0.2 % (0.2-1.0); HEMATOCRIT 30.5 % (42.0-54.0); LYMPHOCYTES # (AUTO) 0.2 X10^3/uL (1.3-2.9); LYMPHOCYTES % (AUTO) 1.3 % (21.0-51.0); MEAN CORPUSCULAR HGB CONC 32.7 g/dL (33.0-35.0); MEAN CORPUSCULAR VOLUME 85.6 fL (80.0-100.0); MEAN PLATELET VOLUME 6.5 fL (7.4-11.0); MONOCYTES # (AUTO) 0.6 x10^3/uL (0.3-0.8); NEUTROPHILS # (AUTO) 13.3 x10^3/uL (2.2-4.8); NEUTROPHILS % (AUTO) 94.5 % (42.0-75.0); PLATELET COUNT 252 X10^3/uL (150.0-450.0); RED BLOOD COUNT 3.57 X10^6/uL (4.7-6.0); RED CELL DISTRIBUTION WIDTH 16.3 % (11.6-16.5)
[2020-12-31 05:27] LABS: ALANINE AMINOTRANSFERASE 13 Units/L (12-78); ALBUMIN 2.6 g/dL (3.4-5.0); ALKALINE PHOSPHATASE 73 Units/L (46-116); ASPARTATE AMINO TRANSFERASE 14 Units/L (15-37); BLOOD UREA NITROGEN 16 mg/dL (7-18); CALCIUM 8.7 mg/dL (8.5-10.1); CARBON DIOXIDE 39.3 mmol/L (21-32); CHLORIDE 101 mmol/L (98-107); COR CA(FOR HYPOALB) 9.8 mg/dL (8.5-10.1); COR NA(FOR HYPERGLY) 140 mmol/L (136-145); SODIUM 139 mmol/L (136-145); TOTAL PROTEIN 5.8 g/dL (6.4-8.2); eGFR NON BLACK RACES > 60 (>60)
[2020-12-31] MEDS: SOLU-Medrol 125 MG VIAL IVP SCH ×3 (05:38→21:44)
[2020-12-31 05:49] LABS: BAND NEUTROPHILS % 1 % (0-10); PLATELET MORPHOLOGY COMMENT NORMAL (NORMAL)
[2020-12-31] MEDS: PULMICORT NEB TX 0.5 MG NEB SCH ×2 (08:30→20:33)
[2020-12-31 08:36] LABS: ABG BASE EXCESS 15.7 mmol/L (-2.0-2.0)
[2020-12-31 08:38] LABS: ABG ALLEN TEST POS; ABG HCO3 42.8 mmol/L (22-26)
[2020-12-31 08:54] LABS: CKMB % 5.3 % (<4); CREATINE KINASE 34 Units/L (39-308); CREATINE KINASE MB 1.8 ng/mL (0-4.0); TROPONIN I < 0.02 ng/mL (0-1.5)
[2020-12-31] MEDS: PROTONIX INJ 40 MG VIAL IVP SCH ×2 (09:12→21:44)
[2020-12-31] MEDS: NICOTINE PATCH TD SCH (09:12)
[2020-12-31] MEDS: LEVAQUIN PREMIX IV 500 MG 500 MG/100 ML BAG IV SCH (09:15)
[2020-12-31] MEDS: ROCEPHIN 1 GRAM IV PREMIX 1 G/50 ML IV.SOLN. IV SCH (09:15)
[2020-12-31] MEDS ORDERED: DIPRIVAN VIAL 20 ML ONE (09:20)
[2020-12-31] MEDS: SYNTHROID 75 mcg TAB PO SCH ×2 (09:22→10:22)
[2020-12-31] MEDS: ROBITUSSIN DM PO SCH ×4 (09:22→21:44)
[2020-12-31] MEDS: LOPRESSOR TAB 25 MG PO SCH ×3 (09:22→21:44)
--- NOTE | 2020-12-31 09:23 | RAD ---
HISTORYPneumonia, COPDSTUDYChest AP [id number]/20/2021FINDINGSThe heart is within normal limits in size. The bety are normal. The lungs are generally hyperinflated. Emphysematous interstitial lung changes are present bilaterally, stable. There is some subsegmental atelectasis in the right lung base. No pleural effusions or pneumothoraces are identified. Bony thorax is unremarkable.IMPRESSIONLungs hyperinflated but free of acute infiltratesEmphysematous and interstitial lung changes which along with the hyperinflation suggest emphysematous COPDElectronically signed by: LUCI HUYNH (Dec 31, 2020 09:20:51)
[2020-12-31] MEDS: NS 1000 ML 1,000 ML IV SCH ×2 (17:13→22:04)
[2020-12-31] MEDS: NORCO 10/325 TAB PO PRN (18:10)
[2020-12-31] MEDS: MORPHINE SULFATE INJ 2 MG INJ IVP PRN (19:09)
[2021-01-01] MEDS: XOPENEX 1.25 MG/3 ML NEBULE NEB SCH ×4 (01:16→16:39)
[2021-01-01] MEDS: MUCOMYST (RESPIRATORY USE ONLY) NEB SCH ×4 (01:16→16:39)
[2021-01-01] MEDS: SOLU-Medrol 125 MG VIAL IVP SCH ×3 (06:15→21:59)
[2021-01-01] MEDS: PULMICORT NEB TX 0.5 MG NEB SCH ×2 (08:56→20:55)
--- NOTE | 2021-01-01 10:08 | RAD ---
HISTORYPNEUMONIA, COPD, RESP FAILURESTUDYCHEST x-ray, 1 VIEWCOMPARISONX-ray 12/31/2020FINDINGSProminent COPD. Persistent mild density at the left lung base is probably small pleural effusion and atelectasis but mild pneumonia is not excluded. Improving atelectasis is suspected in the right middle lobe. There appear to be skin shadows projected overlying both upper lobes.IMPRESSIONProbable small left pleural effusion with mild atelectasis or pneumonia at the left lung base. Appearance is unchanged.Prominent COPD.Electronically signed by: Donavan Ortiz (Jan 01, 2021 10:06:18)
[2021-01-01] MEDS: NICOTINE PATCH TD SCH (10:09)
[2021-01-01] MEDS: PROTONIX INJ 40 MG VIAL IVP SCH ×2 (10:09→21:59)
[2021-01-01] MEDS: ROBITUSSIN DM PO SCH ×4 (10:12→21:59)
[2021-01-01 10:13] LABS: BASOPHILS % (AUTO) 0 % (0.2-1.0); HEMATOCRIT 32.9 % (42.0-54.0); HEMOGLOBIN 10.6 g/dL (13.5-18.0); LYMPHOCYTES # (AUTO) 0.1 X10^3/uL (1.3-2.9); LYMPHOCYTES % (AUTO) 0.9 % (21.0-51.0); MEAN CORPUSCULAR HEMOGLOBIN 27.8 pg (27.0-34.0); MEAN CORPUSCULAR HGB CONC 32.3 g/dL (33.0-35.0); MEAN CORPUSCULAR VOLUME 85.9 fL (80.0-100.0); MEAN PLATELET VOLUME 6.4 fL (7.4-11.0); MONOCYTES # (AUTO) 0.5 x10^3/uL (0.3-0.8); MONOCYTES % (AUTO) 3.5 % (0.0-13.0); NEUTROPHILS # (AUTO) 13.1 x10^3/uL (2.2-4.8); NEUTROPHILS % (AUTO) 95.6 % (42.0-75.0); PLATELET COUNT 253 X10^3/uL (150.0-450.0); RED BLOOD COUNT 3.83 X10^6/uL (4.7-6.0); RED CELL DISTRIBUTION WIDTH 16.3 % (11.6-16.5); WHITE BLOOD COUNT 13.7 X10^3/uL (3.6-10.0)
[2021-01-01] MEDS: ROCEPHIN 1 GRAM IV PREMIX 1 G/50 ML IV.SOLN. IV SCH (10:13)
[2021-01-01] MEDS: SYNTHROID 75 mcg TAB PO SCH (10:13)
[2021-01-01] MEDS: LOPRESSOR TAB 25 MG PO SCH ×2 (10:13→21:59)
[2021-01-01] MEDS: NORCO 10/325 TAB PO PRN ×2 (10:17→22:00)
[2021-01-01] MEDS: LEVAQUIN PREMIX IV 500 MG 500 MG/100 ML BAG IV SCH (10:30)
[2021-01-01 10:31] LABS: ALANINE AMINOTRANSFERASE 26 Units/L (12-78); ALBUMIN 2.9 g/dL (3.4-5.0); ALKALINE PHOSPHATASE 80 Units/L (46-116); ASPARTATE AMINO TRANSFERASE 20 Units/L (15-37); BLOOD UREA NITROGEN 25 mg/dL (7-18); CALCIUM 8.7 mg/dL (8.5-10.1); CARBON DIOXIDE 37.6 mmol/L (21-32); CHLORIDE 102 mmol/L (98-107); COR CA(FOR HYPOALB) 9.6 mg/dL (8.5-10.1); COR NA(FOR HYPERGLY) 141 mmol/L (136-145); CREATININE 1.03 mg/dL (0.70-1.30); SODIUM 141 mmol/L (136-145); TOTAL PROTEIN 6.1 g/dL (6.4-8.2); eGFR NON BLACK RACES > 60 (>60)
[2021-01-01 10:37] LABS: PLATELET MORPHOLOGY COMMENT NORMAL (NORMAL)
[2021-01-02] MEDS: MUCOMYST (RESPIRATORY USE ONLY) NEB SCH ×3 (00:05→13:36)
[2021-01-02] MEDS: XOPENEX 1.25 MG/3 ML NEBULE NEB SCH ×3 (00:05→13:36)
[2021-01-02 05:50] LABS: BASOPHILS % (AUTO) 0.1 % (0.2-1.0); HEMATOCRIT 30.7 % (42.0-54.0); LYMPHOCYTES # (AUTO) 0.2 X10^3/uL (1.3-2.9); LYMPHOCYTES % (AUTO) 1.1 % (21.0-51.0); MEAN CORPUSCULAR HGB CONC 32.5 g/dL (33.0-35.0); MEAN CORPUSCULAR VOLUME 86.1 fL (80.0-100.0); MEAN PLATELET VOLUME 6.6 fL (7.4-11.0); MONOCYTES # (AUTO) 0.4 x10^3/uL (0.3-0.8); MONOCYTES % (AUTO) 2.9 % (0.0-13.0); NEUTROPHILS # (AUTO) 13.6 x10^3/uL (2.2-4.8); NEUTROPHILS % (AUTO) 95.9 % (42.0-75.0); PLATELET COUNT 219 X10^3/uL (150.0-450.0); RED BLOOD COUNT 3.56 X10^6/uL (4.7-6.0); RED CELL DISTRIBUTION WIDTH 16.1 % (11.6-16.5); WHITE BLOOD COUNT 14.2 X10^3/uL (3.6-10.0)
[2021-01-02] MEDS: SOLU-Medrol 125 MG VIAL IVP SCH ×2 (05:50→13:51)
[2021-01-02 06:01] LABS: ALANINE AMINOTRANSFERASE 25 Units/L (12-78); ALBUMIN 2.7 g/dL (3.4-5.0); ALKALINE PHOSPHATASE 71 Units/L (46-116); ASPARTATE AMINO TRANSFERASE 15 Units/L (15-37); BLOOD UREA NITROGEN 32 mg/dL (7-18); CALCIUM 8.4 mg/dL (8.5-10.1); CARBON DIOXIDE 37.7 mmol/L (21-32); CHLORIDE 105 mmol/L (98-107); COR CA(FOR HYPOALB) 9.4 mg/dL (8.5-10.1); COR NA(FOR HYPERGLY) 141 mmol/L (136-145); CREATININE 1.05 mg/dL (0.70-1.30); SODIUM 141 mmol/L (136-145); TOTAL PROTEIN 5.6 g/dL (6.4-8.2); eGFR NON BLACK RACES > 60 (>60)
--- NOTE | 2021-01-02 06:27 | RAD ---
HISTORYPNEUMONIA COPDSTUDYCHEST, 1 [id number]/22/2021.TECHNIQUEAP view of the chestFINDINGSCardiac and mediastinal contours are within normal limits. Lungs are hyperexpanded with scattered interstitial opacities. Blunted left costophrenic sulcus with mild patchy left peripheral base opacity appears similar. No pneumothorax.IMPRESSIONNo significant change. Emphysema. Small left pleural effusion versus pleural scarring. Similar appearing mild patchy left peripheral base opacity may represent atelectasis, fibrosis, or pneumonia.Electronically signed by: Estuardo Nuñez (Jan 02, 2021 06:25:52)
[2021-01-02] MEDS: MORPHINE SULFATE INJ 2 MG INJ IVP PRN (06:32)
[2021-01-02 06:38] LABS: PLATELET MORPHOLOGY COMMENT NORMAL (NORMAL)
[2021-01-02] MEDS: PULMICORT NEB TX 0.5 MG NEB SCH (09:05)
[2021-01-02] MEDS: ROBITUSSIN DM PO SCH ×2 (11:00→13:50)
[2021-01-02] MEDS: SYNTHROID 75 mcg TAB PO SCH (11:02)
[2021-01-02] MEDS: LOPRESSOR TAB 25 MG PO SCH (11:02)
[2021-01-02] MEDS: ROCEPHIN 1 GRAM IV PREMIX 1 G/50 ML IV.SOLN. IV SCH (11:03)
[2021-01-02] MEDS: LEVAQUIN PREMIX IV 500 MG 500 MG/100 ML BAG IV SCH (11:03)
[2021-01-02] MEDS: PROTONIX INJ 40 MG VIAL IVP SCH (11:03)
[2021-01-02] MEDS: NICOTINE PATCH TD SCH (11:03)
[2021-01-02 12:29] VITALS: BP 139/72
== END 2021-01-02 14:50 | disposition home or self-care (01) | DRG 178 ==
LOC: OBS 13:58 → MED/SURG 15:44
PROVIDERS: ADMIT Internal Medicine; ATTEND Internal Medicine
DX: Z20.822 Contact with and (suspected) exposure to COVID-19; Z92.21 Personal history of antineoplastic chemotherapy; Z85.51 Personal history of malignant neoplasm of bladder; Z85.21 Personal history of malignant neoplasm of larynx; J44.1 Chronic obstructive pulmonary disease with (acute) exacerbation; K29.60 Other gastritis without bleeding; I48.91 Unspecified atrial fibrillation; R94.31 Abnormal electrocardiogram [ECG] [EKG]; J15.1 Pneumonia due to Pseudomonas; J15.0 Pneumonia due to Klebsiella pneumoniae; I10 Essential (primary) hypertension; K22.2 Esophageal obstruction; R13.11 Dysphagia, oral phase; R06.02 Shortness of breath

== ENCOUNTER 2021-01-15 19:41 | Inpatient (IN) ==
[2021-01-15] MEDS ORDERED: DUONEB 0.5 MG/3 MG (3 mL) NEB ONE ×2 (20:00→20:04)
[2021-01-15] MEDS ORDERED: SOLU-Medrol 125 MG VIAL IVP ONE (20:00)
[2021-01-15 20:07] VITALS: BMI 22.1
[2021-01-15 20:21] LABS: ABG BASE EXCESS 13.1 mmol/L (-2.0-2.0)
[2021-01-15 20:22] LABS: ABG ALLEN TEST POS; ABG HCO3 40.2 mmol/L (22-26)
[2021-01-15 20:22] LABS: BASOPHILS % (AUTO) 0.4 % (0.2-1.0); HEMATOCRIT 32.8 % (42.0-54.0); HEMOGLOBIN 10.7 g/dL (13.5-18.0); LYMPHOCYTES # (AUTO) 0.2 X10^3/uL (1.3-2.9); LYMPHOCYTES % (AUTO) 1.4 % (21.0-51.0); MEAN CORPUSCULAR HEMOGLOBIN 27.3 pg (27.0-34.0); MEAN CORPUSCULAR HGB CONC 32.7 g/dL (33.0-35.0); MEAN CORPUSCULAR VOLUME 83.4 fL (80.0-100.0); MEAN PLATELET VOLUME 7.1 fL (7.4-11.0); MONOCYTES # (AUTO) 0.8 x10^3/uL (0.3-0.8); MONOCYTES % (AUTO) 6.9 % (0.0-13.0); NEUTROPHILS # (AUTO) 10.6 x10^3/uL (2.2-4.8); NEUTROPHILS % (AUTO) 91.3 % (42.0-75.0); PLATELET COUNT 220 X10^3/uL (150.0-450.0); RED BLOOD COUNT 3.93 X10^6/uL (4.7-6.0); RED CELL DISTRIBUTION WIDTH 16.6 % (11.6-16.5); WHITE BLOOD COUNT 11.6 X10^3/uL (3.6-10.0)
[2021-01-15] MEDS ORDERED: CARDIZEM INJ 50 MG VIAL IVP ONE (20:22)
--- NOTE | 2021-01-15 20:23 | DR.SOBA ---
HPI Time Seen Time Seen by Provider: 01/15/21 20:00 Primary Care Physician Primary Care Physician: TALA LAWSON Complaints Chief Complaint:: PT STATES THAT HE WAS RECENTLY ADMITTED IN THE HOSPITA WITH PNU. HAS BEEN HOME SINCE Tuesday01/09/21 AND HAS BEEN GETTING WORSE WITH INCREASING SHORTNESS OF BREATH. PT HAS A PRODUCTIVE COUGH WITH THICK YELLOW GREEN SPUTUM. WEARS HOME O2 AND PER EMS THE HIGHEST THEY OULD GET HIM WAS 87% ON 4L PER NASAL CANNULA. PT NOTED TO HAVE COARSE BREATH SOUNDS. COVID-19 Coronavirus risk:travel/contact w/high risk person: No Has patient experienced Coronavirus symptoms: Yes Coronavirus symptoms experienced: Coughing and Shortness of Breath Reviewed Nurses Notes Reviewed: Yes Source History Provided: Patient and EMS Mode of Arrival Mode of Arrival: EMS Timing Onset of Chief Complaint: 01/09/21 PMH PMH Past Medical History: Yes Past Medical History: Arthritis, COPD, GERD, Hypertension and Hypothyroidism Past Medical History Comment: EMPHYSEMA, HX OF THROAT AND BLADDER CA Past Surgical History: Yes Surgical History: AAA Repair, Ortho Surgery and Other Family History History of Family Medical Conditions: No Family Medical History: Hypertension Social History Does patient currently use any type of tobacco product: No Have you used tobacco products in the last 12 months: No Type of Tobacco Use: None Does any household member use tobacco: No Alcohol Use: None Do you use any recreational Drugs:: No Lives With: Family Lives Where: Home Travel Risk Coronavirus risk:travel/contact w/high risk person: No Has patient experienced Coronavirus symptoms: Yes Coronavirus symptoms experienced: Coughing and Shortness of Breath Infectious screening In the last 2 months have you had wt loss of >10#?: NO Have you had fever, night sweats or hemotysis?: No Have you traveled outside the country in the last 6 months?: No Isolation: Droplet ROS Review of Systems Constitutional: See HPI, Malaise and Fatigue Eyes: No Symptoms Reported ENTM: No Symptoms Reported Respiratoy: See HPI, Productive Cough and Short of Breath Cardiovascular: No Symptoms Reported Gastrointestinal/Abdominal: No Symptoms Reported Genitourinary: No Symptoms Reported Neurological: No Symptoms Reported Musculoskeletal: No Symptoms Reported Integumentary: No Symptoms Reported Hematologic/Lymphatic: No Symptoms Reported Endocrine: No Symptoms Reported Psychiatric: No Symptoms Reported All Other Systems: Reviewed and Negative PE Vital Signs Vitals: Temperature 98.8 F Pulse Rate 112 Respiratory Rate 35 Blood Pressure [Right Arm] 139/72 Blood Pressure 144/79 O2 Sat by Pulse Oximetry 90 General Limitations: No Limitations General Appearance: Alert and In No Apparent Distress Head Head Exam: Normal Inspection Eyes Eye exam: Normal Appearance ENT ENT Exam: Normal Exam Neck Neck Exam: Normal Inspection Chest Chest Inspection: Normal Inspection Respiratory Respiratory Exam: Accessory Muscle Use and Prolonged Expiratory Phase Respiratory Exam: Bilateral: Wheezing and Bilateral: Decreased Breath Sounds and Upper: Wheezing Cardiovascular Cardiovascular Exam: Normal Rhythm and Tachycardia Abdominal Exam Abdominal Exam: Normal Inspection, Normal Bowel Sounds and Soft Extremities Extremities Exam: Normal Inspection Back Back Exam: Normal Inspection Neurologic Neurological Exam: Alert and Oriented X3 Psychiatric Psychiatric Exam: Normal Affect and Normal Mood Skin Skin Exam: Warm, Dry, Intact and Normal Color MDM Differential Diagnosis Differential Diagnosis: Anxiety, Asthma, Bronchitis, Cardiogenic shock, CHF, COPD, Dysrhythmia, Hypertensive Emergency, Hyperventilation, Hyponatremia, Mycardial Infarction, Panic Attack, Pneumonia, Pneumothorax, PSVT, Pulmonary embolism, Respiratory Failure, Respiratory Insufficiency, Sinusitis, URI and Other COURSE Treatment Treatment: COPD will check ABG, give some diltiazem, solumedrol, duoneb, pt on eliquis doubt PE, doubt COVID as has had multiple neg tests Reevaluation 1st: Improved (COPD, pt feels like still SOB but improving discussed with Frutado, will admit) 2nd: Improved 3rd: Unchanged (COVID positive, will begin treatment) ROR Labs Reviewed Laboratory Results Reviewed?: Yes Result Diagrams: 01/15/21 20:11 01/15/21 20:11 Laboratory: WBC 11.6 X10^3/uL (3.6-10.0) H 01/15/21 20:11 RBC 3.93 X10^6/uL (4.7-6.0) L 01/15/21 20:11 Hgb 10.7 g/dL (13.5-18.0) L 01/15/21 20:11 Hct 32.8 % (42.0-54.0) L 01/15/21 20:11 MCV 83.4 fL (80.0-100.0) 01/15/21 20:11 MCH 27.3 pg (27.0-34.0) 01/15/21 20:11 MCHC 32.7 g/dL (33.0-35.0) L 01/15/21 20:11 RDW 16.6 % (11.6-16.5) H 01/15/21 20:11 Plt Count 220 X10^3/uL (150.0-450.0) 01/15/21 20:11 Plt Count Comment Adequate (ADEQUATE) 01/15/21 20:11 MPV 7.1 fL (7.4-11.0) L 01/15/21 20:11 Neut % (Auto) 91.3 % (42.0-75.0) H 01/15/21 20:11 Lymph % (Auto) 1.4 % (21.0-51.0) L 01/15/21 20:11 Tyrrell % (Auto) 6.9 % (0.0-13.0) 01/15/21 20:11 Eos % (Auto) 0.0 % (0.9-2.9) L 01/15/21 20:11 Baso % (Auto) 0.4 % (0.2-1.0) 01/15/21 20:11 Neut # (Auto) 10.6 x10^3/uL (2.2-4.8) H 01/15/21 20:11 Lymph # (Auto) 0.2 X10^3/uL (1.3-2.9) L 01/15/21 20:11 Tyrrell # (Auto) 0.8 x10^3/uL (0.3-0.8) 01/15/21 20:11 Eos # (Auto) 0.0 x10^3/uL (0.0-0.2) 01/15/21 20:11 Baso # (Auto) 0.0 X10^3/uL (0.0-0.1) 01/15/21 20:11 Absolute Nucleated RBC 0.1 /100WBC 01/15/21 20:11 Total Counted 100 01/15/21 20:11 Neutrophils % (Manual) 90 % (39-76) H 01/15/21 20:11 Lymphocytes % (Manual) 8 % (13-43) L 01/15/21 20:11 Monocytes % (Manual) 2 % (4-9) L 01/15/21 20:11 Plt Morphology Comment Normal (NORMAL) 01/15/21 20:11 RBC Morphology Normal (NORMAL) 01/15/21 20:11 Sample Site Lr 01/15/21 20:15 ABG pH 7.420 (7.35-7.45) 01/15/21 20:15 ABG pCO2 62.0 mmHg (35.0-45.0) H* 01/15/21 20:15 ABG pO2 50.0 mmHg (80.0-100.0) L 01/15/21 20:15 ABG HCO3 40.2 mmol/L (22-26) H* 01/15/21 20:15 ABG O2 Saturation 86.0 % (90-100) L 01/15/21 20:15 ABG Base Excess 13.1 mmol/L (-2.0-2.0) H 01/15/21 20:15 Ed Test Pos 01/15/21 20:15 A-a Gradient 129.0 mmHg 01/15/21 20:15 FiO2 36.0 01/15/21 20:15 Blood Gas Comments Mignon well ae 01/15/21 20:15 Sodium 141 mmol/L (136-145) 01/15/21 20:11 Corrected Sodium 141 mmol/L (136-145) 01/15/21 20:11 Potassium 4.4 mmol/L (3.5-5.1) 01/15/21 20:11 Chloride 98 mmol/L (98-107) 01/15/21 20:11 Carbon Dioxide 36.5 mmol/L (21-32) H 01/15/21 20:11 BUN 21 mg/dL (7-18) H 01/15/21 20:11 Creatinine 1.05 mg/dL (0.70-1.30) 01/15/21 20:11 Est GFR (MDRD) Af Amer > 60 (>60) 01/15/21 20:11 Est GFR (MDRD) Non-Af > 60 (>60) 01/15/21 20:11 Glucose 111 mg/dL (65-99) H 01/15/21 20:11 Calcium 8.5 mg/dL (8.5-10.1) 01/15/21 20:11 Corrected Calcium 9.6 mg/dL (8.5-10.1) 01/15/21 20:11 Total Bilirubin 0.40 mg/dL (0.2-1.0) 01/15/21 20:11 AST 24 Units/L (15-37) 01/15/21 20:11 ALT 16 Units/L (12-78) 01/15/21 20:11 Alkaline Phosphatase 78 Units/L (46-116) 01/15/21 20:11 Creatine Kinase 42 Units/L (39-308) 01/15/21 20:11 CK-MB (CK-2) 2.3 ng/mL (0-4.0) 01/15/21 20:11 CK/CKMB % Calc 5.5 % (<4) 01/15/21 20:11 Troponin I 0.13 ng/mL (0-1.5) 01/15/21 20:11 B-Natriuretic Peptide 184 pg/mL (0-79) H 01/15/21 20:11 Total Protein 6.8 g/dL (6.4-8.2) 01/15/21 20:11 Albumin 2.6 g/dL (3.4-5.0) L 01/15/21 20:11 Globulin 4.2 g/dL (2.5-4.5) 01/15/21 20:11 Albumin/Globulin Ratio 0.6 Ratio (1.1-2.1) L 01/15/21 20:11 SARS-CoV-2 (PCR) Positive (NEGATIVE) A 01/15/21 20:12 Influenza Type A (PCR) Negative (NEGATIVE) 01/15/21 20:12 Influenza Type B (PCR) Negative (NEGATIVE) 01/15/21 20:12 RSV (PCR) Negative (NEGATIVE) 01/15/21 20:12 Other Results Comments: labs ok, COVID positive XRAY XRAY Interpreted by: Radiologist X-ray Results: stable CXR, NAP EKG Rate: 115 [place]: RAD Rhythm: ST Hypertrophy: BRETT and LVH ST: Normal Opioid Opioid Risk Tool Age (Alexsander box if 16-45): No History of Preadolescent Sexual Abuse: No Total: 0 Total Score Risk Category: Low Risk Copyright: [facility] predicting aberrant behaviors Diagnosis Discharge Problem: COPD with acute bronchitis, Hypoxia, Chronic respiratory failure with hypoxia and hypercapnia, History of throat cancer, History of bladder cancer COPD (chronic obstructive pulmonary disease) Qualifiers: COPD type: COPD with acute exacerbation Qualified Code(s): J44.1 - Chronic obstructive pulmonary disease with (acute) exacerbation Dyspnea Qualifiers: Dyspnea type: unspecified Qualified Code(s): R06.00 - Dyspnea, unspecified
[2021-01-15] MEDS ORDERED: SOLU-Medrol 125 MG VIAL ONE (20:29)
[2021-01-15] MEDS ORDERED: CARDIZEM INJ 50 MG VIAL ONE (20:29)
[2021-01-15] MEDS ORDERED: NORCO 5/325 MG TAB PO PRN (20:38)
[2021-01-15] MEDS ORDERED: NORCO 5/325 MG TAB ONE (20:38)
[2021-01-15 20:59] LABS: ALANINE AMINOTRANSFERASE 16 Units/L (12-78); ALBUMIN 2.6 g/dL (3.4-5.0); ALKALINE PHOSPHATASE 78 Units/L (46-116); ASPARTATE AMINO TRANSFERASE 24 Units/L (15-37); BLOOD UREA NITROGEN 21 mg/dL (7-18); CALCIUM 8.5 mg/dL (8.5-10.1); CARBON DIOXIDE 36.5 mmol/L (21-32); CHLORIDE 98 mmol/L (98-107); CKMB % 5.5 % (<4); COR CA(FOR HYPOALB) 9.6 mg/dL (8.5-10.1); COR NA(FOR HYPERGLY) 141 mmol/L (136-145); CREATINE KINASE 42 Units/L (39-308); CREATINE KINASE MB 2.3 ng/mL (0-4.0); CREATININE 1.05 mg/dL (0.70-1.30); SODIUM 141 mmol/L (136-145); TOTAL PROTEIN 6.8 g/dL (6.4-8.2); TROPONIN I 0.13 ng/mL (0-1.5); eGFR NON BLACK RACES > 60 (>60)
--- NOTE | 2021-01-15 21:03 | RAD ---
HISTORYSOB, TACHYCARDIASTUDYCHEST, 1 [id number]/23/2021FINDINGSThe cardiomediastinal silhouette is stable. Similar hyperinflation. Chronic appearing interstitial markings. No definite acute airspace disease. No large effusion. The bony thorax appears intact.IMPRESSIONStable chest.Electronically signed by: LUCI HUYNH (Jan 15, 2021 21:00:52)
[2021-01-15 21:18] LABS: PLATELET MORPHOLOGY COMMENT NORMAL (NORMAL)
[2021-01-15] MEDS ORDERED: REMDESIVIR 200 MG in NS 250 ML IV 250 ML IV ONE (21:47)
[2021-01-15] MEDS ORDERED: ZESTRIL TAB 10 MG PO PRN (21:47)
[2021-01-15] MEDS ORDERED: LASIX PO PRN (21:47)
[2021-01-15] MEDS ORDERED: ~Z-PAK 5 DAY (ZITHROMAX) PO ONE (21:47)
[2021-01-15] MEDS ORDERED: REMDESIVIR IV ONE (23:36)
[2021-01-15] MEDS ORDERED: NS 250 ML IV 0 ML IV ONE (23:36)
[2021-01-15] MEDS: SOLU-Medrol 40 MG VIAL IVP SCH (23:42)
[2021-01-15] MEDS ORDERED: ZITHROMAX TAB 250 MG PO ONE (23:52)
[2021-01-15] MEDS: ZITHROMAX TAB 250 MG PO ONE (23:54)
[2021-01-16] MEDS ORDERED: DUONEB 0.5 MG/3 MG (3 mL) NEB SCH
[2021-01-16] MEDS ORDERED: XOPENEX 1.25 MG/3 ML NEBULE NEB ONE ×2 (00:08→04:57)
[2021-01-16] MEDS ORDERED: ZITHROMAX INJ 500 MG VIAL 500 MG in NS 250 ML IV 250 ML IV SCH (00:09)
[2021-01-16] MEDS: XOPENEX 1.25 MG/3 ML NEBULE NEB SCH ×4 (00:12→17:30)
[2021-01-16] MEDS: ZITHROMAX TAB 250 MG PO ONE (00:19)
[2021-01-16] MEDS ORDERED: ZITHROMAX INJ 500 MG VIAL IV ONE (00:21)
[2021-01-16] MEDS: SOLU-Medrol 40 MG VIAL IVP SCH ×3 (05:48→22:10)
[2021-01-16] MEDS: PULMICORT NEB TX 0.5 MG NEB SCH ×2 (08:20→21:00)
[2021-01-16] MEDS ORDERED: CARDIZEM INJ 50 MG VIAL IVP ONE ×2 (08:38→08:55)
[2021-01-16] MEDS ORDERED: CARDIZEM INJ 50 MG VIAL ONE (08:40)
[2021-01-16] MEDS ORDERED: LANOXIN INJ IVP ONE (09:02)
[2021-01-16] MEDS: PROTONIX TAB 40 MG PO SCH ×2 (09:17→20:36)
[2021-01-16] MEDS: LOPRESSOR TAB 25 MG PO SCH ×2 (09:17→20:36)
[2021-01-16] MEDS: SYNTHROID 75 mcg TAB PO SCH (09:18)
[2021-01-16 09:31] LABS: BASOPHILS % (AUTO) 0 % (0.2-1.0); HEMATOCRIT 31.9 % (42.0-54.0); HEMOGLOBIN 10.4 g/dL (13.5-18.0); LYMPHOCYTES # (AUTO) 0.1 X10^3/uL (1.3-2.9); MEAN CORPUSCULAR HEMOGLOBIN 27.2 pg (27.0-34.0); MEAN CORPUSCULAR HGB CONC 32.6 g/dL (33.0-35.0); MEAN CORPUSCULAR VOLUME 83.4 fL (80.0-100.0); MONOCYTES # (AUTO) 0.3 x10^3/uL (0.3-0.8); MONOCYTES % (AUTO) 3.8 % (0.0-13.0); NEUTROPHILS # (AUTO) 6.5 x10^3/uL (2.2-4.8); NEUTROPHILS % (AUTO) 95.2 % (42.0-75.0); PLATELET COUNT 208 X10^3/uL (150.0-450.0); RED BLOOD COUNT 3.82 X10^6/uL (4.7-6.0); RED CELL DISTRIBUTION WIDTH 16.7 % (11.6-16.5); WHITE BLOOD COUNT 6.8 X10^3/uL (3.6-10.0)
[2021-01-16 09:42] LABS: ALANINE AMINOTRANSFERASE 14 Units/L (12-78); ALBUMIN 2.5 g/dL (3.4-5.0); ALKALINE PHOSPHATASE 78 Units/L (46-116); ASPARTATE AMINO TRANSFERASE 20 Units/L (15-37); BLOOD UREA NITROGEN 17 mg/dL (7-18); CALCIUM 8.8 mg/dL (8.5-10.1); CARBON DIOXIDE 39.2 mmol/L (21-32); CHLORIDE 101 mmol/L (98-107); COR NA(FOR HYPERGLY) 145 mmol/L (136-145); CREATININE 0.84 mg/dL (0.70-1.30); SODIUM 144 mmol/L (136-145); TOTAL PROTEIN 6.6 g/dL (6.4-8.2); eGFR NON BLACK RACES > 60 (>60)
[2021-01-16] MEDS: NORCO 10/325 TAB PO PRN ×2 (09:58→17:25)
[2021-01-16 10:07] LABS: ANISOCYTOSIS SLIGHT; BAND NEUTROPHILS % 1 % (0-10); PLATELET MORPHOLOGY COMMENT NORMAL (NORMAL)
[2021-01-16] MEDS: BROVANA IN SCH ×2 (10:48→21:00)
--- NOTE | 2021-01-16 13:58 | DR.H&P ---
H&P - History & Physical for Day of: H&P Date: 01/15/21 - Chief Complaint Chief Complaint: SOB, WEAKNESS - History of Present Illness History of Present Illness: PT IS 70 WM ER ADMISSION WITH RESPIRATORY DISTRESS. PT HAD HOME VISIT LAST PM AND FOUND IN MARKED RESP DISTRESS, EMS NOTIFIED FOR TRANSPORT, PT WAS ON HOMEO2 AT 4L WITH O2 SAT 78%. PT WAS RECENTLY IN [facility] PNEUMONIA. PT DENIES FEVER OR KNOWN COVID EXPOSURE. PT TESTED + FOR COVID 19 IN ER. PT HAS PMH OF RESP FAILURE, COPD, HTN, AFIB, THROAT AND BLADDER CANCER, BPH, HYPOTHYROIDISM AND OA. PT ADMITTED FOR TREATMENT OF ACUTE ILLNESS - Past Medical History Past Medical History: Hypertension, Hypothyroidism, COPD, GERD, Arthritis Additional Medical History: THROAT CANCER- IN REMISSION. BLADDER CANCER- FOLLOWED BY DR SANTA - Past Surgical History Surgical History: AAA Repair, Ortho Surgery, Other Additional Surgical History: PT HAS PEG TUBE PLACEMENT AND REMOVAL, THROAT CANCER SURGERY. BLADDER CANCER SURGERY - Family History Family Medical History: Hypertension - Social History Does patient currently use any type of tobacco product: No Have you used tobacco products in the last 12 months: No Type of Tobacco Use: None Does any household member use tobacco: No Alcohol Use: None Drug Use: None - Medications Home Medications: No Known Drug Allergies Allergy (Verified 02/04/20 11:09) - Review of Systems Constitutional: Weakness Eyes: No Symptoms Reported ENT: No Symptoms Reported Respiratory: Cough, Shortness of Breath, SOB with Excertion, Pleuritic Pain, Sputum, Wheezing Cardiovascular: Chest Pain, Palpitations Gastrointestinal: Nausea Genitourinary: No Symptoms Reported Musculoskeletal: Back Pain Skin: No Symptoms Reported Neurological: Weakness - Physical Exam Vital Signs: Temperature 98.2 F Pulse Rate [Right] 79 Pulse Rate 128 Respiratory Rate 24 Blood Pressure [Right Arm] 126/63 Blood Pressure 143/73 O2 Sat by Pulse Oximetry 86 Oriented: Normal Eyes: Normal Ear: Normal Nose: Normal Throat: Dry Respiratory: Diminished Throughout, Wheezes Throughout Cardiovascular: Tachycardia, Edema : Normal Auscultation: Bowel Sounds: Normal Palpation: Normal Tenderness: Normal Skin: Decreased Turgur Musculoskeletal: Leg, Back:Lumbar Psychiatric: Anxiety Mood Description: Anxious Affect: Anxious Speech Pattern: Clear (CHRONIC HOARSE VOICE), Appropriate - Assessment/Plan (1) SOB (shortness of breath) Status: Acute Plan: ADMIT, ICU ISOLATION UNIT. RESP THERAPY, SUPPLEMENTAL O2, ABG ON ADMISSION. CXR, EKG AND AND CARDIAC MONITORING. VERIFY HOME MEDICATION, IV SOLU MEDROL. STRICT I&OS, RT, IV REMDESIVIR (2) COVID-19 Status: Acute (3) Afib Status: Acute (4) Chronic respiratory failure with hypoxia and hypercapnia Status: Acute (5) Hypertension Qualifiers: Hypertension type: essential hypertension Qualified Code(s): I10 - Essential (primary) hypertension Status: Chronic (6) History of throat cancer Status: Chronic (7) History of bladder cancer Status: Chronic (8) Hyperthyroidism Status: Chronic - Allergies Allergies/Adverse Reactions: Allergies Allergy/AdvReac Type Severity Reaction Status Date / Time No Known Drug Allergies Allergy Verified 02/04/20 11:09
[2021-01-16] MEDS: REMDESIVIR 100 MG in NS 250 ML IV 250 ML IV SCH (14:06)
[2021-01-16 14:40] LABS: CKMB % 1.3 % (<4); TROPONIN I 0.11 ng/mL (0-1.5)
[2021-01-16 15:20] LABS: ABG BASE EXCESS 16.2 mmol/L (-2.0-2.0)
[2021-01-16 15:22] LABS: ABG ALLEN TEST POS; ABG HCO3 43.1 mmol/L (22-26)
[2021-01-16] MEDS: CORDARONE TAB 200 MG PO SCH (15:27)
[2021-01-16] MEDS ORDERED: LOPRESSOR INJ 5 MG AMP IVP PRN (15:43)
[2021-01-16] MEDS ORDERED: ZITHROMAX TAB 250 MG PO SCH (18:00)
[2021-01-16 20:38] LABS: CKMB % 1.6 % (<4); CREATINE KINASE MB 2.2 ng/mL (0-4.0); TROPONIN I 0.11 ng/mL (0-1.5)
[2021-01-17 02:20] LABS: BASOPHILS % (AUTO) 0.1 % (0.2-1.0); HEMATOCRIT 28.2 % (42.0-54.0); HEMOGLOBIN 9.5 g/dL (13.5-18.0); LYMPHOCYTES # (AUTO) 0.1 X10^3/uL (1.3-2.9); MEAN CORPUSCULAR HEMOGLOBIN 28.1 pg (27.0-34.0); MEAN CORPUSCULAR HGB CONC 33.6 g/dL (33.0-35.0); MEAN CORPUSCULAR VOLUME 83.8 fL (80.0-100.0); MEAN PLATELET VOLUME 7.1 fL (7.4-11.0); MONOCYTES # (AUTO) 0.4 x10^3/uL (0.3-0.8); MONOCYTES % (AUTO) 4.3 % (0.0-13.0); NEUTROPHILS % (AUTO) 94.6 % (42.0-75.0); PLATELET COUNT 178 X10^3/uL (150.0-450.0); RED BLOOD COUNT 3.37 X10^6/uL (4.7-6.0); RED CELL DISTRIBUTION WIDTH 16.5 % (11.6-16.5); WHITE BLOOD COUNT 9.5 X10^3/uL (3.6-10.0)
[2021-01-17 02:26] LABS: ALANINE AMINOTRANSFERASE 13 Units/L (12-78); ALBUMIN 2.2 g/dL (3.4-5.0); ALKALINE PHOSPHATASE 68 Units/L (46-116); ASPARTATE AMINO TRANSFERASE 20 Units/L (15-37); BLOOD UREA NITROGEN 23 mg/dL (7-18); CALCIUM 8.4 mg/dL (8.5-10.1); CHLORIDE 104 mmol/L (98-107); COR CA(FOR HYPOALB) 9.8 mg/dL (8.5-10.1); COR NA(FOR HYPERGLY) 147 mmol/L (136-145); CREATININE 0.79 mg/dL (0.70-1.30); SODIUM 146 mmol/L (136-145); TOTAL PROTEIN 5.8 g/dL (6.4-8.2); eGFR NON BLACK RACES > 60 (>60)
[2021-01-17 02:31] LABS: CARBON DIOXIDE 42.1 mmol/L (21-32)
[2021-01-17 02:42] LABS: CKMB % 1.5 % (<4); CREATINE KINASE MB 1.5 ng/mL (0-4.0); TROPONIN I 0.09 ng/mL (0-1.5)
[2021-01-17 03:16] LABS: PLATELET MORPHOLOGY COMMENT NORMAL (NORMAL)
[2021-01-17] MEDS: NORCO 10/325 TAB PO PRN ×2 (03:28→12:51)
[2021-01-17] MEDS: XOPENEX 1.25 MG/3 ML NEBULE NEB SCH ×4 (03:55→18:21)
[2021-01-17] MEDS: SOLU-Medrol 40 MG VIAL IVP SCH ×3 (05:17→21:10)
[2021-01-17] MEDS: BROVANA IN SCH ×2 (07:48→21:55)
[2021-01-17] MEDS: PULMICORT NEB TX 0.5 MG NEB SCH ×2 (07:54→21:55)
[2021-01-17] MEDS: CORDARONE TAB 200 MG PO SCH (08:41)
[2021-01-17] MEDS: REMDESIVIR 100 MG in NS 250 ML IV 250 ML IV SCH (08:42)
[2021-01-17] MEDS: PROTONIX TAB 40 MG PO SCH ×2 (08:42→21:15)
[2021-01-17] MEDS: LOPRESSOR TAB 25 MG PO SCH ×2 (08:42→21:15)
[2021-01-17] MEDS: SYNTHROID 75 mcg TAB PO SCH (08:42)
--- NOTE | 2021-01-17 12:17 | PCM.PROG ---
Progress Note Progress Note for Day of Date of Exam: 01/17/21 Subjective Subjective: Pt is a 70-year-old white male past medical history of COPD(BL~3L), Atrial fibrillation, Hypertension, admitted for COVID-19 pneumonia with hypoxia. This morning patient reports some improvement in respiratory status. No acute events overnight. He is currently utilizing 5L nasal cannula supplemental oxygen. BiPAP at night. Labs/imaging: Wbc 9.5, Hgb 9.5, Plt 178, Na 146, K 3.9, Creatinine 0.79, Glucose 132, CRP 157. Treatment course includes: Remdesivir, Solumedrol 80mg q8h, scheduled Bronchodilators, immune supporting supplements, supplemental O2, I/S, Respiratory therapy consult, Pneumonia protocol. Will order smart vest for patient. Otherwise continue current plan of care. Closely monitor and follow up labs/imaging in the morning. Time spent on clinical assessment, reviewing labs and imaging, decision making, and documentation greater than 45 minutes. Past Medical Family Social History Past Med/Fam/Surg Hx: No changes since H&P Allergies: Allergies No Known Drug Allergies Allergy (Verified 02/04/20 11:09) Review of Systems ROS: No change since H&P Vital Signs and I&O's Vital Signs: Temperature 98.1 F Pulse Rate [Right] 73 Pulse Rate 89 Respiratory Rate 27 Blood Pressure [Right Arm] 173/74 Blood Pressure 163/75 O2 Sat by Pulse Oximetry 100 Intake and Output: Intake & Output 01/14/21 01/15/21 01/16/21 01/17/21 23:59 23:59 23:59 23:59 Intake Total 700 / 700 549 / 549 Output Total 625 / 625 Balance 75 / 75 549 / 549 Physical Exam Oriented: Normal Eyes: Normal Ear: Normal Nose: Normal Throat: Dry Respiratory: Diminished, Wheezes and Rhonchi Cardiovascular: Tachycardia and Edema : Normal Auscultation: Bowel Sounds: Normal Tenderness: Normal Skin: Decreased Turgur Musculoskeletal: Leg and Back:Lumbar Psychiatric: Anxiety Mood Description: Anxious Affect: Anxious Speech Pattern: Unclear and Aphasic Laboratory and Diagnostics Result Diagrams: 01/17/21 02:00 01/17/21 02:00 Labs: Laboratory WBC 9.5 X10^3/uL (3.6-10.0) 01/17/21 02:00 RBC 3.37 X10^6/uL (4.7-6.0) L 01/17/21 02:00 Hgb 9.5 g/dL (13.5-18.0) L 01/17/21 02:00 Hct 28.2 % (42.0-54.0) L 01/17/21 02:00 MCV 83.8 fL (80.0-100.0) 01/17/21 02:00 MCH 28.1 pg (27.0-34.0) 01/17/21 02:00 MCHC 33.6 g/dL (33.0-35.0) 01/17/21 02:00 RDW 16.5 % (11.6-16.5) 01/17/21 02:00 Plt Count 178 X10^3/uL (150.0-450.0) 01/17/21 02:00 Plt Count Comment Adequate (ADEQUATE) 01/17/21 02:00 MPV 7.1 fL (7.4-11.0) L 01/17/21 02:00 Neut % (Auto) 94.6 % (42.0-75.0) H 01/17/21 02:00 Lymph % (Auto) 1.0 % (21.0-51.0) L 01/17/21 02:00 Stokes % (Auto) 4.3 % (0.0-13.0) 01/17/21 02:00 Eos % (Auto) 0.0 % (0.9-2.9) L 01/17/21 02:00 Baso % (Auto) 0.1 % (0.2-1.0) L 01/17/21 02:00 Neut # (Auto) 9.0 x10^3/uL (2.2-4.8) H 01/17/21 02:00 Lymph # (Auto) 0.1 X10^3/uL (1.3-2.9) L 01/17/21 02:00 [place] # (Auto) 0.4 x10^3/uL (0.3-0.8) 01/17/21 02:00 Eos # (Auto) 0.0 x10^3/uL (0.0-0.2) 01/17/21 02:00 Baso # (Auto) 0.0 X10^3/uL (0.0-0.1) 01/17/21 02:00 Absolute Nucleated RBC 0.0 /100WBC 01/17/21 02:00 Total Counted 100 01/17/21 02:00 Neutrophils % (Manual) 96 % (39-76) H 01/17/21 02:00 Band Neutrophils % 1 % (0-10) 01/16/21 09:24 Lymphocytes % (Manual) 2 % (13-43) L 01/17/21 02:00 Monocytes % (Manual) 2 % (4-9) L 01/17/21 02:00 Plt Morphology Comment Normal (NORMAL) 01/17/21 02:00 RBC Morphology Normal (NORMAL) 01/17/21 02:00 Anisocytosis Slight A 01/16/21 09:24 Sample Site Lrad 01/16/21 15:12 ABG pH 7.450 (7.35-7.45) 01/16/21 15:12 ABG pCO2 62.0 mmHg (35.0-45.0) H* 01/16/21 15:12 ABG pO2 51.0 mmHg (80.0-100.0) L 01/16/21 15:12 ABG HCO3 43.1 mmol/L (22-26) H* 01/16/21 15:12 ABG O2 Saturation 87.0 % (90-100) L 01/16/21 15:12 ABG Base Excess 16.2 mmol/L (-2.0-2.0) H 01/16/21 15:12 Ed Test Pos 01/16/21 15:12 A-a Gradient 157.0 mmHg 01/16/21 15:12 FiO2 40.0 01/16/21 15:12 Blood Gas Comments Pt rossi well elj 01/16/21 15:12 Sodium 146 mmol/L (136-145) H 01/17/21 02:00 Corrected Sodium 147 mmol/L (136-145) H 01/17/21 02:00 Potassium 3.9 mmol/L (3.5-5.1) 01/17/21 02:00 Chloride 104 mmol/L (98-107) 01/17/21 02:00 Carbon Dioxide 42.1 mmol/L (21-32) H* 01/17/21 02:00 BUN 23 mg/dL (7-18) H 01/17/21 02:00 Creatinine 0.79 mg/dL (0.70-1.30) 01/17/21 02:00 Est GFR (MDRD) Af Amer > 60 (>60) 01/17/21 02:00 Est GFR (MDRD) Non-Af > 60 (>60) 01/17/21 02:00 Glucose 132 mg/dL (65-99) H 01/17/21 02:00 Calcium 8.4 mg/dL (8.5-10.1) L 01/17/21 02:00 Corrected Calcium 9.8 mg/dL (8.5-10.1) 01/17/21 02:00 Total Bilirubin 0.30 mg/dL (0.2-1.0) 01/17/21 02:00 AST 20 Units/L (15-37) 01/17/21 02:00 ALT 13 Units/L (12-78) 01/17/21 02:00 Alkaline Phosphatase 68 Units/L (46-116) 01/17/21 02:00 Creatine Kinase 103 Units/L (39-308) 01/17/21 02:00 CK-MB (CK-2) 1.5 ng/mL (0-4.0) 01/17/21 02:00 CK/CKMB % Calc 1.5 % (<4) 01/17/21 02:00 Troponin I 0.09 ng/mL (0-1.5) 01/17/21 02:00 C-Reactive Protein 157.80 mg/L (0-3.0) H 01/17/21 02:00 B-Natriuretic Peptide 184 pg/mL (0-79) H 01/15/21 20:11 Total Protein 5.8 g/dL (6.4-8.2) L 01/17/21 02:00 Albumin 2.2 g/dL (3.4-5.0) L 01/17/21 02:00 Globulin 3.6 g/dL (2.5-4.5) 01/17/21 02:00 Albumin/Globulin Ratio 0.6 Ratio (1.1-2.1) L 01/17/21 02:00 SARS-CoV-2 (PCR) Positive (NEGATIVE) A 01/15/21 20:12 Influenza Type A (PCR) Negative (NEGATIVE) 01/15/21 20:12 Influenza Type B (PCR) Negative (NEGATIVE) 01/15/21 20:12 RSV (PCR) Negative (NEGATIVE) 01/15/21 20:12 Plan (1) SOB (shortness of breath): Status: Acute Plan: ADMIT, ICU ISOLATION UNIT RESP THERAPY, SUPPLEMENTAL O2, ABG ON ADMISSION CXR, EKG AND AND CARDIAC MONITORING VERIFY HOME MEDICATION, IV SOLU MEDROL STRICT I&OS, RT, IV REMDESIVIR (2) COVID-19: Status: Acute (3) Afib: Status: Acute (4) Chronic respiratory failure with hypoxia and hypercapnia: Status: Acute (5) Hypertension: Status: Chronic Qualifiers: Hypertension type: essential hypertension Qualified Code(s): I10 - Essential (primary) hypertension (6) History of throat cancer: Status: Chronic (7) History of bladder cancer: Status: Chronic (8) Hyperthyroidism: Status: Chronic
[2021-01-17] MEDS: ELIQUIS PO SCH (21:15)
[2021-01-18] MEDS: XOPENEX 1.25 MG/3 ML NEBULE NEB SCH ×4 (00:30→18:30)
[2021-01-18 04:16] LABS: ABG BASE EXCESS 20.2 mmol/L (-2.0-2.0)
[2021-01-18 04:18] LABS: ABG ALLEN TEST POS; ABG HCO3 47.7 mmol/L (22-26)
[2021-01-18 05:30] LABS: BASOPHILS % (AUTO) 0.2 % (0.2-1.0); HEMATOCRIT 28.7 % (42.0-54.0); HEMOGLOBIN 9.6 g/dL (13.5-18.0); LYMPHOCYTES # (AUTO) 0.1 X10^3/uL (1.3-2.9); LYMPHOCYTES % (AUTO) 0.9 % (21.0-51.0); MEAN CORPUSCULAR HEMOGLOBIN 27.9 pg (27.0-34.0); MEAN CORPUSCULAR HGB CONC 33.6 g/dL (33.0-35.0); MEAN PLATELET VOLUME 7.1 fL (7.4-11.0); MONOCYTES # (AUTO) 0.4 x10^3/uL (0.3-0.8); MONOCYTES % (AUTO) 4.2 % (0.0-13.0); NEUTROPHILS # (AUTO) 9.7 x10^3/uL (2.2-4.8); NEUTROPHILS % (AUTO) 94.7 % (42.0-75.0); PLATELET COUNT 199 X10^3/uL (150.0-450.0); RED BLOOD COUNT 3.46 X10^6/uL (4.7-6.0); RED CELL DISTRIBUTION WIDTH 16.4 % (11.6-16.5); WHITE BLOOD COUNT 10.2 X10^3/uL (3.6-10.0)
[2021-01-18 05:54] LABS: ALANINE AMINOTRANSFERASE 13 Units/L (12-78); ALBUMIN 2.2 g/dL (3.4-5.0); ALKALINE PHOSPHATASE 72 Units/L (46-116); ASPARTATE AMINO TRANSFERASE 17 Units/L (15-37); BLOOD UREA NITROGEN 28 mg/dL (7-18); CALCIUM 8.4 mg/dL (8.5-10.1); CHLORIDE 107 mmol/L (98-107); COR CA(FOR HYPOALB) 9.8 mg/dL (8.5-10.1); COR NA(FOR HYPERGLY) 150 mmol/L (136-145); CREATININE 0.86 mg/dL (0.70-1.30); SODIUM 149 mmol/L (136-145); TOTAL PROTEIN 5.6 g/dL (6.4-8.2); eGFR NON BLACK RACES > 60 (>60)
--- NOTE | 2021-01-18 05:59 | RAD ---
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 Lungs are hyperinflated with stable coarsened interstitial markings. No definite acute alveolar infiltrate or significant effusion is identified. No pneumothorax.IMPRESSIONStable chest exam.Electronically signed by: LANG ALVARADO (Jan 18, 2021 05:56:52)
[2021-01-18 06:08] LABS: CARBON DIOXIDE 41.7 mmol/L (21-32)
[2021-01-18 06:31] LABS: PLATELET MORPHOLOGY COMMENT NORMAL (NORMAL)
[2021-01-18] MEDS: SOLU-Medrol 40 MG VIAL IVP SCH ×3 (06:39→23:35)
[2021-01-18] MEDS: CORDARONE TAB 200 MG PO SCH (08:35)
[2021-01-18] MEDS: ELIQUIS PO SCH ×2 (08:35→23:35)
[2021-01-18] MEDS: PROTONIX TAB 40 MG PO SCH ×2 (08:36→23:35)
[2021-01-18] MEDS: REMDESIVIR 100 MG in NS 250 ML IV 250 ML IV SCH (08:36)
[2021-01-18] MEDS: SYNTHROID 75 mcg TAB PO SCH (08:36)
[2021-01-18] MEDS: LOPRESSOR TAB 25 MG PO SCH ×2 (08:36→23:34)
[2021-01-18] MEDS: BROVANA IN SCH ×2 (09:47→21:08)
[2021-01-18] MEDS: PULMICORT NEB TX 0.5 MG NEB SCH ×2 (09:54→21:12)
--- NOTE | 2021-01-18 12:32 | PCM.PROG ---
Progress Note Progress Note for Day of Date of Exam: 01/18/21 Subjective Subjective: Pt is a 70-year-old white male past medical history of COPD(BL~3L), Atrial fibrillation, Hypertension, admitted for COVID-19 pneumonia with hypoxia. This morning patient is sitting in recliner taking a breathing treatment. He reports some improvement compared to yesterday. No acute events overnight. He is currently utilizing 5L nasal cannula supplemental oxygen. BiPAP at night. Labs/imaging: Wbc 10.2, Hgb 9.6, Plt 199, Na 149, K 4.0, Creatinine 0.86, Glucose 137, CRP 157>69. Treatment course includes: Remdesivir, Solumedrol 80mg q8h, scheduled Bronchodilators, immune supporting supplements, supplemental O2, I/S, Respiratory therapy consult, Pneumonia protocol. Wean/titrate supplemental O2 as tolerated. Otherwise continue current plan of care. Closely monitor and follow up labs/imaging in the morning. Time spent on clinical assessment, reviewing labs and imaging, decision making, and documentation greater than 45 minutes. Past Medical Family Social History Past Med/Fam/Surg Hx: No changes since H&P Allergies: Allergies No Known Drug Allergies Allergy (Verified 02/04/20 11:09) Review of Systems ROS: No change since H&P Vital Signs and I&O's Vital Signs: Temperature 98.5 F Pulse Rate [Right] 87 Pulse Rate 76 Respiratory Rate 32 Blood Pressure [Right Arm] 178/85 Blood Pressure 163/75 O2 Sat by Pulse Oximetry 89 Intake and Output: Intake & Output 01/15/21 01/16/21 01/17/21 01/18/21 23:59 23:59 23:59 23:59 Intake Total 700 / 700 1373 / 1373 504 / 504 Output Total 625 / 625 600 / 600 550 / 550 Balance 75 / 75 773 / 773 -46 / -46 Physical Exam Oriented: Normal Eyes: Normal Ear: Normal Nose: Normal Throat: Dry Respiratory: Diminished, Wheezes and Rhonchi Cardiovascular: Tachycardia and Edema : Normal Auscultation: Bowel Sounds: Normal Tenderness: Normal Skin: Decreased Turgur Musculoskeletal: Leg and Back:Lumbar Psychiatric: Anxiety Mood Description: Anxious Affect: Anxious Speech Pattern: Unclear and Aphasic Laboratory and Diagnostics Result Diagrams: 01/18/21 04:17 01/18/21 04:17 Labs: 01/16/21 14:45 Blood Blood Culture - Preliminary 01/16/21 14:42 Blood Blood Culture - Preliminary Laboratory WBC 10.2 X10^3/uL (3.6-10.0) H 01/18/21 04:17 RBC 3.46 X10^6/uL (4.7-6.0) L 01/18/21 04:17 Hgb 9.6 g/dL (13.5-18.0) L 01/18/21 04:17 Hct 28.7 % (42.0-54.0) L 01/18/21 04:17 MCV 83.0 fL (80.0-100.0) 01/18/21 04:17 MCH 27.9 pg (27.0-34.0) 01/18/21 04:17 MCHC 33.6 g/dL (33.0-35.0) 01/18/21 04:17 RDW 16.4 % (11.6-16.5) 01/18/21 04:17 Plt Count 199 X10^3/uL (150.0-450.0) 01/18/21 04:17 Plt Count Comment Adequate (ADEQUATE) 01/18/21 04:17 MPV 7.1 fL (7.4-11.0) L 01/18/21 04:17 Neut % (Auto) 94.7 % (42.0-75.0) H 01/18/21 04:17 Lymph % (Auto) 0.9 % (21.0-51.0) L 01/18/21 04:17 [place] % (Auto) 4.2 % (0.0-13.0) 01/18/21 04:17 Eos % (Auto) 0.0 % (0.9-2.9) L 01/18/21 04:17 Baso % (Auto) 0.2 % (0.2-1.0) 01/18/21 04:17 Neut # (Auto) 9.7 x10^3/uL (2.2-4.8) H 01/18/21 04:17 Lymph # (Auto) 0.1 X10^3/uL (1.3-2.9) L 01/18/21 04:17 [place] # (Auto) 0.4 x10^3/uL (0.3-0.8) 01/18/21 04:17 Eos # (Auto) 0.0 x10^3/uL (0.0-0.2) 01/18/21 04:17 Baso # (Auto) 0.0 X10^3/uL (0.0-0.1) 01/18/21 04:17 Absolute Nucleated RBC 0.1 /100WBC 01/18/21 04:17 Total Counted 100 01/18/21 04:17 Neutrophils % (Manual) 100 % (39-76) H 01/18/21 04:17 Band Neutrophils % 1 % (0-10) 01/16/21 09:24 Lymphocytes % (Manual) Not Reportable 01/18/21 04:17 Monocytes % (Manual) 2 % (4-9) L 01/17/21 02:00 Plt Morphology Comment Normal (NORMAL) 01/18/21 04:17 RBC Morphology Normal (NORMAL) 01/18/21 04:17 Anisocytosis Slight A 01/16/21 09:24 Sample Site Rr 01/18/21 04:10 ABG pH 7.460 (7.35-7.45) H 01/18/21 04:10 ABG pCO2 67.0 mmHg (35.0-45.0) H* 01/18/21 04:10 ABG pO2 87.0 mmHg (80.0-100.0) 01/18/21 04:10 ABG HCO3 47.7 mmol/L (22-26) H* 01/18/21 04:10 ABG O2 Saturation 97.0 % (90-100) 01/18/21 04:10 ABG Base Excess 20.2 mmol/L (-2.0-2.0) H 01/18/21 04:10 Ed Test Pos 01/18/21 04:10 A-a Gradient 114.0 mmHg 01/18/21 04:10 FiO2 40.0 01/18/21 04:10 Blood Gas Comments Mignon well ae 01/18/21 04:10 Sodium 149 mmol/L (136-145) H 01/18/21 04:17 Corrected Sodium 150 mmol/L (136-145) H 01/18/21 04:17 Potassium 4.0 mmol/L (3.5-5.1) 01/18/21 04:17 Chloride 107 mmol/L (98-107) 01/18/21 04:17 Carbon Dioxide 41.7 mmol/L (21-32) H* 01/18/21 04:17 BUN 28 mg/dL (7-18) H 01/18/21 04:17 Creatinine 0.86 mg/dL (0.70-1.30) 01/18/21 04:17 Est GFR (MDRD) Af Amer > 60 (>60) 01/18/21 04:17 Est GFR (MDRD) Non-Af > 60 (>60) 01/18/21 04:17 Glucose 137 mg/dL (65-99) H 01/18/21 04:17 Calcium 8.4 mg/dL (8.5-10.1) L 01/18/21 04:17 Corrected Calcium 9.8 mg/dL (8.5-10.1) 01/18/21 04:17 Total Bilirubin 0.30 mg/dL (0.2-1.0) 01/18/21 04:17 AST 17 Units/L (15-37) 01/18/21 04:17 ALT 13 Units/L (12-78) 01/18/21 04:17 Alkaline Phosphatase 72 Units/L (46-116) 01/18/21 04:17 Creatine Kinase 103 Units/L (39-308) 01/17/21 02:00 CK-MB (CK-2) 1.5 ng/mL (0-4.0) 01/17/21 02:00 CK/CKMB % Calc 1.5 % (<4) 01/17/21 02:00 Troponin I 0.09 ng/mL (0-1.5) 01/17/21 02:00 C-Reactive Protein 69.60 mg/L (0-3.0) H 01/18/21 04:17 B-Natriuretic Peptide 184 pg/mL (0-79) H 01/15/21 20:11 Total Protein 5.6 g/dL (6.4-8.2) L 01/18/21 04:17 Albumin 2.2 g/dL (3.4-5.0) L 01/18/21 04:17 Globulin 3.4 g/dL (2.5-4.5) 01/18/21 04:17 Albumin/Globulin Ratio 0.6 Ratio (1.1-2.1) L 01/18/21 04:17 SARS-CoV-2 (PCR) Positive (NEGATIVE) A 01/15/21 20:12 Influenza Type A (PCR) Negative (NEGATIVE) 01/15/21 20:12 Influenza Type B (PCR) Negative (NEGATIVE) 01/15/21 20:12 RSV (PCR) Negative (NEGATIVE) 01/15/21 20:12 Plan (1) SOB (shortness of breath): Status: Acute Plan: ADMIT, ICU ISOLATION UNIT RESP THERAPY, SUPPLEMENTAL O2, ABG ON ADMISSION CXR, EKG AND AND CARDIAC MONITORING VERIFY HOME MEDICATION, IV SOLU MEDROL STRICT I&OS, RT, IV REMDESIVIR (2) COVID-19: Status: Acute (3) Afib: Status: Acute (4) Chronic respiratory failure with hypoxia and hypercapnia: Status: Acute (5) Hypertension: Status: Chronic Qualifiers: Hypertension type: essential hypertension Qualified Code(s): I10 - Essential (primary) hypertension (6) History of throat cancer: Status: Chronic (7) History of bladder cancer: Status: Chronic (8) Hyperthyroidism: Status: Chronic
[2021-01-18] MEDS: NORCO 10/325 TAB PO PRN (13:32)
[2021-01-18] MEDS: NICOTINE PATCH TD SCH (14:53)
[2021-01-18] MEDS: CARDIZEM INJ 125 MG VIAL 125 MG in NS 100 ML IV 100 ML IV PRN (20:55)
[2021-01-18] MEDS ORDERED: LOPRESSOR INJ 5 MG AMP IVP ONE (21:40)
[2021-01-18 22:01] LABS: CREATINE KINASE 33 Units/L (39-308); CREATINE KINASE MB < 1.0 ng/mL (0-4.0); TROPONIN I 0.07 ng/mL (0-1.5)
[2021-01-19] MEDS: XOPENEX 1.25 MG/3 ML NEBULE NEB SCH ×4 (00:59→18:12)
[2021-01-19] MEDS: LANOXIN INJ IVP SCH (02:00)
[2021-01-19] MEDS: SOLU-Medrol 40 MG VIAL IVP SCH ×3 (05:28→21:42)
--- NOTE | 2021-01-19 06:24 | RAD ---
HISTORYFollow-up pneumonia, COVID-19STUDYChest AP [id number]/2021FINDINGSHeart remains within normal limits in size. The bety are normal. The lungs are markedly hyperinflated consistent with COPD. Chronic appearing interstitial infiltrates are present diffusely left greater than right. No ground-glass infiltrates, alveolar infiltrates, or areas of consolidation identified. No definite pneumothoraces or pleural effusions identified. Bony thorax is unremarkable.IMPRESSIONMarked hyperinflation with diffuse chronic interstitial lung changes stable when compared with the prior examination. Findings are consistent with COPD in the appropriat e clinical settingNo definite acute alveolar infiltratesElectronically signed by: LUCI HUYNH (Jan 19, 2021 06:22:10)
[2021-01-19 06:27] LABS: BASOPHILS % (AUTO) 0 % (0.2-1.0); HEMATOCRIT 30.2 % (42.0-54.0); HEMOGLOBIN 9.8 g/dL (13.5-18.0); LYMPHOCYTES # (AUTO) 0.1 X10^3/uL (1.3-2.9); MEAN CORPUSCULAR HEMOGLOBIN 27.4 pg (27.0-34.0); MEAN CORPUSCULAR HGB CONC 32.6 g/dL (33.0-35.0); MEAN CORPUSCULAR VOLUME 84.1 fL (80.0-100.0); MEAN PLATELET VOLUME 7.2 fL (7.4-11.0); MONOCYTES # (AUTO) 0.7 x10^3/uL (0.3-0.8); MONOCYTES % (AUTO) 5.9 % (0.0-13.0); NEUTROPHILS # (AUTO) 10.8 x10^3/uL (2.2-4.8); NEUTROPHILS % (AUTO) 93.1 % (42.0-75.0); PLATELET COUNT 234 X10^3/uL (150.0-450.0); RED BLOOD COUNT 3.59 X10^6/uL (4.7-6.0); RED CELL DISTRIBUTION WIDTH 16.3 % (11.6-16.5); WHITE BLOOD COUNT 11.6 X10^3/uL (3.6-10.0)
[2021-01-19 06:50] LABS: ALANINE AMINOTRANSFERASE 18 Units/L (12-78); ALBUMIN 2.5 g/dL (3.4-5.0); ALKALINE PHOSPHATASE 76 Units/L (46-116); ASPARTATE AMINO TRANSFERASE 19 Units/L (15-37); BLOOD UREA NITROGEN 31 mg/dL (7-18); CALCIUM 8.6 mg/dL (8.5-10.1); CARBON DIOXIDE 39.3 mmol/L (21-32); CHLORIDE 110 mmol/L (98-107); COR CA(FOR HYPOALB) 9.8 mg/dL (8.5-10.1); COR NA(FOR HYPERGLY) 153 mmol/L (136-145); CREATININE 0.82 mg/dL (0.70-1.30); TOTAL PROTEIN 5.8 g/dL (6.4-8.2); eGFR NON BLACK RACES > 60 (>60)
[2021-01-19 07:20] LABS: SODIUM 152 mmol/L (136-145)
[2021-01-19 07:59] LABS: BAND NEUTROPHILS % 4 % (0-10); PLATELET MORPHOLOGY COMMENT NORMAL (NORMAL)
[2021-01-19] MEDS: CARDIZEM INJ 125 MG VIAL 125 MG in NS 100 ML IV 100 ML IV PRN ×2 (09:07→15:30)
[2021-01-19] MEDS: SYNTHROID 75 mcg TAB PO SCH (09:08)
[2021-01-19] MEDS: CORDARONE TAB 200 MG PO SCH ×2 (09:08→17:06)
[2021-01-19] MEDS: LOPRESSOR TAB 25 MG PO SCH ×2 (09:12→21:42)
[2021-01-19] MEDS: ELIQUIS PO SCH ×2 (09:12→21:42)
[2021-01-19] MEDS: PROTONIX TAB 40 MG PO SCH ×2 (09:12→21:42)
[2021-01-19] MEDS: NICOTINE PATCH TD SCH ×2 (09:13→18:27)
[2021-01-19] MEDS ORDERED: LANOXIN INJ IVP ONE (09:20)
[2021-01-19] MEDS: BROVANA IN SCH ×2 (09:37→20:40)
[2021-01-19] MEDS: LASIX IVP SCH (09:38)
[2021-01-19] MEDS: D5W 1000 ML IV 1,000 ML IV SCH ×2 (09:39→23:52)
[2021-01-19] MEDS: PULMICORT NEB TX 0.5 MG NEB SCH ×2 (09:43→20:40)
[2021-01-19 10:35] LABS: CREATINE KINASE 25 Units/L (39-308); CREATINE KINASE MB < 1.0 ng/mL (0-4.0); TROPONIN I 0.09 ng/mL (0-1.5)
[2021-01-19] MEDS: MORPHINE SULFATE INJ 2 MG INJ IVP PRN ×2 (15:14→21:52)
[2021-01-20] MEDS: XOPENEX 1.25 MG/3 ML NEBULE NEB SCH ×4 (00:53→16:54)
[2021-01-20] MEDS: MORPHINE SULFATE INJ 2 MG INJ IVP PRN ×6 (01:41→23:59)
[2021-01-20] MEDS: CARDIZEM INJ 125 MG VIAL 125 MG in NS 100 ML IV 100 ML IV PRN (03:45)
[2021-01-20 05:07] LABS: BASOPHILS % (AUTO) 0.1 % (0.2-1.0); HEMATOCRIT 30.3 % (42.0-54.0); HEMOGLOBIN 9.8 g/dL (13.5-18.0); LYMPHOCYTES # (AUTO) 0.1 X10^3/uL (1.3-2.9); LYMPHOCYTES % (AUTO) 1.3 % (21.0-51.0); MEAN CORPUSCULAR HEMOGLOBIN 26.9 pg (27.0-34.0); MEAN CORPUSCULAR HGB CONC 32.4 g/dL (33.0-35.0); MEAN CORPUSCULAR VOLUME 83.1 fL (80.0-100.0); MEAN PLATELET VOLUME 7.3 fL (7.4-11.0); MONOCYTES # (AUTO) 0.4 x10^3/uL (0.3-0.8); MONOCYTES % (AUTO) 4.1 % (0.0-13.0); NEUTROPHILS # (AUTO) 8.4 x10^3/uL (2.2-4.8); NEUTROPHILS % (AUTO) 94.5 % (42.0-75.0); PLATELET COUNT 220 X10^3/uL (150.0-450.0); RED BLOOD COUNT 3.64 X10^6/uL (4.7-6.0); RED CELL DISTRIBUTION WIDTH 16.2 % (11.6-16.5); WHITE BLOOD COUNT 8.9 X10^3/uL (3.6-10.0)
[2021-01-20 05:39] LABS: ALANINE AMINOTRANSFERASE 17 Units/L (12-78); ALBUMIN 2.4 g/dL (3.4-5.0); ALKALINE PHOSPHATASE 76 Units/L (46-116); ASPARTATE AMINO TRANSFERASE 16 Units/L (15-37); BLOOD UREA NITROGEN 23 mg/dL (7-18); CALCIUM 8.4 mg/dL (8.5-10.1); CHLORIDE 105 mmol/L (98-107); CKMB % 3.5 % (<4); COR CA(FOR HYPOALB) 9.7 mg/dL (8.5-10.1); COR NA(FOR HYPERGLY) 148 mmol/L (136-145); CREATINE KINASE 29 Units/L (39-308); CREATINE KINASE MB < 1.0 ng/mL (0-4.0); CREATININE 0.82 mg/dL (0.70-1.30); SODIUM 147 mmol/L (136-145); TOTAL PROTEIN 5.8 g/dL (6.4-8.2); TROPONIN I 0.05 ng/mL (0-1.5); eGFR NON BLACK RACES > 60 (>60)
[2021-01-20] MEDS: SOLU-Medrol 40 MG VIAL IVP SCH ×3 (05:46→22:42)
[2021-01-20 05:50] LABS: CARBON DIOXIDE 40.4 mmol/L (21-32)
[2021-01-20 05:55] LABS: PLATELET MORPHOLOGY COMMENT NORMAL (NORMAL)
[2021-01-20] MEDS: CORDARONE TAB 200 MG PO SCH ×2 (06:06→20:18)
--- NOTE | 2021-01-20 06:33 | RAD ---
HISTORYPNEUMONIA F/USTUDYCHEST, 1 VIEWCOMPARISONOne day prior.TECHNIQUEAP view of the chestFINDINGSCardiac and mediastinal contours are within normal limits. The lungs are hyperinflated with increased lucencies and diffuse bilateral interstitial opacities. Similar appearing left base infiltrate cannot exclude a left-sided pleural effusion. There is an interface at the peripheral right upper lung which may represent a small pneumothorax or skin fold. No evidence of tension.IMPRESSIONInterface at the peripheral right upper kimberly thorax may represent a small pneumothorax or skin fold. Consider CT for further evaluation.Severe emphysema.Electronically signed by: Estuardo Nuñez (Jan 20, 2021 06:31:05)
[2021-01-20] MEDS: LASIX IVP SCH (09:06)
[2021-01-20] MEDS: PROTONIX TAB 40 MG PO SCH ×2 (09:07→20:18)
[2021-01-20] MEDS: ELIQUIS PO SCH ×2 (09:07→20:18)
[2021-01-20] MEDS: BROVANA IN SCH ×2 (09:41→21:00)
[2021-01-20] MEDS: PULMICORT NEB TX 0.5 MG NEB SCH ×2 (09:41→21:00)
[2021-01-20] MEDS: SYNTHROID 75 mcg TAB PO SCH (09:48)
[2021-01-20] MEDS: LOPRESSOR TAB 25 MG PO SCH ×2 (12:10→20:18)
[2021-01-20] MEDS: LANOXIN INJ IVP SCH (13:20)
[2021-01-20] MEDS: D5W 1000 ML IV 1,000 ML IV SCH (15:36)
[2021-01-21] MEDS: D5W 1000 ML IV 1,000 ML IV SCH ×4 (01:11→23:16)
[2021-01-21] MEDS: MORPHINE SULFATE INJ 2 MG INJ IVP PRN ×4 (03:47→23:00)
--- NOTE | 2021-01-21 05:29 | RAD ---
PROCEDURE: Chest X-ray 1 View .HISTORY: Respiratory failure and COVID-19 with COPD.TECHNIQUE: AP view .COMPARISON: 01/20/2021.TECHNICAL QUALITY: Satisfactory .FINDINGS:Unchanged cardio mediastinal silhouette.Emphysematous changes bilaterally. Continued increased interstitial markings consistent with fibrosis. No definite evidence of a pneumothorax and no pleural fluid.IMPRESSION:1. No evidence of a pneumothorax.2. COPD.3. No other acute change identified.Electronically signed by: Enrico Zurita (Jan 21, 2021 05:27:39)
[2021-01-21 05:56] LABS: ABG BASE EXCESS 21.2 mmol/L (-2.0-2.0)
[2021-01-21 05:58] LABS: ABG HCO3 47.4 mmol/L (22-26)
[2021-01-21 05:59] LABS: ABG ALLEN TEST POS
[2021-01-21] MEDS: XOPENEX 1.25 MG/3 ML NEBULE NEB SCH ×3 (06:08→18:03)
[2021-01-21] MEDS: CORDARONE TAB 200 MG PO SCH ×2 (06:13→16:51)
[2021-01-21] MEDS: SOLU-Medrol 40 MG VIAL IVP SCH ×3 (06:13→22:42)
[2021-01-21 06:24] LABS: BASOPHILS % (AUTO) 0 % (0.2-1.0); HEMATOCRIT 29.3 % (42.0-54.0); HEMOGLOBIN 9.8 g/dL (13.5-18.0); LYMPHOCYTES # (AUTO) 0.1 X10^3/uL (1.3-2.9); LYMPHOCYTES % (AUTO) 1.3 % (21.0-51.0); MEAN CORPUSCULAR HEMOGLOBIN 27.5 pg (27.0-34.0); MEAN CORPUSCULAR HGB CONC 33.4 g/dL (33.0-35.0); MEAN CORPUSCULAR VOLUME 82.5 fL (80.0-100.0); MEAN PLATELET VOLUME 7.3 fL (7.4-11.0); MONOCYTES # (AUTO) 0.6 x10^3/uL (0.3-0.8); MONOCYTES % (AUTO) 7.8 % (0.0-13.0); NEUTROPHILS # (AUTO) 6.9 x10^3/uL (2.2-4.8); NEUTROPHILS % (AUTO) 90.9 % (42.0-75.0); PLATELET COUNT 227 X10^3/uL (150.0-450.0); RED BLOOD COUNT 3.55 X10^6/uL (4.7-6.0); WHITE BLOOD COUNT 7.6 X10^3/uL (3.6-10.0)
[2021-01-21 06:42] LABS: ALANINE AMINOTRANSFERASE 14 Units/L (12-78); ALBUMIN 2.3 g/dL (3.4-5.0); ALKALINE PHOSPHATASE 73 Units/L (46-116); ASPARTATE AMINO TRANSFERASE 14 Units/L (15-37); BLOOD UREA NITROGEN 24 mg/dL (7-18); CALCIUM 8.1 mg/dL (8.5-10.1); CARBON DIOXIDE 39.4 mmol/L (21-32); CHLORIDE 100 mmol/L (98-107); COR CA(FOR HYPOALB) 9.5 mg/dL (8.5-10.1); COR NA(FOR HYPERGLY) 140 mmol/L (136-145); CREATININE 0.76 mg/dL (0.70-1.30); SODIUM 140 mmol/L (136-145); TOTAL PROTEIN 5.5 g/dL (6.4-8.2); eGFR NON BLACK RACES > 60 (>60)
[2021-01-21 07:38] LABS: ANISOCYTOSIS SLIGHT; HYPOCHROMASIA SLIGHT; PLATELET MORPHOLOGY COMMENT NORMAL (NORMAL)
[2021-01-21] MEDS: LASIX IVP SCH (09:13)
[2021-01-21] MEDS: PULMICORT NEB TX 0.5 MG NEB SCH ×2 (09:30→21:28)
[2021-01-21] MEDS: BROVANA IN SCH ×2 (09:30→21:28)
[2021-01-21] MEDS: SYNTHROID 75 mcg TAB PO SCH (09:34)
[2021-01-21] MEDS: PROTONIX TAB 40 MG PO SCH ×2 (09:34→22:43)
[2021-01-21] MEDS: ELIQUIS PO SCH ×2 (09:34→22:42)
[2021-01-21] MEDS: LOPRESSOR TAB 25 MG PO SCH ×2 (09:34→22:43)
[2021-01-21] MEDS ORDERED: LOVENOX INJ 60 MG SYR SC SCH (21:00)
[2021-01-21] MEDS: MILK OF MAGNESIA PO SCH (22:42)
[2021-01-22] MEDS: XOPENEX 1.25 MG/3 ML NEBULE NEB SCH ×3 (00:44→17:35)
[2021-01-22] MEDS: D5W 1000 ML IV 1,000 ML IV SCH ×2 (04:11→14:01)
[2021-01-22 05:10] LABS: BASOPHILS % (AUTO) 0.1 % (0.2-1.0); HEMATOCRIT 29.1 % (42.0-54.0); HEMOGLOBIN 9.8 g/dL (13.5-18.0); LYMPHOCYTES # (AUTO) 0.1 X10^3/uL (1.3-2.9); LYMPHOCYTES % (AUTO) 1.4 % (21.0-51.0); MEAN CORPUSCULAR HEMOGLOBIN 27.3 pg (27.0-34.0); MEAN CORPUSCULAR HGB CONC 33.6 g/dL (33.0-35.0); MEAN CORPUSCULAR VOLUME 81.3 fL (80.0-100.0); MEAN PLATELET VOLUME 7.5 fL (7.4-11.0); MONOCYTES # (AUTO) 0.4 x10^3/uL (0.3-0.8); NEUTROPHILS % (AUTO) 92.5 % (42.0-75.0); PLATELET COUNT 238 X10^3/uL (150.0-450.0); RED BLOOD COUNT 3.58 X10^6/uL (4.7-6.0); RED CELL DISTRIBUTION WIDTH 16.3 % (11.6-16.5); WHITE BLOOD COUNT 6.5 X10^3/uL (3.6-10.0)
[2021-01-22 05:31] LABS: ALANINE AMINOTRANSFERASE 12 Units/L (12-78); ALBUMIN 2.1 g/dL (3.4-5.0); ALKALINE PHOSPHATASE 73 Units/L (46-116); ASPARTATE AMINO TRANSFERASE 10 Units/L (15-37); BLOOD UREA NITROGEN 24 mg/dL (7-18); CALCIUM 7.8 mg/dL (8.5-10.1); CARBON DIOXIDE 39.9 mmol/L (21-32); CHLORIDE 99 mmol/L (98-107); COR CA(FOR HYPOALB) 9.3 mg/dL (8.5-10.1); COR NA(FOR HYPERGLY) 140 mmol/L (136-145); CREATININE 0.71 mg/dL (0.70-1.30); SODIUM 139 mmol/L (136-145); TOTAL PROTEIN 5.2 g/dL (6.4-8.2); eGFR NON BLACK RACES > 60 (>60)
[2021-01-22 06:03] LABS: PLATELET MORPHOLOGY COMMENT NORMAL (NORMAL)
[2021-01-22 06:18] LABS: ABG BASE EXCESS 20.7 mmol/L (-2.0-2.0)
[2021-01-22 06:19] LABS: ABG ALLEN TEST POS; ABG HCO3 47.1 mmol/L (22-26)
[2021-01-22] MEDS: MORPHINE SULFATE INJ 2 MG INJ IVP PRN ×4 (06:37→22:00)
[2021-01-22] MEDS: CORDARONE TAB 200 MG PO SCH ×2 (06:38→17:15)
[2021-01-22] MEDS: BROVANA IN SCH ×2 (07:41→21:00)
[2021-01-22] MEDS: PULMICORT NEB TX 0.5 MG NEB SCH ×2 (07:41→21:00)
--- NOTE | 2021-01-22 08:27 | RAD ---
HISTORYPNEUMONIA, COPDSTUDYCHEST x-ray, 1 VIEWCOMPARISONX-ray 01/21/2021FINDINGSCOPD. Heart is normal in size. Persistent infiltrate at the left lung base is concerning for possible pneumonia. Bronchiectasis is seen in the lower lungs. Mild right infrahilar density is unchanged and could be atelectasis or pneumonia, also. Probable small pleural effusions.IMPRESSIONAppearance of the chest is unchanged.Electronically signed by: Donavan Ortiz (Jan 22, 2021 08:24:39)
[2021-01-22] MEDS: SOLU-Medrol 40 MG VIAL IVP SCH ×3 (11:10→21:00)
[2021-01-22] MEDS: ELIQUIS PO SCH ×2 (11:11→20:54)
[2021-01-22] MEDS: MILK OF MAGNESIA PO SCH (11:11)
[2021-01-22] MEDS: SYNTHROID 75 mcg TAB PO SCH (11:12)
[2021-01-22] MEDS: LOPRESSOR TAB 25 MG PO SCH ×2 (11:12→20:54)
[2021-01-22] MEDS: LASIX IVP SCH (11:12)
[2021-01-22] MEDS: PROTONIX TAB 40 MG PO SCH ×2 (11:12→20:54)
[2021-01-22] MEDS ORDERED: POTASSIUM CHL 60 MEQ/NS 0.45% 500 ML IV PRN (19:06)
[2021-01-22] MEDS ORDERED: K-DUR TAB 20 MEQ PO PRN (19:06)
[2021-01-22] MEDS ORDERED: KLOR-CON PO PRN (19:06)
[2021-01-22] MEDS ORDERED: K-RIDER 10 MEQ/NS 100 ML 10 MEQ/100 ML BAG IV PRN (19:06)
[2021-01-22] MEDS ORDERED: MICRO K EXTEN CAP 10 MEQ PO PRN (19:06)
[2021-01-22] MEDS ORDERED: POTASSIUM CHL 40 MEQ/NS 0.45% 500 ML IV PRN (19:06)
[2021-01-22] MEDS ORDERED: POTASSIUM CHLORIDE LIQ 20 MEQ UDC PO PRN (19:06)
[2021-01-23] MEDS: XOPENEX 1.25 MG/3 ML NEBULE NEB SCH ×3 (00:45→18:36)
[2021-01-23] MEDS: D5W 1000 ML IV 1,000 ML IV SCH ×4 (01:00→18:30)
[2021-01-23] MEDS: MORPHINE SULFATE INJ 2 MG INJ IVP PRN ×5 (02:23→20:04)
[2021-01-23 05:25] LABS: BASOPHILS % (AUTO) 0.2 % (0.2-1.0); HEMOGLOBIN 10.1 g/dL (13.5-18.0); LYMPHOCYTES # (AUTO) 0.1 X10^3/uL (1.3-2.9); LYMPHOCYTES % (AUTO) 0.8 % (21.0-51.0); MEAN CORPUSCULAR HEMOGLOBIN 27.4 pg (27.0-34.0); MEAN CORPUSCULAR HGB CONC 33.5 g/dL (33.0-35.0); MEAN CORPUSCULAR VOLUME 81.9 fL (80.0-100.0); MEAN PLATELET VOLUME 7.4 fL (7.4-11.0); MONOCYTES # (AUTO) 1.1 x10^3/uL (0.3-0.8); MONOCYTES % (AUTO) 10.8 % (0.0-13.0); NEUTROPHILS # (AUTO) 9.1 x10^3/uL (2.2-4.8); NEUTROPHILS % (AUTO) 88.2 % (42.0-75.0); PLATELET COUNT 285 X10^3/uL (150.0-450.0); RED BLOOD COUNT 3.67 X10^6/uL (4.7-6.0); RED CELL DISTRIBUTION WIDTH 16.1 % (11.6-16.5); WHITE BLOOD COUNT 10.3 X10^3/uL (3.6-10.0)
[2021-01-23] MEDS: CORDARONE TAB 200 MG PO SCH (06:30)
[2021-01-23 06:32] LABS: ALANINE AMINOTRANSFERASE 14 Units/L (12-78); ALBUMIN 2.1 g/dL (3.4-5.0); ALKALINE PHOSPHATASE 73 Units/L (46-116); ASPARTATE AMINO TRANSFERASE 10 Units/L (15-37); BLOOD UREA NITROGEN 27 mg/dL (7-18); CALCIUM 7.6 mg/dL (8.5-10.1); CHLORIDE 93 mmol/L (98-107); COR CA(FOR HYPOALB) 9.1 mg/dL (8.5-10.1); COR NA(FOR HYPERGLY) 135 mmol/L (136-145); CREATININE 1.13 mg/dL (0.70-1.30); SODIUM 134 mmol/L (136-145); TOTAL PROTEIN 5.2 g/dL (6.4-8.2); eGFR NON BLACK RACES > 60 (>60)
[2021-01-23] MEDS: SOLU-Medrol 40 MG VIAL IVP SCH ×2 (06:33→13:54)
[2021-01-23 06:34] LABS: CARBON DIOXIDE 42.7 mmol/L (21-32)
[2021-01-23 06:55] LABS: ABG BASE EXCESS 22.5 mmol/L (-2.0-2.0)
[2021-01-23 06:58] LABS: ABG ALLEN TEST POS; ABG HCO3 50.5 mmol/L (22-26)
[2021-01-23] MEDS: PULMICORT NEB TX 0.5 MG NEB SCH ×2 (08:51→21:58)
[2021-01-23] MEDS: BROVANA IN SCH ×2 (08:51→21:58)
[2021-01-23] MEDS: LASIX IVP SCH (09:30)
[2021-01-23] MEDS ORDERED: LOPRESSOR INJ 5 MG AMP IVP PRN (10:42)
[2021-01-23] MEDS ORDERED: LOPRESSOR INJ 5 MG AMP ONE (10:43)
[2021-01-23] MEDS ORDERED: LANOXIN INJ IVP ONE (11:10)
[2021-01-23] MEDS: LOPRESSOR TAB 25 MG PO SCH (12:28)
[2021-01-23] MEDS: ELIQUIS PO SCH (12:28)
[2021-01-23] MEDS: MILK OF MAGNESIA PO SCH (12:29)
[2021-01-23] MEDS: PROTONIX TAB 40 MG PO SCH (12:30)
[2021-01-23] MEDS: SYNTHROID 75 mcg TAB PO SCH (12:30)
[2021-01-23] MEDS ORDERED: APRESOLINE INJ 20 MG VIAL IVP PRN (13:59)
[2021-01-23] MEDS ORDERED: MORPHINE SULFATE INJ 2 MG INJ IVP ONE (16:40)
[2021-01-23] MEDS ORDERED: CARDIZEM INJ 50 MG VIAL IVP ONE (17:02)
[2021-01-23] MEDS ORDERED: CARDIZEM INJ 50 MG VIAL ONE (17:08)
[2021-01-23] MEDS: LOVENOX INJ 40 MG SYR SC SCH (20:17)
[2021-01-23] MEDS: PROTONIX INJ 40 MG VIAL IVP SCH (20:21)
[2021-01-24] MEDS: XOPENEX 1.25 MG/3 ML NEBULE NEB SCH ×3 (00:05→18:47)
[2021-01-24] MEDS: MORPHINE SULFATE INJ 2 MG INJ IVP PRN ×6 (00:10→14:16)
[2021-01-24] MEDS: SOLU-Medrol 40 MG VIAL IVP SCH ×2 (00:51→06:26)
[2021-01-24] MEDS: CARDIZEM INJ 125 MG VIAL 125 MG in NS 100 ML IV 100 ML IV PRN ×2 (01:43→09:58)
[2021-01-24] MEDS: D5W 1000 ML IV 1,000 ML IV SCH ×2 (06:25→18:25)
[2021-01-24] MEDS: PULMICORT NEB TX 0.5 MG NEB SCH ×2 (09:00→21:42)
[2021-01-24] MEDS: BROVANA IN SCH ×2 (10:42→21:42)
[2021-01-24] MEDS: HALDOL INJ IM PRN ×2 (10:43→19:46)
[2021-01-24] MEDS ORDERED: VALIUM INJ IVP PRN (11:49)
[2021-01-24] MEDS: LASIX IVP SCH ×2 (14:02→14:06)
[2021-01-24] MEDS: PROTONIX INJ 40 MG VIAL IVP SCH ×3 (14:02→20:45)
[2021-01-24] MEDS: SOLU-Medrol 125 MG VIAL IVP SCH ×2 (14:25→22:30)
[2021-01-24] MEDS: LOVENOX INJ 40 MG SYR SC SCH (20:44)
[2021-01-25] MEDS: XOPENEX 1.25 MG/3 ML NEBULE NEB SCH (00:05)
[2021-01-25 00:09] VITALS: BP 88/50
[2021-01-25] MEDS ORDERED: LINZESS PO SCH (09:00)
== END 2021-01-25 04:20 | disposition expired | DRG 177 ==
LOC: ER 19:41 → OBS 21:47 → INTOOBSV 21:47 → OBS 23:40 → ICU 01-16 16:18
PROVIDERS: ADMIT Family Medicine; ATTEND Internal Medicine
DX: Z99.81 Dependence on supplemental oxygen; J96.11 Chronic respiratory failure with hypoxia; K59.09 Other constipation; U07.1 COVID-19; Z66 Do not resuscitate; R13.11 Dysphagia, oral phase; Z85.54 Personal history of malignant neoplasm of ureter; R26.89 Other abnormalities of gait and mobility; R94.31 Abnormal electrocardiogram [ECG] [EKG]; R62.7 Adult failure to thrive; J12.82 Pneumonia due to coronavirus disease 2019; Z85.819 Personal history of malignant neoplasm of unspecified site of lip, oral cavity, and pharynx; I46.8 Cardiac arrest due to other underlying condition; I10 Essential (primary) hypertension; J44.1 Chronic obstructive pulmonary disease with (acute) exacerbation; J96.12 Chronic respiratory failure with hypercapnia; I48.91 Unspecified atrial fibrillation; E05.90 Thyrotoxicosis, unspecified without thyrotoxic crisis or storm